=== PATIENT | male | born 1945 | race Caucasian/White ===

== ENCOUNTER 2018-03-23 13:35 | Emergency (ER) | payer OTHER, MEDICARE, SELFPAY ==
[2018-03-23 13:36] VITALS: BP 142/97; PULSE 71; RESP 16; TEMP 36.4; BMI 20.5
[2018-03-23 14:15] LABS: Bacteria 0 SEEN /hpf (None Seen); Mucous, Urine 0 SEEN /hpf (<or=2+); Squamous Epithelial Cells - UA 0 SEEN /hpf (0-5)
[2018-03-23 14:17] LABS: Color, Urine Red (Yellow); Glucose, Dipstick Normal (Normal); Ketone-Dipstick 5 mg/dl (Negative); Leukocyte Esterase-Dipstick 25 /ul (Negative); Nitrite-Dipstick Negative (Negative); Occult Blood-Urine 250 /ul (Negative); Protein-Dipstick 100 mg/dl (Negative); Specific Gravity, Urine 1.015 (1.002-1.030); Urine Bilirubin Dipstick Negative (Negative); Urine Clarity Cloudy (Clear); Urine Urobilinogen Normal (Normal)
[2018-03-23 14:22] LABS: Red Blood Cells-Urine > 100 SEEN /hpf (0-5)
[2018-03-23 14:23] LABS: White Blood Cells 0-5 SEEN /hpf (0-5)
[2018-03-23 15:56] VITALS: BP 148/92; PULSE 84; RESP 16
--- NOTE | 2018-03-23 15:59 | CT_ITS ---
STUDY: CT ABDOMEN AND PELVIS WITHOUT CONTRAST REASON FOR EXAM: Male, 72 years old. Gross hematuria denies pain RADIATION DOSAGE (If Supplied By Facility): CTDIvol = ( 6.15 ) mGy, DLP = ( 321.09 ) mGycm TECHNIQUE: Transaxial images were obtained from the dome of the diaphragm to the symphysis pubis without oral contrast, and without intravenous contrast. Sagittal and coronal images were reconstructed. Individualized dose optimization techniques were used for this CT. COMPARISON: None. FINDINGS: The visualized lung bases are unremarkable. The visualized portions of the heart are within normal limits. There is decreased attenuation of the liver consistent with steatosis. Normal gallbladder and extrahepatic biliary system. There are multiple benign calcified granulomata of the spleen. Normal pancreas. Normal bilateral adrenal glands. Normal right kidney. Normal left kidney. Normal visualized stomach. There mildly distended loops of small bowel. There few diverticula present without diverticulitis. The appendix is visualized and appears normal. There is diffuse atherosclerotic calcification of the abdominal aorta, without a demonstrated aneurysm. Normal inferior vena cava. Normal retroperitoneum. There is an abnormal mass within the right side of the bladder with peripheral calcification measuring 3.7 x 3.8 x 2.2 cm. Normal visualized prostate gland. There is postoperative change status post hernia repair in the anterior abdominal wall. There is mild degenerative change of the thoracolumbar spine. CT/Abdomen/Pelvis without Cont IMPRESSION: There is an abnormal 3.7 x 3.8 x 2.2 cm mass in the right side of the bladder with rim calcification highly suspicious for neoplasm until proven otherwise. Recommend follow-up studies such as cystoscopy and/or cystogram. There is mild to moderate stool in the colon. All there is no evidence of hydronephrosis. Diverticulosis no evidence of diverticulitis. N.B. : The above information has been verbally conveyed by Billie Jacques MD to Dr. Juana Estrada MD, on 03/23/2018 17:03:59 (ET). Electronically Signed: Billie Jacques MD at 16:49 EST Tel , Service support ,
[2018-03-23 16:26] LABS: Absolute Lymphocyte Count 1.46 X10^3/ul (0.83-4.51); Absolute Neutrophil Count 3.7 X10^3/uL (2.0-7.7); Basophil# 0.04 X10^3/uL; Basophil% 0.7 % (0-1); Eosinophil# 0.13 X10^3/uL; Eosinophils% 2.2 % (0-5); Hematocrit 44.9 % (40-54); Hemoglobin 14.9 g/dl (13.0-16.5); Lymphocyte # 1.46 X10^3/ul (4.0); Lymphocyte % 24.8 % (19-41); Mean Corp Hgb Conc 33.2 g/gl (32-36); Mean Corpuscular Hgb 30.2 pg (27.0-32.0); Mean Corpuscular Volume 90.9 fL (80-94); Mean Platelet Vol. 11.1 fl (6.2-12.0); Monocyte# 0.59 X10^3/uL; Neutrophil # 3.66 X10^3/uL (2.7-7.7); Neutrophil % 62.1 % (47-70); Platelet Count 186 K/mm3 (150-450); RBC Distribution Width CV 13.4 % (11.6-14.6); RBC Distribution Width SD 44.7 fl (35.1-43.9); Red Blood Count 4.94 M/mm3 (4.6-6.2); White Blood Count 5.9 K/mm3 (4.4-11.0)
[2018-03-23 16:27] LABS: Anion Gap 7 (5-15); BUN 17 mg/dL (7-18); Chloride 103 mmol/L (98-107); EST Glomerular Filtration Rate 78 mL/min (>60); Est Glom Filt Rate - Afr Amer 95 mL/min (>60); Estimated Creatinine Clearance 67.66 ml/min; Glucose 86 mg/dL (74-106); POSITIVE COUNT NO; POSITIVE DIFFERENTIAL NO; POSITIVE MORPHOLOGY NO; Potassium 3.3 mmol/L (3.5-5.1); Sodium Level 140 mmol/L (136-145)
--- NOTE | 2018-03-23 17:00 | ED.VISSUMM ---
- ER Visit Summary Date of Service: 03/23/18 Chief Complaint: [Hematuria] History of Present Illness: The patient is a 72 M [presents to the emergency department with complaint of blood in his urine that started this morning around 10:30 AM. Patient describes just minimal dysuria and some frequency. He denies any back pain or vomiting. Denies any fever. He is not ever had hematuria before. Patient does have a history of COPD and history of hypertension. Patient is not on any blood thinners.] Physical Examination: [HEENT-PERRLA, EOMI. Cranial nerves II through XII grossly intact. TMs clear. Mucous membranes moist. No adenopathy. Cardiovascular-regular rate and rhythm without murmur or ectopy Lungs-clear to auscultation, chest wall stable without crepitus or subcu emphysema Abdomen-normoactive bowel sounds, soft, nontender, no rebound or rigidity, no peritoneal signs. Extremities-intact ?4, normal range of motion, normal pulses, atraumatic] Test Results: [Urinalysis obtained showed greater than 100 RBCs in the urine without any signs of infection otherwise negative for nitrites 25 facet esterase, no WBCs and no bacteria seen. CBC with differential and chemistries were unremarkable. CT scan abdomen pelvis without contrast obtained showed a 4 x 2 cm mass on the right side of the bladder concerning for neoplasm.] Emergency Department Course and Treatment: [] Treatment Plan: [Patient case discussed with patient and his and they are aware that patient has a suspicious mass in the bladder that will need further investigation and recommended follow-up with urology for possible cystoscopy for definitive diagnosis. No further treatment indicated at this time. [facility] and states that he will go through the [place] but I will refer him to Dr. Hammond as well.] Disposition: [Discharged home in stable condition] Impression: [Hematuria Bladder mass] This note was generated with [employer] dictation software. It may contain incorrect words, spelling, and punctuation that were not noted in review of the chart prior to signing ED Disposition - Plan for ED Patient: Chief Complaint: Complaint [facility] [[facility] Provider] -
--- NOTE | 2018-03-23 17:05 | ED.DCSUM_ITS ---
- ER Visit Summary Date of Service: 03/23/18 Chief Complaint: [Hematuria] History of Present Illness: The patient is a 72 M [presents to the emergency department with complaint of blood in his urine that started this morning around 10:30 AM. Patient describes just minimal dysuria and some frequency. He de nies any back pain or vomiting. Denies any fever. He is not ever had hematuria before. Patient does have a history of COPD and history of hypertension. Patient is not on any blood thinners.] Physical Examination: [HEENT-PERRLA, EOMI. Cranial nerves II through XII grossly intact. TMs clear. Mucous membranes moist. No adenopathy. Cardiovascular-regular rate and rhythm without murmur or ectopy Lungs-clear to auscultation, chest wall stable without crepitus or subcu emphysema Abdomen-normoactive bowel sounds, soft, nontender, no rebound or rigidity, no peritoneal signs. Extremities-intact ?4, normal range of motion, normal pulses, atraumatic] Test Results: [Urinalysis obtained showed greater than 100 RBCs in the urine without any signs of infection otherwise negative for nitrites 25 facet esterase, no WBCs and no bacteria seen. CBC with differential and chemistries were unremarkable. CT scan abdomen pelvis without contrast obtained showed a 4 x 2 cm mass on the right side of the bladder concerning for neoplasm.] Emergency Department Course and Treatment: [] Treatment Plan: [Patient case discussed with patient and his and they are aware that patient has a suspicious mass in the bladder that will need further investigation and recommended follow-up with urology for possible cystoscopy for definitive diagnosis. No further treatment indicated at this time. Patient is [facility] and states that he will go through the [place] but I will refer him to Dr. Hammond as well.] Disposition: [Discharged home in stable condition] Impression: [Hematuria Bladder mass] This note was generated with [employer] dictation software. It may contain incorrect words, spelling, and punctuation that were not noted in review of the chart prior to signing ED Disposition - Plan for ED Patient: Chief Complaint: Complaint [facility] [[facility] Care Provider] -
--- NOTE | 2018-03-23 17:05 | ED.DEP ---
ED Disposition - Plan for ED Patient: Chief Complaint: Complaint Instructions: Hematuria: Possible Causes, ED Hematuria Referrals: [facility],[place] [Primary Care Provider] - 3-5 Days Harshad Hammond MD [STAFF PHYSICIAN] - 3-5 Days
[2018-03-23 17:10] VITALS: BP 146/83; PULSE 68; RESP 18; O2SAT 97
--- NOTE | 2018-03-23 17:23 | ED.RN ---
REVIEWED D/C INSTRUCTIONS, FOLLOW UP CARE, AND S/S THAT WOULD WARRANT A RETURN TO THE ED WITH PT. PT VERBALIZED AN UNDERSTANDING AND DENIES FURTHER QUESTIONS FOR THIS RN. PT SKIN P/W/D, RESP EVEN AND UNLABORED, PT A&O X 3, NO DISTRESS NOTED. PT AMBULATED OUT OF ED, GAIT STEADY.
== END 2018-03-23 17:26 | disposition home or self-care (01) ==
LOC: ED 14:23
PROVIDERS: Emergency Provider Emergency Medicine
DX: R31.9 Hematuria, unspecified (principal); N32.9 Bladder disorder, unspecified; R30.0 Dysuria; R35.0 Frequency of micturition; J44.9 Chronic obstructive pulmonary disease, unspecified; I10 Essential (primary) hypertension; Z79.82 Long term (current) use of aspirin; Z79.899 Other long term (current) drug therapy; Z87.891 Personal history of nicotine dependence
CPT/HCPCS: 74176; 80048; 81001; 85025; 87086; 99284; A4216

== ENCOUNTER 2018-05-20 07:37 | Emergency (ER) | payer MEDICARE, SELFPAY ==
[2018-05-20 07:38] VITALS: BP 125/76; PULSE 109; RESP 16; TEMP 36.3; O2SAT 96; BMI 19.5
--- NOTE | 2018-05-20 08:23 | ED.VISSUMM ---
- ER Visit Summary Date of Service: 05/20/18 Chief Complaint: michele catheter problem History of Present Illness: The patient is a 73 M who presents for concern for Michele catheter displacement. Patient had a Michele catheter placed 5 days ago after a cystoscopy and removal of a bladder tumor at the [place]. Patient has been having no issues with the Michele catheter and states he did have some hematuria for the first 3-4 days but that is now lightened up. Today he noted that the catheter looked different and he was able to see part of it at his penis that he did not notice before. He has been feeling some pain and pressure in the penis, noted when he sits or stands. Patient denies any fever, abdominal pain, nausea or vomiting, diarrhea, or any other complaints at this time. Physical Examination: Patient is well-nourished and well-developed sitting in bed in no distress. Hemodynamically stable. Afebrile. Examination of the Michele catheter shows pink tinged urine, clear, and the Michele catheter and leg bag. No tenderness noted to the penis. Very small amount of dried blood circumferentially around the proximal Michele catheter. No suprapubic fullness or tenderness. Remainder of exam unremarkable. Test Results: [] Emergency Department Course and Treatment: Michele catheter was flushed and drained very easily. Nurse provided education on the appearance of the Michele catheter and how with movement of the penis, sometimes more or less of the catheter will be exposed. Patient was given Tylenol and had improvement in his discomfort. There was no noted issue with the Michele catheter and it is draining well. Patient felt well and was discharged home. He will follow-up as he was supposed to for further workup of his bladder tumor. Treatment Plan: [] Disposition: [] Impression: Michele catheter check This note was generated with [employer] dictation software. It may contain incorrect words, spelling, and punctuation that were not noted in review of the chart prior to signing ED Disposition - Plan for ED Patient: Disposition: Home or Assisted Living Instructions: ED Catheter Care Michele Referrals: [facility] [Primary Care Provider] - Keep [facility] appointment
[2018-05-20] MEDS: Acetaminophen 325 MG Tablet 650 MG PO (09:04)
== END 2018-05-20 09:24 | disposition home or self-care (01) ==
PROVIDERS: Emergency Provider Emergency Medicine
DX: Z46.6 Encounter for fitting and adjustment of urinary device (principal); R31.9 Hematuria, unspecified; Z79.899 Other long term (current) drug therapy
CPT/HCPCS: 99282

== ENCOUNTER 2018-07-05 07:20 | Inpatient (IN) | payer MEDICARE, SELFPAY ==
[2018-06-28 08:33] VITALS: BMI 19.4
[2018-07-05] VITALS (17 sets, daily range): BP systolic 88–127; BP diastolic 45–73; PULSE 75–115; RESP 10–20; TEMP 36.4–37; O2SAT 95–100; BMI 19.2; BMI 19.8
--- NOTE | 2018-07-05 07:36 | RAD_ITS ---
STUDY: X-RAY CHEST REASON FOR EXAM: Male, 73 years old. History of fever. Patient is on chemotherapy for bladder carcinoma. TECHNIQUE: PA and lateral views of the chest. COMPARISON: Comparison is made with prior study dated June 25, 2015. FINDINGS: A right-sided portacatheter is seen with the tip in the midportion of the superior vena cava. Hyperinflation. Decreased bilateral bronchovascular markings suggestive of emphysematous changes. Stable mild bilateral apical scarring. There is no demonstrated pleural abnormality. Normal size heart. Normal mediastinum and rozina. Normal visualized pulmonary arteries. Normal visualized aortic arch and descending thoracic aorta. Normal visualized thoracic spine. Normal visualized ribs, clavicles, and shoulders. There is no demonstrated abnormality of the visualized soft tissue structures of the upper abdomen. RAD/Chest PA and Lateral IMPRESSION: Hyperinflation and COPD. The lungs are clear. Electronically Signed: Evans Pearce, at 10:15 EDT , Service support ,
[2018-07-05 08:23] LABS: Color, Urine Yellow (Yellow); Glucose, Dipstick Normal (Normal); Ketone-Dipstick 5 mg/dl (Negative); Leukocyte Esterase-Dipstick 500 /ul (Negative); Nitrite-Dipstick Positive (Negative); Occult Blood-Urine 25 /ul (Negative); Protein-Dipstick 30 mg/dl (Negative); Specific Gravity, Urine 1.015 (1.002-1.030); Urine Clarity Sl. Cloudy (Clear); Urine Urobilinogen 4 mg/dl (Normal)
[2018-07-05 08:28] LABS: Urine Bilirubin Dipstick 1 mg/dL (Negative)
--- NOTE | 2018-07-05 08:29 | ED.DCSUM_ITS ---
- ER Visit Summary Date of Service: 07/05/18 Chief Complaint: Fever History of Present Illness: The patient is a 73 M who presents with a fever that began today. Patient states his temperature this morning was 100.6 at home. Patient recently started chemotherapy for bladder cancer. Patient states that he was told if his temperature was greater than 100.4 he should come to the emergency department. Further evaluation. Patient admits to a headache. Patient admits to some nausea. Patient denies any vomiting. Patient states he has had some intermittent episodes of hematuria. Patient denies any dysuria however. Patient denies any chest pain or cough. Physical Examination: Vital signs are stable except for mild tachycardia of 115. Patient is afebrile here. Patient is in no acute distress. Oral mucosa is pink and moist. Neck is supple. Trachea is midline. There is no JVD noted. Heart was regular and tachycardic. Lungs clear and equal bilateral. Abdomen is soft and nontender. Cranial nerves II through XII are intact. There are no focal motor or sensory deficits noted. The remaining physical exam is within normal limits. Test Results: Urinalysis shows evidence of urinary tract infection. CBC shows a white blood cell count of 0.9. Potassium was slightly low at 3.3. Urine culture and blood cultures were obtained. Lactate was normal. Emergency Department Course and Treatment: Patient was given IV fluid bolus here. Patient was started on Zosyn. Patient felt better on reevaluation. Case was discussed with Dr. Espinosa. She will admit the patient to PCU stepdown. Patient understood and was agreeable with the plan. All questions were answered. Disposition: Admit to hospital Impression: 1. Urinary tract infection 2. Neutropenic sepsis This note was generated with [employer] dictation software. It may contain incorrect words, spelling, and punctuation that were not noted in review of the chart prior to signing ED Disposition - Plan for ED Patient: Disposition: Acute Care Hospital [facility] Diagnosis: Urinary tract infection, Neutropenic sepsis [facility] [Primary Care Provider] -
[2018-07-05 08:31] LABS: Bacteria 4+ /hpf (None Seen); Mucous, Urine RARE /hpf (<or=2+); Red Blood Cells-Urine 0-5 SEEN /hpf (0-5); Squamous Epithelial Cells - UA 0-5 SEEN /hpf (0-5); White Blood Cells 25-50 SEEN /hpf (0-5)
[2018-07-05 08:41] LABS: Absolute Lymphocyte Count 0.37 X10^3/ul (0.83-4.51); Basophil# 0.01 X10^3/uL; Basophil% 1.1 % (0-1); Eosinophil# 0.01 X10^3/uL; Eosinophils% 1.1 % (0-5); Hematocrit 37.6 % (40-54); Hemoglobin 12.2 g/dl (13.0-16.5); Lymphocyte # 0.37 X10^3/ul (4.0); Mean Corp Hgb Conc 32.4 g/gl (32-36); Mean Corpuscular Hgb 28.9 pg (27.0-32.0); Mean Corpuscular Volume 89.1 fL (80-94); Mean Platelet Vol. 10.3 fl (6.2-12.0); Monocyte# 0.46 X10^3/uL; Monocyte% 52.3 % (0-10); Neutrophil # 0.01 X10^3/uL (2.7-7.7); Neutrophil % 1.2 % (47-70); Platelet Count 158 K/mm3 (150-450); RBC Distribution Width CV 13.5 % (11.6-14.6); RBC Distribution Width SD 44.3 fl (35.1-43.9); Red Blood Count 4.22 M/mm3 (4.6-6.2)
[2018-07-05 08:46] LABS: POSITIVE COUNT YES; POSITIVE DIFFERENTIAL YES; POSITIVE MORPHOLOGY YES; White Blood Count 0.9 K/mm3 (4.4-11.0)
[2018-07-05 08:47] LABS: Differential Indicated SCAN CRITERIA MET
--- NOTE | 2018-07-05 08:47 | ED.RN ---
WBC 0.9, MD AWARE.
[2018-07-05 08:57] LABS: AST(SGOT) 32 U/L (15-37); Alanine Aminotransfer ALT/SGPT 96 U/L (16-61); Albumin, Serum 3.4 g/dL (3.2-5.0); Alkaline Phosphatase 173 U/L (45-117); Anion Gap 6 (5-15); BUN 21 mg/dL (7-18); BUN/Creat Ratio 22.5 RATIO (10-20); Calcium,Total 8.6 mg/dL (8.5-10.1); Chloride 100 mmol/L (98-107); Creatinine, Serum 0.94 mg/dL (0.70-1.30); EST Glomerular Filtration Rate 84 mL/min (>60); Est Glom Filt Rate - Afr Amer 102 mL/min (>60); Estimated Creatinine Clearance 66.41 ml/min; Globulin 3.4 g/dL (2.2-4.2); Glucose 103 mg/dL (74-106); Potassium 3.3 mmol/L (3.5-5.1); Protein, Total 6.8 g/dL (6.4-8.2); Sodium Level 136 mmol/L (136-145)
[2018-07-05 08:59] LABS: Lactic Acid 1.1 mmol/L (0.4-2.0)
[2018-07-05] MEDS: Acetaminophen 500 MG Tablet 1000 MG PO (09:03)
--- NOTE | 2018-07-05 11:10 | HP.PCM_ITS ---
History of Present Illness Date of Admission: 07/05/18 Chief Complaint: fever The patient is a 73 year old M with a PMH as listed who was admitted via the ED on 07/05/18 with a complaint of fever. He was recently diagnosed with bladder cancer in March 2018 and is s/p bladder tumor resection in May 2018. He started his first round of chemotherapy last week Sunday and has had 3 sessions and the first 1. He started having fever on the day prior to admission with temperature began to 100.4. He was arrested nausea but denied any vomiting. He denied any cough or chest pain or shortness of breath, abdominal pain, burning with urination, diarrhea vomiting. He had been told by his oncologist to come to the hospital if his fever was under 0.4 Fahrenheit or higher and so he decided to come in. On admission in the ED, vitals were significant for low blood pressure with systolic being in the 80s. CMP showed creatinine of 3.3 and lactic acid was only 1.1. White cell count was 0.9. Chest x-ray showed no evidence of infiltrate. He has been admitted to be managed for febrile neutropenia. [] Past Medical History Past Medical History (Chronic Problems): Chronic Problems (Last Updated 06/26/18 @ 08:37 by Beverly Clemons) Hypertension (Chronic) Bladder cancer (Chronic) Malignant small cell cancer (Chronic) Medical History: Medical History (Last Updated 06/26/18 @ 08:37 by Beverly Clemons) Bilateral tinnitus H93.13 Diverticulitis K57.92 Hypokalemia E87.6 bladder tumor resection port placement Power Port placed 06/25/18 COPD (chronic obstructive pulmonary disease) J44.9 COPD (chronic obstructive pulmonary disease) J44.9 Allergies No Known Allergies Allergy (Verified 07/05/18 07:22) Home Medications: Ambulatory Orders Medication Instructions Recorded Ondansetron [Zofran] 8 mg PO Q8H PRN PRN 30 Days #30 tab 06/12/18 Ensure Enlive 120 ml PO BID 07/05/18 Tiotropium [place] [Spiriva] 18 mcg IH DAILY 07/05/18 Surgical History: Surgical History (Last Reviewed 06/26/18 @ 08:36 by Beverly Clemons) History of cystoscopy Z98.890 05/15/18 Surgical History: herniorrhaphy, - - right elbow surgery Psychiatric History: No pertinent psych hx, Anxiety Lives: Spouse/ Significant Other Smoking Status: Former smoker Alcohol: None - hasnt drank since March 2018. Drugs: None - *Family History Maternal Family History: Family History (Last Reviewed 06/26/18 @ 08:36 by Beverly Clemons) Mother Breast cancer Father CVA (cerebral vascular accident) Hypertension Sister Hypertension Brother Hypertension History Items: Cancer, Dementia - alive age 92 Paternal Family History: Family History (Last Reviewed 06/26/18 @ 08:36 by Beverly Clemons) Mother Breast cancer Father CVA (cerebral vascular accident) Hypertension Sister Hypertension Brother Hypertension History Items: Heart Disease - age 79 Review of Systems Constitutional: Reports: Fever. Denies: Chills, Malaise, Weakness, Weight Change, Fatigue Eyes: Denies: Blurred vision HEENT: Denies: Head Aches, Sinus Congestion, Sinus Drainage Cardiovascular: Denies: Chest Pain, Chest Tightness, Edema, Heaviness, Light Headedness, Orthopnea, Palpitations Respiratory: Denies: Cough, Shortness of breath at rest, Sputum production Gastrointestinal: Reports: Nausea. Denies: Abdominal Pain, Diarrhea, Vomiting Genitourinary: Denies: Dysuria, Hematuria, Hesitancy, Incontinence Musculoskeletal: Denies: Joint Pain, Joint Tenderness Skin: Denies: Rash, Wounds Neurological: Denies: Numbness, Tingling, Focal weakness Psychiatric: Denies: Anxiety, Depression, Homicidal Ideations, Suicidal Ideations Hematologic/ Lymphatic: Denies: Easy Bruising, Easy Bleeding VTE Information - Inpt Only VTE Present on Admission: No VTE Pharm Prophylaxis ordered?: Yes Patient Problems: Active and Suspected Problems (Last Updated 06/26/18 @ 08:37 by Beverly Clemons) Urinary tract infection (Acute) Neutropenic sepsis (Acute) - Physical Exam General: Alert, Oriented x3, Cooperative, No apparent distress HEENT: Atraumatic, PERRLA, EOMI, Normocephalic Oral: Moist Mucosa Neck: Supple, No JVD, Negative Carotid Bruits Lungs: Clear to auscultation, Normal air movement, No rhonchi, No wheeze, No rales Cardiovascular: Regular rate, Regular Rhythm, Normal S1, Normal S2, No murmurs Abdomen: Bowel Sounds Present, Soft, Non Tender, Non-Distended, No Hepato- splenomegaly Extremities: No clubbing, No cyanosis, No edema, Capillary Refill Less than 3 Seconds Skin: No rashes, No breakdown Musculoskeletal: No Tenderness to Palpation of Joints or Extremities Lymphatic: No Cervical, Supraclavicular, or Inguinal Adenopathy Neurological: Cranial nerves II-XII grossly intact, Neuro grossly intact, Motor Exam 5/5 strength throughout Psych/Mental Status: Normal Affect, Appropriate, Alert and oriented to time, place, person, mood and affect Vital Signs Temp Pulse Resp BP Pulse Ox 98.1 F 84 18 88/49 L 96 07/05/18 10:50 07/05/18 10:52 07/05/18 10:52 07/05/18 10:52 07/05/18 10:52 Oxygen Delivery Method Room Air Weight: 145 lb 11.609 oz Body Mass Index (BMI) 19.2 Laboratory Tests Past 24 Hrs 07/05/18 07/05/18 07/05/18 08:10 08:25 08:25 WBC 0.9 L* RBC 4.22 L Hgb 12.2 L Hct 37.6 L MCV 89.1 MCH 28.9 MCHC 32.4 RDW 13.5 RDW Differential 44.3 H Plt Count 158 MPV 10.3 Immature Gran % (Auto) 2.300 H Neut % (Auto) 1.2 L Lymph % (Auto) 42.0 H [place] % (Auto) 52.3 H Eos % (Auto) 1.1 Baso % (Auto) 1.1 H Absolute Neuts (auto) 0.0 L Absolute Lymphs (auto) 0.37 L Total Counted Not Reportable Differential Comment COMMENT Diff Path Review May foll Sodium 136 Potassium 3.3 L Chloride 100 Carbon Dioxide 30.0 Anion Gap 6 BUN 21 H Creatinine 0.94 Estim Creat Clear Calc 66.41 Est GFR (MDRD) Af Amer 102 Est GFR (MDRD) Non-Af 84 BUN/Creatinine Ratio 22.5 H Glucose 103 Lactic Acid Calcium 8.6 Total Bilirubin 0.70 AST 32 ALT 96 H Alkaline Phosphatase 173 H Total Protein 6.8 Albumin 3.4 Globulin 3.4 Albumin/Globulin Ratio 1.0 Urine Color Yellow Urine Clarity Sl. Cloudy Urine pH 8.0 Ur Specific [place] 1.015 Urine Protein 30 H Urine Glucose (UA) Normal Urine Ketones 5 H Urine Occult Blood 25 H Urine Nitrite Positive H Urine Bilirubin 1 H Urine Urobilinogen 4 H Ur Leukocyte Esterase 500 H Urine RBC 0-5 SEEN Urine WBC 25-50 SEEN Ur Squamous Epith Cells 0-5 SEEN Urine Bacteria 4+ Urine Mucus RARE 07/05/18 08:25 WBC RBC Hgb Hct MCV MCH MCHC RDW RDW Differential Plt Count MPV Immature Gran % (Auto) Neut % (Auto) Lymph % (Auto) [place] % (Auto) Eos % (Auto) Baso % (Auto) Absolute Neuts (auto) Absolute Lymphs (auto) Total Counted Differential Comment Diff Path Review Sodium Potassium Chloride Carbon Dioxide Anion Gap BUN Creatinine Estim Creat Clear Calc Est GFR (MDRD) Af Amer Est GFR (MDRD) Non-Af BUN/Creatinine Ratio Glucose Lactic Acid 1.1 Calcium Total Bilirubin AST ALT Alkaline Phosphatase Total Protein Albumin Globulin Albumin/Globulin Ratio Urine Color Urine Clarity Urine pH Ur Specific [place] Urine Protein Urine Glucose (UA) Urine Ketones Urine Occult Blood Urine Nitrite Urine Bilirubin Urine Urobilinogen Ur Leukocyte Esterase Urine RBC Urine WBC Ur Squamous Epith Cells Urine Bacteria Urine Mucus Diagnostic Data Chest X-Ray 07/05/18 07:36 IMPRESSION: Hyperinflation and COPD. The lungs are clear. Electronically Signed: Evans Pearce, at 10:15 EDT , Service support , Assessment/Plan All Active Problems (Last Updated 06/26/18 @ 08:37 by Beverly Clemons) Chest pain (Acute) Encounter for education (Acute) Urinary tract infection (Acute) Neutropenic sepsis (Acute) 73-year-old male admitted with a complaint of fever. 1. Febrile neutropenia due to UTI * fever peaked at 100.4F at home and BP was in 90s and 80s systolic on admission; usually runs in 120s and 130s on BP meds * wbc was 0.9, no clear focus of infection * Admit to PCU stepdown unit in light of febrile neutropenia. * Consult oncology. * Blood cultures and urine cultures obtained. UA showed 4+ bacteria with wbc of 25-50 * Start IV zosyn. * hydrate with IVF NS ~ 150cc/hr * neutropenic and chemotherapy precautions * start SC granix 300mg daily * 2. septic shock due to UTI * SIRS criteria on admission was 2/4 (neutropenia, tachycardia with HR of 115) * BP was in 80s and 90s systolic * resuscitate per sepsis protocol wtih IVF NS ~ 30cc/hr over first 3 hours, then continue with 150 cc/h * Patient currently stable though blood pressures in the 90s. We will keep in PCU on stepdown status and transfer to ICU if needed. * on zofran for nausea * 3. Bladder cancer: Status post bladder tumor resection in May 2018. Undergoing chemotherapy. Oncology consulted. 4.COPD: on tiotropium. give breathing treatments DVT prophylaxis: lovenox Code status: Full code * Patient counseled extensively about different types of CODE STATUS including full code, DNR CCA and DNR CCA. Patient elects to be full code. * Total clet-cl-pmkb time 16 minutes. Code Visit Inpatient E&M: 53503 Init Hosp L3 Procedures: 60265 Advncd Care Plan 30 Min
[2018-07-05] MEDS: 0.9% Normal Saline 1,000 ML IV.SOLN. 1983 ML IV (11:45)
[2018-07-05 13:42] LABS: Pathologist Review Reviewed
[2018-07-05] MEDS: TBO-FILGRASTIM 300 MCG/0.5 ML ML SC (14:28)
[2018-07-05] MEDS: 0.9% Normal Saline 1,000 ML 150 ML IV ×2 (14:31→23:49)
[2018-07-05] MEDS: Acetaminophen 325 MG Tablet 650 MG PO ×2 (16:42→23:49)
[2018-07-05] MEDS: Ipratropium 0.5 MG/2.5 ML SOLUTION INHALATION (20:30)
[2018-07-06] VITALS (14 sets, daily range): BP systolic 107–120; BP diastolic 60–63; PULSE 75–90; RESP 14–18; TEMP 36.3–36.9; O2SAT 95–97
[2018-07-06] MEDS: 0.9% NaCl Peripheral Flush Adult/Peds IV ×2 (05:31→05:32)
[2018-07-06] MEDS: 0.9% Normal Saline 1,000 ML 150 ML IV ×2 (05:31→12:13)
[2018-07-06 05:48] LABS: Absolute Lymphocyte Count 0.63 X10^3/ul (0.83-4.51); Absolute Neutrophil Count 1.2 X10^3/uL (2.0-7.7); Basophil# 0.01 X10^3/uL; Basophil% 0.4 % (0-1); Eosinophil# 0.03 X10^3/uL; Eosinophils% 1.2 % (0-5); Hematocrit 30.9 % (40-54); Hemoglobin 9.9 g/dl (13.0-16.5); Lymphocyte # 0.63 X10^3/ul (4.0); Lymphocyte % 25.7 % (19-41); Mean Corpuscular Hgb 28.8 pg (27.0-32.0); Mean Corpuscular Volume 89.8 fL (80-94); Mean Platelet Vol. 9.9 fl (6.2-12.0); Monocyte# 0.51 X10^3/uL; Monocyte% 20.8 % (0-10); Neutrophil # 1.23 X10^3/uL (2.7-7.7); Neutrophil % 50.3 % (47-70); POSITIVE COUNT NO; POSITIVE DIFFERENTIAL NO; POSITIVE MORPHOLOGY YES; Platelet Count 124 K/mm3 (150-450); RBC Distribution Width SD 45.9 fl (35.1-43.9); Red Blood Count 3.44 M/mm3 (4.6-6.2); White Blood Count 2.5 K/mm3 (4.4-11.0)
[2018-07-06 05:49] LABS: Differential Indicated SCAN CRITERIA MET
[2018-07-06 05:56] LABS: Anion Gap 7 (5-15); BUN 21 mg/dL (7-18); BUN/Creat Ratio 23.2 RATIO (10-20); Calcium,Total 7.7 mg/dL (8.5-10.1); Chloride 112 mmol/L (98-107); EST Glomerular Filtration Rate 88 mL/min (>60); Est Glom Filt Rate - Afr Amer 106 mL/min (>60); Estimated Creatinine Clearance 71.36 ml/min; Glucose 83 mg/dL (74-106); Potassium 3.3 mmol/L (3.5-5.1); Sodium Level 145 mmol/L (136-145)
[2018-07-06] MEDS: Acetaminophen 325 MG Tablet 650 MG PO ×2 (05:57→17:12)
[2018-07-06 06:22] LABS: Differential Comment SCANNED
[2018-07-06 06:23] LABS: Platelet Estimate SLT DEC (ADEQ)
[2018-07-06] MEDS: Ipratropium 0.5 MG/2.5 ML SOLUTION INHALATION ×2 (06:49→18:57)
[2018-07-06] MEDS: Enoxaparin 40 MG/0.4 ML Syringe SC (09:27)
--- NOTE | 2018-07-06 10:09 | NURSING ---
Student nurse charting reviewed.
--- NOTE | 2018-07-06 10:18 | CASEMGMT ---
Addendum entered by Ryan Womack 07/06/18 11:09: Reviewed [facility] transfer form with pt. Pt states he does not wish to transfer to [facility] but does not wish to sign form as he states his [facility] benefits may pay for hospital stay as he has a choice plan. states they will work with payment on dc. -recommend dc summary/ instructions be faxed to Dr. Rigoberto Dukes on dc. [facility] Office is closed today. -Dr. French, oncologist Latasha PATEL Original Note: RN CM Assessment Presentation: Neutropenic Fever Intro role of CM and purpose of RN CM assessment to patient and his . Pt is awake, alert and able to participate in assessment. Demographics, PCP and Pharmacy verified. PCP: [facility], Dr. Rigoberto Dukes Preferred Pharmacy: [facility] Insurance: [facility] [place] benefits Prescription Benefit: yes, pt has short term scripts filled locally and channeler runner through [facility] LNOK: [place] Living Arrangements: Lives independently in single story home. Transportation: Drives DME: none HHC: none Patient DC goals: none DC PLAN: home Latasha GOMEZM
--- NOTE | 2018-07-06 12:06 | NS ---
Eliminate foods w/ possible bacterial contamination / chemo pt.
--- NOTE | 2018-07-06 12:43 | ONC.CONS.INP ---
Subjective Date of Service:: 07/06/18 Chief Complaint: Febrile neutropenia History of Present Illness: Mr. Arnoldo Brown is a very pleasant 73 year old man with a PMH for hypertension who presented with gross hematuria in March 2018. CT scan revealed a bladder mass. He initially went to the [facility], CT urogram on 04/04/2018 confirmed 4 cm mass involving the right side of the bladder. 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 He underwent another CT scan on 05/30/2018 which showed bladder mass with multiple liver lesions and iliac right external iliac nodes consistent with metastatic adenopathy. Transferred care to [facility], [place] and commenced with cycle 1 carboplatin/etoposide on 06/26/18 and supported with Neulasta on day 4. He experienced chills and fever (highest temp at home 100.6) on 07/05/18. As a result he presented to [facility] ED, UA suggested UTI and he was subsequently admitted for management. Urine and blood cultures obtained. Broad spectrum atb initiated. Today is day 11 of his 21 day cycle. Upon entering the room, patient sitting upright in bed eating lunch. Denies experiencing chills/feeling clammy since admission. Further denies dysuria, hematuria, urinary frequency and back pain. Describes appetite as good-fair, nausea well controlled with Zofran. Has not resulted in any emesis. Past Medical History: Chronic Problems (Last Updated 06/26/18 @ 08:37 by Beverly Clemons) Hypertension (Chronic) Bladder cancer (Chronic) Malignant small cell cancer (Chronic) Past Medical/Surgical History: Past Medical History - Most Recent Inpatient Visit Past Medical History Start: 07/05/18 12:47 Text: Status: Complete Freq: ONCE Protocol: Document 07/05/18 12:50 EY (Rec: 07/05/18 12:53 EY [id number]) BMI Required to complete PMH What is Patient's BMI 19.8 Past Medical History Unable History Recalled No Query Text:Pt Unable/Family Not Present Neurologic Medical History Hx Stroke/TIA No Hx Dementia/Alzheimer's No Hx Parkinson's Disease No Hx Seizures No Hx Multiple Sclerosis No Hx Migraines No Cardiac Medical History VTE Present on Admission No Hx of Deep Vein Thrombosis/VTE/PE No Hx Hypertension Yes: on meds Hx Chest Pain/Angina No Hx Heart Attack No Hx Cardiac Surgery/Stents/Etc. No Hx Heart Failure No Hx Pacemaker/AICD No Hx Irregular Heartbeat and/or Afib No Hx Anticoagulant Therapy No Query Text:(Coumadin, Aspirin, Plavix, Xarelto, etc.) Hx Pain in Legs when Walking/Leg Cramps No Respiratory Medical History Hx COPD Yes Hx Emphysema No Hx Smoking Yes Smoking Status Former smoker Hx Smoking Cessation Date 1984 Hx Tobacco Use in last 12 months No Hx of Pipe Smoking No Hx Sleep Apnea No Do you snore loudly (louder than talking No or can be heard through closed doors)? Do you often feel tired/ fatigued/ No sleepy during daytime? Has anyone observed you stop breathing No during sleep? STOP Results Negative GI Medical History Hx Ulcer No Hx Hepatitis No Hx Cirrhosis No Hx GI Bleed No Hx Unplanned Weight Loss No Genitourinary Medical History Indwelling Catheter in Place on Arrival/ No Admission Hx Renal Disease No Hx Dialysis No Musculoskeletal History Hx Arthritis No Hx Rheumatoid Arthritis No Endocrine Medical History Hx Diabetes No Hx Thyroid Disease No Hematologic Medical History Hx of Blood Transfusion No Hx of Transfusion in last 3 Months No Ever experience any problems with No transfusion(s)? Hx of Preganancy in last 3 Months N/A Nurse Filling Out Transfusion & EYOUNG Questions: Date: 07/05/18 Time: 12:52 Psycho/Social Medical History Hx Depression No Hx Anxiety No Hx Behavior Disorder No Hx Alcohol Use Yes: social Hx Substance Use No Other Medical History Hx Blood Disorders No Hx Anemia No Hx Cancer Yes: bladder ca Hx Drug Resistant Organism No Wound/Pressure Injury Present on Arrival No /Admission Query Text:If yes, chart assessment in Shift/Clinical Findings Central Line/PICC/VAD Present on Arrival No /Admission Antibiotics within last 7 days? No Methicillin Resistant Staphylococcus aureus Screening Active MRSA No Risk for Readmission Number of Risk Factors 3 At Risk for Readmission Patient is At Risk For Readmission Patient is eligible for Call Back Y Past Medical History (Last Updated 06/26/18 @ 08:37 by Beverly Clemons) Bilateral tinnitus (Acute) Diverticulitis (Acute) Hypokalemia (Acute) bladder tumor resection (Acute) port placement (Acute) COPD (chronic obstructive pulmonary disease) (Chronic) COPD (chronic obstructive pulmonary disease) (Chronic) Past Surgical History (Last Reviewed 06/26/18 @ 08:36 by Beverly Clemons) History of cystoscopy (Acute) Maternal Family History: Family History (Last Reviewed 06/26/18 @ 08:36 by Beverly Clemons) Mother Breast cancer Father CVA (cerebral vascular accident) Hypertension Sister Hypertension Brother Hypertension Family History: Cancer, Dementia - alive age 92 Paternal Family History: Family History (Last Reviewed 06/26/18 @ 08:36 by Beverly Clemons) Mother Breast cancer Father CVA (cerebral vascular accident) Hypertension Sister Hypertension Brother Hypertension Family History: Heart Disease - age 79 - Social History Lives: Spouse/ Significant Other Smoking Status: Former smoker Alcohol: None - hasnt drank since March 2018. Drugs: None Allergies/Adverse Reactions: Allergy/AdvReac Type Severity Reaction Status Date / Time No Known Allergies Allergy Verified 07/05/18 07:22 Review of Systems Constitutional:: Reports: Fatigue. Denies: Fever, Sweats, Weight loss, Appetite change, Chills Cardiovascular:: Denies: Chest pain, Palpitations, Dyspnea on exertion, Orthopnea, PND, Shortness of breath Respiratory: Denies: Cough, Hemoptysis, Shortness of Breath, Wheezing Gastrointestinal:: Reports: Nausea. Denies: Abdominal pain, Vomiting, Diarrhea, Constipation, Melena, Hematochezia Genitourinary: Denies: Dysuria, Hematuria, Nocturia, Flank pain Musculoskeletal:: Denies: Back pain, Myalgia, Arthralgia Skin: Denies: Rash, Skin Changes, Wounds Neurological:: Reports: Numbness, Tingling - left ankle, chronic unchanged. Denies: Headache, Dizziness, Visual changes, Tinnitus, Hearing loss Psychiatric: Denies: Anxiety, Depression, Homicidal Ideations, Suicidal Ideations Vital Signs Height 6 ft 1 in Weight: 149 lb 14.629 oz Weight in Pounds 149.9 lbs Pulse Ox 97 Temperature 98.5 F Pulse Rate 90 Respiratory Rate 14 Blood Pressure [2nd BP] 127/65 Blood Pressure 107/63 Blood Pressure Position [2nd Semi-Fowlers BP] Blood Pressure Position Sitting - Physical Exam General: Alert, Oriented x3, No apparent distress HEENT: Atraumatic, PERRLA, EOMI, Normocephalic Oropharynx:: Negative for: Dry mucosa, Ulcerated lesions Neck:: Supple, Trachea midline. Negative for: JVD, bilateral Cardiac:: Regular rate, Regular rhythm, Normal S1, Normal S2. Negative for: Murmur Lungs: Clear to auscultation, Excusion symmetrical. Negative for: Rhonchi, Wheezes Abdomen:: Bowel sounds x 4, Soft, Non-tender, Non-distended, - - minute area of ecchymosis r/t Lovenox administration. Negative for: Hepatosplenomegaly Extremities:: Negative for: Cyanosis, Edema Neurological: Neuro grossly intact Skin:: Negative for: Lesions, Rash, Petechiae, Ecchymosis Psychiatric:: Appropriate affect, Euthymic Lymphatics:: Negative for: Cervical lymphadenopathy, Supraclavicular lymphadenopathy, Axillary lymphadenopathy Laboratory Data: Microbiology 07/05/18 08:10 Urine Culture - Preliminary Urine, Clean Catch GNR Poss Pseudomonas sp Laboratory Tests 07/06/18 07/06/18 07/05/18 Range/Units 05:30 05:30 08:25 WBC 2.5 L (4.4-11.0) K/mm3 RBC 3.44 L (4.6-6.2) M/mm3 Hgb 9.9 L (13.0-16.5) g/dl Hct 30.9 L (40-54) % MCV 89.8 (80-94) fL MCH 28.8 (27.0-32.0) pg MCHC 32.0 (32-36) g/gl RDW 14.0 (11.6-14.6) % RDW Differential 45.9 H (35.1-43.9) fl Plt Count 124 L (150-450) K/mm3 MPV 9.9 (6.2-12.0) fl Immature Gran % (Auto) 1.600 H (0.0-0.9) % Neut % (Auto) 50.3 (47-70) % Lymph % (Auto) 25.7 (19-41) % [place] % (Auto) 20.8 H (0-10) % Eos % (Auto) 1.2 (0-5) % Baso % (Auto) 0.4 (0-1) % Absolute Neuts (auto) 1.2 L (2.0-7.7) X10^3/uL Absolute Lymphs (auto) 0.63 L (0.83-4.51) X10^3/ul Total Counted Not Reportable Differential Comment SCANNED Diff Path Review May foll Reviewed Platelet Estimate SLT DEC (ADEQ) Sodium 145 (136-145) mmol/L Potassium 3.3 L (3.5-5.1) mmol/L Chloride 112 H (98-107) mmol/L Carbon Dioxide 26.0 (21.0-32.0) mmol/L Anion Gap 7 (5-15) BUN 21 H (7-18) mg/dL Creatinine 0.90 (0.70-1.30) mg/dL Estim Creat Clear Calc 71.36 ml/min Est GFR (MDRD) Af Amer 106 (>60) mL/min Est GFR (MDRD) Non-Af 88 (>60) mL/min BUN/Creatinine Ratio 23.2 H (10-20) RATIO Glucose 83 (74-106) mg/dL Calcium 7.7 L (8.5-10.1) mg/dL Diagnostic Data: Diagnostic Data Chest X-Ray 07/05/18 07:36 IMPRESSION: Hyperinflation and COPD. The lungs are clear. Electronically Signed: Evans Ramses, at 10:15 EDT , Service support , Assessment and Plan 1. Febrile Neutropenia- Urine identified as source of infection. Preliminary urine culture + for possible pseudomonas, blood cultures still pending. Managed with IV Zosynn at the present time. Afebrile. Patient was supported with long acting G CSF (Neulasta on 06/29/18). ANC today 1.2. However, unsure if inflated d/t administration of short acting G CSF (Granix) yesterday. Using ASCO Clinical Index of Stable Febrile Neutropenia tool, patient score is 0 indicating out patient management can be considered. Criteria for discharge on PO atb, to remain afebrile and ANC >1, once cultures are final. 2. 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 Aside from bone marrow suppression, patient has tolerated well. Cycle 2 due 07/17/18. 3. Pancytopenia- Today is day 11 of the 21 day chemotherapy cycle. Carboplatin tends to MANAS later in the cycle. It is not unlikely Hgb and platelets will continue to decline before improvement is noted. Only hold Lovenox for platelets < 50,000 in the absence of overt bleeding. Upon discharge, patient to follow up with me at [facility] on 07/10/18 for a scheduled toxicity assessment. Yasmine Cerda, MACHINE OPERATOR [employer], AOCNP Medications: Prescriptions This Visit Medication Instructions Recorded Chlorthalidone 12.5 mg PO DAILY 07/05/18 Ensure Enlive 240 ml PO BID 07/05/18 Tiotropium [place] [Spiriva] 18 mcg IH DAILY 07/05/18 Medications Added to Medication List This Visit Category Date Time Status Enoxaparin [Lovenox] Med 07/06/18 10:00 Active 40 mg SC DAILY@1000 Ensure Enlive Med 07/06/18 14:00 Active 120 ml PO 4X/DAY Ibuprofen [Motrin] Med 07/06/18 05:44 Active 400 mg PO Q6H PRN PRN Primary Care Provider: [facility] Referring Provider: - Problem List (1) Malignant small cell cancer Status: Chronic (2) Neutropenia, febrile Status: Acute (3) Pancytopenia due to antineoplastic chemotherapy Status: Acute
--- NOTE | 2018-07-06 12:48 | PN_ITS ---
Patient Problems: Active and Suspected Problems (Last Updated 06/26/18 @ 08:37 by Beverly Clemons) Urinary tract infection (Acute) Neutropenic sepsis (Acute) Neutropenia, febrile (Acute) Pancytopenia due to antineoplastic chemotherapy (Acute) Subjective: Patient denies new lower urinary tract symptoms including burning micturition b ut has chronic increased frequency and urgency secondary to history of bladder cancer. He urinates every 2-3 hours. No fever overnight. Vitals/I&O's: Vital Signs Temp Pulse Resp BP Pulse Ox 98.5 F 90 14 107/63 97 07/06/18 09:40 07/06/18 09:56 07/06/18 09:40 07/06/18 09:40 07/06/18 09:40 Oxygen Delivery Method Room Air Weight: 149 lb 14.629 oz Body Mass Index (BMI) 19.8 Intake and Output for Last 24 Hours 07/04/18 07/05/18 07/06/18 23:59 23:59 23:59 Intake Total 1958 Balance 1958 General: Alert, Oriented x3, Cooperative HEENT: Atraumatic, PERRLA, EOMI, Normocephalic Neck: Supple, No JVD, Negative Carotid Bruits Lungs: Clear to auscultation, Normal air movement, No rhonchi, No wheeze, No rales Cardiovascular: Regular rate, Regular Rhythm, Normal S1, Normal S2, No murmurs Abdomen: Bowel Sounds Present, Soft, Non Tender, Non-Distended Extremities: No edema, Capillary Refill Less than 3 Seconds Skin: No rashes, No breakdown Musculoskeletal: No Tenderness to Palpation of Joints or Extremities, Arthritic Changes Neurological: Cranial nerves II-XII grossly intact Psych/Mental Status: Normal Affect, Appropriate Microbiology Past 72 Hours 07/05/18 08:10 Urine, Clean Catch Urine Culture - Preliminary GNR Poss Pseudomonas sp Laboratory Results 07/05/18 08:25: Diff Path Review Reviewed 07/06/18 05:30: WBC 2.5 L, RBC 3.44 L, Hgb 9.9 L, Hct 30.9 L, MCV 89.8, MCH 28.8, MCHC 32.0, RDW 14.0, RDW Differential 45.9 H, Plt Count 124 L, MPV 9.9, Immature Gran % (Auto) 1.600 H, Neut % (Auto) 50.3, Lymph % (Auto) 25.7, [place] % (Auto) 20.8 H, Eos % (Auto) 1.2, Baso % (Auto) 0.4, Absolute Neuts (auto) 1.2 L, Absolute Lymphs (auto) 0.63 L, Total Counted Not Reportable, Differential Comment SCANNED, Diff Path Review July foll, Platelet Estimate SLT 07/06/18 05:30: Sodium 145, Potassium 3.3 L, Chloride 112 H, Carbon Dioxide 26.0, Anion Gap 7, BUN 21 H, Creatinine 0.90, Estim Creat Clear Calc 71.36, Est GFR (MDRD) Af Amer 106, Est GFR (MDRD) Non-Af 88, BUN/Creatinine Ratio 23.2 H, Glucose 83, Calcium 7.7 L Current Medications Acetaminophen (Tylenol) 650 mg PO Q6H PRN PRN PRN Reason: Mild Pain (1-3)/Temp > 100.7 F Last Admin: 07/06/18 05:57 Dose: 650 mg Dextrose (D50w Syringe) 0 gm IV X1 PRN; Protocol PRN Reason: Hypoglycemia Enoxaparin Sodium (Lovenox) 40 mg SC DAILY@1000 JASON Last Admin: 07/06/18 09:27 Dose: 40 mg Glucagon () 1 mg IM .X1 PRN PRN Reason: Hypoglycemia Sodium Chloride () 1,000 mls @ 150 mls/hr IV .Q6H40M [facility] Last Admin: 07/06/18 12:13 Dose: 150 mls/hr Piperacillin Sod/Tazobactam (Sod 3.375 gm/ Sodium Chloride) 50 mls @ 12.5 mls/hr IV Q8 [facility] Last Admin: 07/06/18 05:30 Dose: 12.5 mls/hr Ibuprofen (Motrin) 400 mg PO Q6H PRN PRN PRN Reason: headache/pain Ipratropium Prom[place] (Atrovent) 0.5 mg INHALATION Q6HWA.RT [facility] Last Admin: 07/06/18 06:49 Dose: 0.5 mg Nutritional Formula (Lactose Free) (Ensure Enlive) 120 ml PO 4X/DAY [facility] Ondansetron HCl (Zofran) 8 mg PO Q8H PRN PRN PRN Reason: NAUSEA Ondansetron HCl (Zofran) 4 mg IV Q8H PRN PRN PRN Reason: NAUSEA/VOMITING Sodium Chloride () 5 - 15 ml IV UD PRN PRN Reason: SALINE FLUSH Last Admin: 07/06/18 05:32 Dose: 10 ml Medical Necessity - Tobacco Use Smoking Status: Former smoker Assessment/Plan All Active Problems (Last Updated 06/26/18 @ 08:37 by Beverly Clemons) Chest pain (Acute) Encounter for education (Acute) Urinary tract infection (Acute) Neutropenic sepsis (Acute) Neutropenia, febrile (Acute) Pancytopenia due to antineoplastic chemotherapy (Acute) There is a 73-year-old with history of bladder cancer with history of bladder cancer, diagnosed in March 2018 secondary to gross hematuria and CT scan, cystoscopy and biopsy in May 2018, on first chemo cycle on 06/26/2018 and had Neulasta after 4 days was admitted with 100.4 Fahrenheit at home and hypotension, systolic blood pressure 80s-90s consistent with febrile neutropenia secondary to UTI. 1. Febrile neutropenia due to UTI: Patient was resected with IV fluid and blood pressure recovered. Currently 111/61. No hypoxia or tachypnea. No tachycardia. * Admit to PCU stepdown unit in light of febrile neutropenia. * Blood cultures and urine cultures obtained. UA showed 4+ bacteria with wbc of 25-50. Preliminary urine culture shows gram-negative rods more than 100,000 colonies. * Q. IV zosyn. * hydrate with IVF NS ~100 mL/h * neutropenic and chemotherapy precautions 2. Severe sepsis most probably secondary to UTI. Patient had hypotension recovered with IV fluid. Lactic acid was normal. * SIRS criteria on admission was 2/4 (neutropenia, tachycardia with HR of 115) * BP was in 80s and 90s systolic * resuscitate per sepsis protocol wtih IVF NS ~ 30cc/hr over first 4 hours, * Maintain normal saline at 100 mils per hour. 3. Bladder cancer with metastasis to pelvic nodes and liver: Status post bladder tumor resection and biopsy in May 2018. 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 He underwent another CT scan on 05/30/2018 which showed bladder mass with multiple liver lesions and iliac right external iliac nodes consistent with metastatic adenopathy. Patient seen by oncologist and consult reviewed. 4.COPD: on tiotropium. give breathing treatments Mild anemia and thrombocytopenia secondary to chemotherapy. DVT prophylaxis: lovenox Code status: Full code * Patient counseled extensively about different types of CODE STATUS including full code, DNR CCA and DNR CCA. Patient elects to be full code. * Total [id number] time 16 minutes. Code Visit Inpatient E&M: 24139 Subs Hosp L3
--- NOTE | 2018-07-06 12:53 | CON.PCM_ITS ---
Subjective Date of Service:: 07/06/18 Chief Complaint: Febrile neutropenia History of Present Illness: Mr. Arnoldo Brown is a very pleasant 73 year old man with a PMH for hypertension who presented with gross hematuria in March 2018. CT scan revealed a bladder mass. He initially went to the [facility], CT urogram on 04/04/2018 confirmed 4 cm mass involving the right side of the bladder. 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 He underwent another CT scan on 05/30/2018 which showed bladder mass with multiple liver lesions and iliac right external iliac nodes consistent with metastatic adenopathy. Transferred care to [facility] and commenced with cycle 1 carboplatin/etoposide on 06/26/18 and supported with Neulasta on day 4. He experienced chills and fever (highest temp at home 100.6) on 07/05/18. As a result he presented to [facility] ED, UA suggested UTI and he was subsequently admitted for management. Urine and blood cultures obtained. Broad spectrum atb initiated. Today is day 11 of his 21 day cycle. Upon entering the room, patient sitting upright in bed eating lunch. Denies experiencing chills/feeling clammy since admission. Further denies dysuria, hematuria, urinary frequency and back pain. Describes appetite as good-fair, nausea well controlled with Zofran. Has not resulted in any emesis. Past Medical History: Chronic Problems (Last Updated 06/26/18 @ 08:37 by Beverly Clemons) Hypertension (Chronic) Bladder cancer (Chronic) Malignant small cell cancer (Chronic) Past Medical/Surgical History: Past Medical History - Most Recent Inpatient Visit Past Medical History Start: 07/05/18 12:47 Text: Status: Complete Freq: ONCE Protocol: Document 07/05/18 12:50 EY (Rec: 07/05/18 12:53 EY [id number]) BMI Required to complete PMH What is Patient's BMI 19.8 Past Medical History Unable History Recalled No Query Text:Pt Unable/Family Not Present Neurologic Medical History Hx Stroke/TIA No Hx Dementia/Alzheimer's No Hx Parkinson's Disease No Hx Seizures No Hx Multiple Sclerosis No Hx Migraines No Cardiac Medical History VTE Present on Admission No Hx of Deep Vein Thrombosis/VTE/PE No Hx Hypertension Yes: on meds Hx Chest Pain/Angina No Hx Heart Attack No Hx Cardiac Surgery/Stents/Etc. No Hx Heart Failure No Hx Pacemaker/AICD No Hx Irregular Heartbeat and/or Afib No Hx Anticoagulant Therapy No Query Text:(Coumadin, Aspirin, Plavix, Xarelto, etc.) Hx Pain in Legs when Walking/Leg Cramps No Respiratory Medical History Hx COPD Yes Hx Emphysema No Hx Smoking Yes Smoking Status Former smoker Hx Smoking Cessation Date 1984 Hx Tobacco Use in last 12 months No Hx of Pipe Smoking No Hx Sleep Apnea No Do you snore loudly (louder than talking No or can be heard through closed doors)? Do you often feel tired/ fatigued/ No sleepy during daytime? Has anyone observed you stop breathing No during sleep? STOP Results Negative GI Medical History Hx Ulcer No Hx Hepatitis No Hx Cirrhosis No Hx GI Bleed No Hx Unplanned Weight Loss No Genitourinary Medical History Indwelling Catheter in Place on Arrival/ No Admission Hx Renal Disease No Hx Dialysis No Musculoskeletal History Hx Arthritis No Hx Rheumatoid Arthritis No Endocrine Medical History Hx Diabetes No Hx Thyroid Disease No Hematologic Medical History Hx of Blood Transfusion No Hx of Transfusion in last 3 Months No Ever experience any problems with No transfusion(s)? Hx of Preganancy in last 3 Months N/A Nurse Filling Out Transfusion & EYOUNG Questions: Date: 07/05/18 Time: 12:52 Psycho/Social Medical History Hx Depression No Hx Anxiety No Hx Behavior Disorder No Hx Alcohol Use Yes: social Hx Substance Use No Other Medical History Hx Blood Disorders No Hx Anemia No Hx Cancer Yes: bladder ca Hx Drug Resistant Organism No Wound/Pressure Injury Present on Arrival No /Admission Query Text:If yes, chart assessment in Shift/Clinical Findings Central Line/PICC/VAD Present on Arrival No /Admission Antibiotics within last 7 days? No Methicillin Resistant Staphylococcus aureus Screening Active MRSA No Risk for Readmission Number of Risk Factors 3 At Risk for Readmission Patient is At Risk For Readmission Patient is eligible for Call Back Y Past Medical History (Last Updated 06/26/18 @ 08:37 by Beverly Clemons) Bilateral tinnitus (Acute) Diverticulitis (Acute) Hypokalemia (Acute) bladder tumor resection (Acute) port placement (Acute) COPD (chronic obstructive pulmonary disease) (Chronic) COPD (chronic obstructive pulmonary disease) (Chronic) Past Surgical History (Last Reviewed 06/26/18 @ 08:36 by Beverly Clemons) History of cystoscopy (Acute) Maternal Family History: Family History (Last Reviewed 06/26/18 @ 08:36 by Beverly Clemons) Mother Breast cancer Father CVA (cerebral vascular accident) Hypertension Sister Hypertension Brother Hypertension Family History: Cancer, Dementia - alive age 92 Paternal Family History: Family History (Last Reviewed 06/26/18 @ 08:36 by Beverly Clemons) Mother Breast cancer Father CVA (cerebral vascular accident) Hypertension Sister Hypertension Brother Hypertension Family History: Heart Disease - age 79 - Social History Lives: Spouse/ Significant Other Smoking Status: Former smoker Alcohol: None - hasnt drank since March 2018. Drugs: None Allergies/Adverse Reactions: Allergy/AdvReac Type Severity Reaction Status Date / Time No Known Allergies Allergy Verified 07/05/18 07:22 Review of Systems Constitutional:: Reports: Fatigue. Denies: Fever, Sweats, Weight loss, Appetite change, Chills Cardiovascular:: Denies: Chest pain, Palpitations, Dyspnea on exertion, Orthopnea, PND, Shortness of breath Respiratory: Denies: Cough, Hemoptysis, Shortness of Breath, Wheezing Gastrointestinal:: Reports: Nausea. Denies: Abdominal pain, Vomiting, Diarrhea, Constipation, Melena, Hematochezia Genitourinary: Denies: Dysuria, Hematuria, Nocturia, Flank pain Musculoskeletal:: Denies: Back pain, Myalgia, Arthralgia Skin: Denies: Rash, Skin Changes, Wounds Neurological:: Reports: Numbness, Tingling - left ankle, chronic unchanged. Denies: Headache, Dizziness, Visual changes, Tinnitus, Hearing loss Psychiatric: Denies: Anxiety, Depression, Homicidal Ideations, Suicidal Ideations Vital Signs Height 6 ft 1 in Weight: 149 lb 14.629 oz Weight in Pounds 149.9 lbs Pulse Ox 97 Temperature 98.5 F Pulse Rate 90 Respiratory Rate 14 Blood Pressure [2nd BP] 127/65 Blood Pressure 107/63 Blood Pressure Position [2nd Semi-Fowlers BP] Blood Pressure Position Sitting - Physical Exam General: Alert, Oriented x3, No apparent distress HEENT: Atraumatic, PERRLA, EOMI, Normocephalic Oropharynx:: Negative for: Dry mucosa, Ulcerated lesions Neck:: Supple, Trachea midline. Negative for: JVD, bilateral Cardiac:: Regular rate, Regular rhythm, Normal S1, Normal S2. Negative for: Murmur Lungs: Clear to auscultation, Excusion symmetrical. Negative for: Rhonchi, Wheezes Abdomen:: Bowel sounds x 4, Soft, Non-tender, Non-distended, - - minute area of ecchymosis r/t Lovenox administration. Negative for: Hepatosplenomegaly Extremities:: Negative for: Cyanosis, Edema Neurological: Neuro grossly intact Skin:: Negative for: Lesions, Rash, Petechiae, Ecchymosis Psychiatric:: Appropriate affect, Euthymic Lymphatics:: Negative for: Cervical lymphadenopathy, Supraclavicular lymphadenopathy, Axillary lymphadenopathy Laboratory Data: Microbiology 07/05/18 08:10 Urine Culture - Preliminary Urine, Clean Catch GNR Poss Pseudomonas sp Laboratory Tests 07/06/18 07/06/18 07/05/18 Range/Units 05:30 05:30 08:25 WBC 2.5 L (4.4-11.0) K/mm3 RBC 3.44 L (4.6-6.2) M/mm3 Hgb 9.9 L (13.0-16.5) g/dl Hct 30.9 L (40-54) % MCV 89.8 (80-94) fL MCH 28.8 (27.0-32.0) pg MCHC 32.0 (32-36) g/gl RDW 14.0 (11.6-14.6) % RDW Differential 45.9 H (35.1-43.9) fl Plt Count 124 L (150-450) K/mm3 MPV 9.9 (6.2-12.0) fl Immature Gran % (Auto) 1.600 H (0.0-0.9) % Neut % (Auto) 50.3 (47-70) % Lymph % (Auto) 25.7 (19-41) % [place] % (Auto) 20.8 H (0-10) % Eos % (Auto) 1.2 (0-5) % Baso % (Auto) 0.4 (0-1) % Absolute Neuts (auto) 1.2 L (2.0-7.7) X10^3/uL Absolute Lymphs (auto) 0.63 L (0.83-4.51) X10^3/ul Total Counted Not Reportable Differential Comment SCANNED Diff Path Review May foll Reviewed Platelet Estimate SLT DEC (ADEQ) Sodium 145 (136-145) mmol/L Potassium 3.3 L (3.5-5.1) mmol/L Chloride 112 H (98-107) mmol/L Carbon Dioxide 26.0 (21.0-32.0) mmol/L Anion Gap 7 (5-15) BUN 21 H (7-18) mg/dL Creatinine 0.90 (0.70-1.30) mg/dL Estim Creat Clear Calc 71.36 ml/min Est GFR (MDRD) Af Amer 106 (>60) mL/min Est GFR (MDRD) Non-Af 88 (>60) mL/min BUN/Creatinine Ratio 23.2 H (10-20) RATIO Glucose 83 (74-106) mg/dL Calcium 7.7 L (8.5-10.1) mg/dL Diagnostic Data: Diagnostic Data Chest X-Ray 07/05/18 07:36 IMPRESSION: Hyperinflation and COPD. The lungs are clear. Electronically Signed: Evans Ramses, at 10:15 EDT , Service support , Assessment and Plan 1. Febrile Neutropenia- Urine identified as source of infection. Preliminary urine culture + for possible pseudomonas, blood cultures still pending. Managed with IV Zosynn at the present time. Afebrile. Patient was supported with long acting G CSF (Neulasta on 06/29/18). ANC today 1.2. However, unsure if inflated d/t administration of short acting G CSF (Granix) yesterday. Using ASCO Clinical Index of Stable Febrile Neutropenia tool, patient score is 0 indicating out patient management can be considered. Criteria for discharge on PO atb, to remain afebrile and ANC >1, once cultures are final. 2. 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 Aside from bone marrow suppression, patient has tolerated well. Cycle 2 due 07/17/18. 3. Pancytopenia- Today is day 11 of the 21 day chemotherapy cycle. Carboplatin tends to MANAS later in the cycle. It is not unlikely Hgb and platelets will continue to decline before improvement is noted. Only hold Lovenox for platelets < 50,000 in the absence of overt bleeding. Upon discharge, patient to follow up with me at [facility] on 07/10[facility]18 for a scheduled toxicity assessment. Yasmine Cerda, ALGOLOGIST-BULLDOZER/LOADER/COMPACTOR/SCRAPER, AOCNP Medications: Prescriptions This Visit Medication Instructions Recorded Chlorthalidone 12.5 mg PO DAILY 07/05/18 Ensure Enlive 240 ml PO BID 07/05/18 Tiotropium [place] [Spiriva] 18 mcg IH DAILY 07/05/18 Medications Added to Medication List This Visit Category Date Time Status Enoxaparin [Lovenox] Med 07/06/18 10:00 Active 40 mg SC DAILY@1000 Ensure Enlive Med 07/06/18 14:00 Active 120 ml PO 4X/DAY Ibuprofen [Motrin] Med 07/06/18 05:44 Active 400 mg PO Q6H PRN PRN Primary Care Provider: [facility] Referring Provider: - Problem List (1) Malignant small cell cancer Status: Chronic (2) Neutropenia, febrile Status: Acute (3) Pancytopenia due to antineoplastic chemotherapy Status: Acute
--- NOTE | 2018-07-06 18:33 | NURSING ---
IV fluids decreased to 100ml/hr at this time, per physicians orders.
[2018-07-06] MEDS: 0.9% Normal Saline 1,000 ML 100 ML IV (21:22)
[2018-07-07] MEDS: Acetaminophen 325 MG Tablet 650 MG PO ×2 (00:19→08:24)
[2018-07-07 03:00] VITALS: BP 118/63; PULSE 72; PULSE 82; RESP 18; TEMP 36.6; O2SAT 94
[2018-07-07] MEDS: 0.9% NaCl Peripheral Flush Adult/Peds IV ×3 (05:33→05:40)
[2018-07-07] MEDS: 0.9% Normal Saline 1,000 ML 100 ML IV (05:37)
[2018-07-07 06:21] VITALS: PULSE 67
[2018-07-07 06:24] LABS: Anion Gap 6 (5-15); BUN 14 mg/dL (7-18); BUN/Creat Ratio 16.2 RATIO (10-20); Calcium,Total 7.8 mg/dL (8.5-10.1); Chloride 109 mmol/L (98-107); Creatinine, Serum 0.86 mg/dL (0.70-1.30); EST Glomerular Filtration Rate 92 mL/min (>60); Est Glom Filt Rate - Afr Amer 112 mL/min (>60); Estimated Creatinine Clearance 74.68 ml/min; Glucose 85 mg/dL (74-106); Potassium 3.1 mmol/L (3.5-5.1); Sodium Level 142 mmol/L (136-145)
[2018-07-07 06:52] LABS: Hematocrit 28.7 % (40-54); Hemoglobin 9.2 g/dl (13.0-16.5); Mean Corp Hgb Conc 32.1 g/gl (32-36); Mean Corpuscular Hgb 28.7 pg (27.0-32.0); Mean Corpuscular Volume 89.4 fL (80-94); Mean Platelet Vol. 10.4 fl (6.2-12.0); Platelet Count 122 K/mm3 (150-450); RBC Distribution Width CV 14.1 % (11.6-14.6); RBC Distribution Width SD 46.3 fl (35.1-43.9); Red Blood Count 3.21 M/mm3 (4.6-6.2); White Blood Count 7.6 K/mm3 (4.4-11.0)
[2018-07-07 06:55] LABS: POSITIVE COUNT NO; POSITIVE DIFFERENTIAL NO; POSITIVE MORPHOLOGY YES
[2018-07-07 06:56] LABS: Differential Indicated MANUAL DIFF
[2018-07-07 07:03] VITALS: O2SAT 94
[2018-07-07 07:47] LABS: Eosinophil 1 % (0-5); Lymphocyte 8 % (19-41); Metamyelocyte 2 % (0-1); Monocyte 7 % (0-10); Neutrophil-Band 31 % (0-5); Neutrophil-Segmented 51 % (47-70); Total Cells Counted 100 (MANUAL DIFF)
[2018-07-07 07:48] LABS: Anisocytosis 1+
[2018-07-07 07:49] LABS: Platelet Estimate MOD DEC (ADEQ)
[2018-07-07 07:57] LABS: Absolute Neutrophil Count 6.2 X10^3/uL (2.0-7.7)
[2018-07-07 08:30] VITALS: BP 116/61; PULSE 74; RESP 16; TEMP 36.6; O2SAT 96
[2018-07-07 08:33] VITALS: O2SAT 94
--- NOTE | 2018-07-07 10:30 | PCM.DC ---
- Discharge Diagnoses Current Active Problems: Current Active and Chronic Problems (Last Updated 06/26/18 @ 08:37 by Beverly Clemons) Urinary tract infection (Acute) Neutropenic sepsis (Acute) Neutropenia, febrile (Acute) Pancytopenia due to antineoplastic chemotherapy (Acute) You will use the following diet at home:: Cardiac Discharge Activity: Return to Normal Activity, May Not Drive - for 2-3 days Weight Bearing Status: Weight bearing as tolerated Call your doctor if you observe: Fever of 101 or Higher, Inability to urinate, Inability to have a bowel movement, Shortness of breath, Dizziness, Fainting spells, Swelling in the ankles, Chest pain, Increased palpitations (irregular heartbeat) Additional Instructions: F/U with and advised BMP for continued hypokalemia in 1-2 weeks with PCP Allergies/Adverse Reactions: Allergies No Known Allergies Allergy (Verified 07/05/18 07:22) Medications to take at Discharge Ondansetron [Zofran] 8 mg PO Q8H PRN PRN 30 Days #30 tab 06/12/18 Chlorthalidone 12.5 mg PO DAILY 07/05/18 Ensure Enlive 240 ml PO BID 07/05/18 Tiotropium [place] [Spiriva] 18 mcg IH DAILY 07/05/18 Ciprofloxacin [Cipro] 500 mg PO BID #10 tablet 07/07/18 Potassium Chloride [K-Dur] 40 meq PO DAILY #3 tablet 07/07/18 The following prescriptions were given: Potassium Chloride [K-Dur] 40 meq PO DAILY #3 tablet Ciprofloxacin [Cipro] 500 mg PO BID #10 tablet Primary Care Physician: [facility] [Primary Care Provider] - Please follow up with your Primary Care Physician in: in 1-2 weeks Test Results: Test results from this visit will be discussed in further detail at your follow-up appointment, if applicable. Please Follow Up With: Brian French MD When: in 2-3 weeks
[2018-07-07 10:55] VITALS: PULSE 77
--- NOTE | 2018-07-07 11:14 | DS.PCM_ITS ---
Discharge Date and Diagnosis Date of Admission: 07/05/18 Date of Discharge: 07/07/18 - Primary Discharge Diagnosis Active and Suspected Problems (Last Updated 06/26/18 @ 08:37 by Beverly Clemons) Urinary tract infection (Acute) Neutropenic sepsis (Acute) Neutropenia, febrile (Acute) Pancytopenia due to antineoplastic chemotherapy (Acute) Acute Pseudomonas aeruginosa UTI/cystitis - Secondary Discharge Diagnosis Chronic Problems (Last Updated 06/26/18 @ 08:37 by Beverly Clemons) Hypertension (Chronic) Bladder cancer (Chronic) Malignant small cell cancer (Chronic) Hospital Course and Treatment Operations: None Summary of Care Provided: This is a 73-year-old with history of bladder cancer with history of bladder cancer, diagnosed in March 2018 secondary to gross hematuria and CT scan, cystoscopy and biopsy in May 2018, on first chemo cycle on 06/26/2018 and had Neulasta after 4 days was admitted with 100.4 Fahrenheit at home and hypotension, systolic blood pressure 80s-90s consistent with febrile neutropenia secondary to UTI. 1. Febrile neutropenia due to UTI: Patient was resected with IV fluid and blood pressure recovered. Currently 111/61. No hypoxia or tachypnea. No tachycardia. * The patient was admitted to PCU stepdown unit in light of febrile neutropenia. * Blood cultures and urine cultures obtained. UA showed 4+ bacteria with wbc of 25-50. Urine culture shows pseudomonas aeruginosa more than 100,000 colonies sensitive to Zosyn and Cipro. * Patient was initially treated with IV Zosyn and then transitioned to Cipro today * hydrate with IVF NS ~100 mL/h * neutropenic and chemotherapy precautions * Patient is discharged on Cipro 500 mg twice daily to complete a total of 7 days of antibiotics. 2. Severe sepsis most probably secondary to Pseudomonas aeruginosa cystitis/UTI. Patient had hypotension recovered with IV fluid. Lactic acid was normal. * SIRS criteria on admission was 2/4 (neutropenia, tachycardia with HR of 115) * BP was in 80s and 90s systolic in the beginning but later on recovered with IV fluid * IV fluid discontinued today 3. Bladder cancer with metastasis to pelvic nodes and liver: Status post bladder tumor resection and biopsy in May 2018. 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 He underwent another CT scan on 05/30/2018 which showed bladder mass with multiple liver lesions and iliac right external iliac nodes consistent with metastatic adenopathy. Patient seen by oncologist and consult reviewed. Mild hypokalemia: Chronic. Patient had hypokalemia since December 2017. K3.1 even on daily replacement. 2 doses of KCl 40 M EQ given. A prescription for KCl for 3 more days given. Patient was advised to follow-up with PCP to repeat BMP in 1 week to follow-up on hypokalemia. 4.COPD: on tiotropium. give breathing treatments Mild anemia and thrombocytopenia secondary to chemotherapy. DVT prophylaxis: lovenox Discharge medication reconciliation done. Discharge follow-up instructions completed. Discharge process discussed with the patient and his near the bedside and all questions were answered to patient's satisfaction. Patient was given a prescription for Cipro 500 mg twice daily for 5 more days to complete a total of 7 days of antibiotics. Follow-up oncology, Dr. French and patient has appointment on next Sunday. Total time spent, exact 35 minutes on discharge meds reconciliation, examination, review of imaging and blood test and discussion with the patient on follow-up instructions. Microbiology Past 72 Hours 07/05/18 08:50 Blood Culture (Wb) - Anticubital Left Blood Culture - Preliminary No growth in 48 hours. 07/05/18 08:25 Blood Culture (Wb) - Central Line Blood Culture - Preliminary No growth in 48 hours. 07/05/18 08:10 Urine, Clean Catch Urine Culture - Final Pseudomonas aeroginosa - Physical Exam Vital Signs Temp Pulse Resp BP Pulse Ox 98 F 77 16 116/61 94 07/07/18 08:30 07/07/18 10:55 07/07/18 08:30 07/07/18 08:30 07/07/18 08:33 Oxygen Delivery Method Room Air Weight: 149 lb 14.629 oz Body Mass Index (BMI) 19.8 Intake and Output for Last 24 Hours 07/05/18 07/06/18 07/07/18 23:59 23:59 23:59 Intake Total 1958 4445.4 / 4445.4 1302.6 / 1302.6 Balance 1958 4445.4 / 4445.4 1302.6 / 1302.6 Microbiology Past 72 Hours 07/05/18 08:10 Urine Culture - Final Urine, Clean Catch Pseudomonas aeroginosa Laboratory Tests Past 24 Hrs 07/07/18 07/07/18 05:30 05:30 WBC 7.6 RBC 3.21 L Hgb 9.2 L Hct 28.7 L MCV 89.4 MCH 28.7 MCHC 32.1 RDW 14.1 RDW Differential 46.3 H Plt Count 122 L MPV 10.4 Neut % (Auto) Not Reportable Absolute Neuts (auto) 6.2 Absolute Lymphs (auto) 0.60 L Total Counted 100 Neutrophils % (Manual) 51 Band Neutrophils % 31 H Lymphocytes % (Manual) 8 L Monocytes % (Manual) 7 Eosinophils % (Manual) 1 Metamyelocytes % 2 H Platelet Estimate MOD DEC Anisocytosis 1+ Sodium 142 Potassium 3.1 L Chloride 109 H Carbon Dioxide 27.0 Anion Gap 6 BUN 14 Creatinine 0.86 Estim Creat Clear Calc 74.68 Est GFR (MDRD) Af Amer 112 Est GFR (MDRD) Non-Af 92 BUN/Creatinine Ratio 16.2 Glucose 85 Calcium 7.8 L Discharge Activity: Return to Normal Activity, May Not Drive - for 2-3 days Weight Bearing Status: Weight bearing as tolerated Call your doctor if you observe: Fever of 101 or Higher, Inability to urinate, Inability to have a bowel movement, Shortness of breath, Dizziness, Fainting spells, Swelling in the ankles, Chest pain, Increased palpitations (irregular heartbeat) Home Medications: Medications to take at Discharge Ondansetron [Zofran] 8 mg PO Q8H PRN PRN 30 Days #30 tab 06/12/18 Chlorthalidone 12.5 mg PO DAILY 07/05/18 Ensure Enlive 240 ml PO BID 07/05/18 Tiotropium [place] [Spiriva] 18 mcg IH DAILY 07/05/18 Ciprofloxacin [Cipro] 500 mg PO BID #10 tablet 07/07/18 Potassium Chloride [K-Dur] 40 meq PO DAILY #3 tablet 07/07/18 Following Prescrptions Were Given to Patient: Potassium Chloride [K-Dur] 40 meq PO DAILY #3 tablet Ciprofloxacin [Cipro] 500 mg PO BID #10 tablet [facility] [Primary Care Provider] - Please follow up with your Primary Care Physician in: in 1-2 weeks Please Follow Up With: Brian French MD When: in 2-3 weeks Medical Necessity - Tobacco Use Smoking Status: Former smoker Meaningful Use Info Meaningful Use Diagnoses (Choose all that apply): None applicable Code Visit Inpatient E&M: 37424 Disch Hosp
--- NOTE | 2018-07-07 11:14 | DCINST_ITS ---
- Discharge Diagnoses Current Active Problems: Current Active and Chronic Problems (Last Updated 06/26/18 @ 08:37 by Beverly Clemons) Urinary tract infection (Acute) Neutropenic sepsis (Acute) Neutropenia, febrile (Acute) Pancytopenia due to antineoplastic chemotherapy (Acute) You will use the following diet at home:: Cardiac Discharge Activity: Return to Normal Activity, May Not Drive - for 2-3 days Weight Bearing Status: Weight bearing as tolerated Call your doctor if you observe: Fever of 101 or Higher, Inability to urinate, Inability to have a bowel movement, Shortness of breath, Dizziness, Fainting spells, Swelling in the ankles, Chest pain, Increased palpitations (irregular heartbeat) Additional Instructions: F/U with [facility] and advised BMP for continued hypokalemia in 1-2 weeks with PCP Allergies/Adverse Reactions: Allergies No Known Allergies Allergy (Verified 07/05/18 07:22) Medications to take at Discharge Ondansetron [Zofran] 8 mg PO Q8H PRN PRN 30 Days #30 tab 06/12/18 Chlorthalidone 12.5 mg PO DAILY 07/05/18 Ensure Enlive 240 ml PO BID 07/05/18 Tiotropium [place] [Spiriva] 18 mcg IH DAILY 07/05/18 Ciprofloxacin [Cipro] 500 mg PO BID #10 tablet 07/07/18 Potassium Chloride [K-Dur] 40 meq PO DAILY #3 tablet 07/07/18 The following prescriptions were given: Potassium Chloride [K-Dur] 40 meq PO DAILY #3 tablet Ciprofloxacin [Cipro] 500 mg PO BID #10 tablet Primary Care Physician: [facility] [Primary Care Provider] - Please follow up with your Primary Care Physician in: in 1-2 weeks Test Results: Test results from this visit will be discussed in further detail at your follow- up appointment, if applicable. Please Follow Up With: Brian French MD When: in 2-3 weeks
[2018-07-07] MEDS: Ciprofloxacin 500 MG Tablet PO (12:16)
--- NOTE | 2018-07-08 13:32 | CASEMGMT ---
RN CM DC PHONE CALL DC DATE: 07/07/18 DC Disposition: Home LACE/STRATA: 03/05 Intro role of CM to patient via phone. Pt states he is feeling improved, no questions re: instructions, prescriptions or f/u. No care improvement suggestions given. Latasha BLANKN RN AC
[2018-07-09 12:18] LABS: Pathologist Review Reviewed
== END 2018-07-07 13:10 | disposition home or self-care (01) | DRG 871 ==
LOC: ED 11:18 → PCU 11:42
PROVIDERS: Admitting Provider Student in an Organized Health Care Education/Training Program; Emergency Provider Emergency Medicine; Visit Provider Internal Medicine
DX: A41.52 Sepsis due to Pseudomonas (principal); R65.21 Severe sepsis with septic shock; D61.810 Antineoplastic chemotherapy induced pancytopenia; N30.00 Acute cystitis without hematuria; C78.7 Secondary malignant neoplasm of liver and intrahepatic bile duct; C77.5 Secondary and unspecified malignant neoplasm of intrapelvic lymph nodes; D70.3 Neutropenia due to infection; R50.81 Fever presenting with conditions classified elsewhere; C67.9 Malignant neoplasm of bladder, unspecified; T45.1X5A Adverse effect of antineoplastic and immunosuppressive drugs, initial encounter; E87.6 Hypokalemia; D69.59 Other secondary thrombocytopenia; J44.9 Chronic obstructive pulmonary disease, unspecified; Z87.891 Personal history of nicotine dependence
CPT/HCPCS: 36591; 71046; 80048; 80053; 81001; 83605; 85025; 87040; 87077; 87086; 87088; 87184; 87186; 94640; 97802; 99283; J7030; J7040; A4216; J1447

== ENCOUNTER → 2018-07-30 07:43 | Outpatient (CLI) | payer MEDICARE, OTHER, SELFPAY ==
[2018-07-17 08:33] VITALS: BMI 19.6
[2018-07-19 08:30] VITALS: BMI 19.6
--- NOTE | 2018-07-30 07:50 | CT_ITS ---
STUDY: CT CHEST WITH CONTRAST REASON FOR EXAM: Male, 73 years old. History of bladder cancer RADIATION DOSAGE (If Supplied By Facility): CTDIvol = ( 10.20 ) mGy, DLP = ( 1292.25 ) mGycm TECHNIQUE: Transaxial imaging was performed following intravenous administration of 100ml IV Isovue 300. Multiplanar coronal and sagittal images were reformatted. Individualized dose optimization techniques were used for this CT. COMPARISON: 19/11/2018 lung bases FINDINGS: There is biapical thickening. There is punctate calcification within the right apex. Within the right lower lobe there is a well-circumscribed 2 to 3 mm nodule stable since prior study. Within the left lower lobe and a area of scarring there is a small focus of well-circumscribed nodular density measuring 5 mm stable since prior studies. There is a calcified granuloma in the right lower lobe sitting at the pleura measuring 3.3 mm. A few scattered areas of what appears to be air trapping or lucency minimal emphysematous change. There is no demonstrated pleural abnormality. Normal heart and pericardium. There is an AP window lymph node measuring 9.4 mm. There is an AP window lymph node measuring 1.1 cm. Normal hilar regions. Normal enhanced pulmonary arteries. Normal aorta arch and descending thoracic aorta. There are mild multi-level degenerative changes of the thoracic spine. The abdominal anatomy will be discussed on a dedicated CT scan of the abdomen and pelvis performed the same day. CT/Chest WITH Contrast IMPRESSION: Stable 5 mm left lower lobe nodule and an area of appears to be scarring. Stable 2 to 3 mm right lower lobe nodule. Recommend continued follow-up as clinically appropriate or in 6 months to ensure stability. Nonspecific mediastinal lymph nodes. Evidence of old granulomatous disease. Electronically Signed: Billie Jacques MD at 15:58 EDT Tel , Service support ,
--- NOTE | 2018-07-30 07:50 | CT_ITS ---
STUDY: CT ABDOMEN AND PELVIS WITH CONTRAST REASON FOR EXAM: Male, 73 years old. Bladder cancer history of chemotherapy RADIATION DOSAGE (If Supplied By Facility): CTDIvol = ( 10.20 ) mGy, DLP = ( 1292.25 ) mGycm TECHNIQUE: Transaxial images were obtained from the dome of the diaphragm to the symphysis pubis with oral contrast. 100ml IV/Oral Isovue 300 was administered. Sagittal and coronal images were reconstructed. Individualized dose optimization techniques were used for this CT. COMPARISON: April 04, 2018 CT scan abdomen and pelvis FINDINGS: There is a stable 5 mm nodule within the left lower lobe image #10. This is better visualized than on the prior study when it was seen in an area of greater atelectasis March 23, 2018. There is a 2 to 3 mm nodular density in the right lower lobe stable since prior studies. The visualized portions of the heart are within normal limits. Within the mid aspect of the liver. There is a 1.0 x 1.1 low attenuating focus that is not seen on the prior study April 04, 2018 which was a noncontrast study. This is not definitively identified on the contrasted study April 04, 2018. There are a few punctate calcifications within the liver and spleen. Normal gallbladder and extrahepatic biliary system. There are multiple benign calcified granulomata of the spleen. Normal pancreas. Normal bilateral adrenal glands. Normal right kidney. Normal left kidney. There is no evidence of hydronephrosis. There is a small hiatal hernia. Normal small intestine. There is mild to moderate stool in the colon. There is a decompressed appearance of the distal sigmoid. There is contrast within the distal small bowel and the colon. The appendix is visualized and appears normal. The aorta is partially calcified. Normal inferior vena cava. Normal retroperitoneum. When compared to the study April 04, 2018 and the focal masslike thickening that measured up to approximately 2.1 x 3.8 cm now measures 3.7 x 1.3 cm. There are 2 small peripheral nodular densities adjacent to the right side of the bladder are lesser in size and the more recent prior study May 30, 2018. One measures 1.3 cm and the other measures approximately 20 mm in AP diameter. Since prior study there is a new focus of fluid within the right side scrotum. There is a overall mildly thickened appearance of the anterior wall of the bladder. The prostate appears to be of normal size. There are hernia mesh-type dequan seen in the anterior aspect of the abdomen the level of the pelvis and symphysis pubis. There is mild spondylosis. CT/Abdomen/Pelvis WITH Contrast IMPRESSION: There is still a thickened appearance of the right side of the bladder and a rim of calcification. This is smaller in width and prior study still measuring 3.7 x 1.3 cm including the length of the wall thickening. There are 2 adjacent nodules which are also smaller than the prior study. Since prior study there is a newly visualized low attenuation within the right hepatic lobe bordering the right hepatic vein. Given interval development of a low attenuation within the liver in a setting of cancer this raises concern for the possibility of a small focus of hepatic metastasis. The differential would include the possibility of hemangioma however the prior study April 04, 2018 with a multiphase study which did not clearly indicate any mass within the liver. Consideration for follow-up study such as PET scan or consistent consideration for MRI of the liver. New small right focus of fluid within the right scrotum. Postoperative changes status post hernia mesh placement A limited visualized low-attenuation within the mid aspect of the right hepatic lobe There is a stable well-circumscribed 5 mm nodule in the left lower lobe and in the area of probable scarring suggesting sequelae of granulomatous disease rather than pulmonary nodule. Liver given the clinical history, Appropriate serial follow-up is warranted given the clinical history. There is a nonspecific 2 mm nodular density within the right lower lobe seen on prior studies. Electronically Signed: Billie Jacques MD at 15:40 EDT Tel , Service support ,
== END ==
PROVIDERS: Referring Provider Internal Medicine Medical Oncology; Visit Provider Internal Medicine Medical Oncology
DX: C67.9 Malignant neoplasm of bladder, unspecified (principal)
CPT/HCPCS: 71260; 74177; 80053; 85025; Q9967; A4216

== ENCOUNTER → 2018-09-09 07:10 | Outpatient (CLI) | payer MEDICARE, OTHER, SELFPAY ==
[2018-08-28 09:36] VITALS: BMI 20.6
[2018-08-30 09:12] VITALS: BMI 20.6
--- NOTE | 2018-09-09 07:14 | CT_ITS ---
STUDY: CT ABDOMEN AND PELVIS WITH CONTRAST REASON FOR EXAM: Male, 73 years old. History of bladder cancer with removal of bladder masses.. RADIATION DOSAGE (If Supplied By Facility): CTDIvol = ( 12.21 ) mGy, DLP = ( 1713.77 ) mGycm TECHNIQUE: Transaxial images were obtained from the dome of the diaphragm to the symphysis pubis without oral contrast. 100 IV/Oral Isovue 300 was administered. Sagittal and coronal images were reconstructed. Individualized dose optimization techniques were used for this CT. COMPARISON: Comparison is made with a prior examination dated July 30, 2018. FINDINGS: Stable 5 mm nodule in the left lower lobe as seen on axial image #15. The visualized portions of the heart are within normal limits. Stable appearance of the 1 cm x 1.1 cm low density in the central aspect of the right lobe of the liver. Normal gallbladder and extrahepatic biliary system. There are multiple benign calcified granulomata of the spleen. Normal pancreas. Normal bilateral adrenal glands. Normal right kidney. Normal left kidney. There is a retroaortic left renal vein. There is a small hiatal hernia. Normal small intestine. Normal colon. The appendix is visualized and appears normal. There is diffuse atherosclerotic calcification of the abdominal aorta, without a demonstrated aneurysm. Normal inferior vena cava. Normal retroperitoneum. The previously seen 2 small peripheral nodular density adjacent to the right side of the bladder wall have resolved. Linear density is seen at that site most likely representing suture material or calcification. I suspect a small bladder diverticulum along its superior anterior aspect on the left side. Surgical clips are also seen along the anterior aspect of the urinary bladder adjacent to the anterior abdominal wall. Stable appearance of fluid in the right brett-scrotum. Normal abdominal wall. Normal osseous structures. CT/Abdomen/Pelvis WITH Contrast IMPRESSION: Since prior study, there has been resection of the 2 small nodular densities along the right side of the bladder wall. The remainder of the examination is unchanged. Electronically Signed: Evans Pearce, at 10:21 EDT , Service support ,
--- NOTE | 2018-09-09 07:14 | CT_ITS ---
STUDY: CT CHEST WITH CONTRAST REASON FOR EXAM: Male, 73 years old. History of bladder cancer. Follow-up examination. RADIATION DOSAGE (If Supplied By Facility): CTDIvol = ( 12.21 ) mGy, DLP = ( 1713.77 ) mGycm TECHNIQUE: Transaxial imaging was performed following intravenous administration of 100 IV Isovue 300. Multiplanar coronal and sagittal images were reformatted. Individualized dose optimization techniques were used for this CT. COMPARISON: Comparison is made with prior examination dated July 30, 2018. FINDINGS: Stable small bilateral axillary lymph nodes. Calcified granuloma in the superior segment of the right lower lobe. Stable fibrocalcific scarring at the right lung apex. Mild scarring at the left lung apex. Stable 5 mm nodule in the left lower lobe as seen on axial image #124. There is no demonstrated pleural abnormality. Normal heart and pericardium. There are multiple small lymph nodes within the mediastinum, which are normal in size and morphology most compatible with reactive lymph hyperplasia. Normal hilar regions. Normal enhanced pulmonary arteries. Normal aorta arch and descending thoracic aorta. There are multi-level degenerative changes of the thoracic spine. Small hiatal hernia. CT/Chest WITH Contrast IMPRESSION: No acute abnormality is seen. Stable examination. Electronically Signed: Evans Pearce, at 13:00 EDT , Service support ,
== END ==
PROVIDERS: Referring Provider Internal Medicine Medical Oncology; Visit Provider Internal Medicine Medical Oncology
DX: C67.2 Malignant neoplasm of lateral wall of bladder (principal)
CPT/HCPCS: 71260; 74177; Q9967; A4216

== ENCOUNTER → 2018-10-21 06:42 | Outpatient (CLI) | payer MEDICARE, OTHER, SELFPAY ==
[2018-10-09 09:50] VITALS: BMI 21.0
[2018-10-11 08:15] VITALS: BMI 21.3
--- NOTE | 2018-10-21 06:48 | CT_ITS ---
STUDY: CT ABDOMEN AND PELVIS WITH CONTRAST REASON FOR EXAM: Male, 73 years old. History of bladder cancer, follow-up from previous study. RADIATION DOSAGE (If Supplied By Facility): CTDIvol = ( 11.05 ) mGy, DLP = ( 1826.62 ) mGycm TECHNIQUE: Transaxial images were obtained from the dome of the diaphragm to the symphysis pubis with oral contrast. 100mL IV/Oral Isovue 300 was administered. Sagittal and coronal images were reconstructed. Individualized dose optimization techniques were used for this CT. COMPARISON: 09/09/2018 FINDINGS: Lung bases again show the stable 5 mm nodule in the left lower lobe on axial image 59. The visualized portions of the heart are within normal limits. Stable appearance of a 1 x 1.1 cm low-density lesion in the central aspect of the right lobe of the liver. No change since the previous study. Normal gallbladder and extrahepatic biliary system. There are multiple benign calcified granulomata of the spleen. Normal pancreas. Normal bilateral adrenal glands. Normal right kidney. Normal left kidney. Again noted is a retroaortic left renal vein. There is a small hiatal hernia. Normal small intestine. There are multiple colonic diverticula consistent with diverticulosis. The appendix is visualized and appears normal. Appendix best seen on coronal recon image 43. There is diffuse atherosclerotic calcification of the abdominal aorta, without a demonstrated aneurysm. Normal inferior vena cava. Normal retroperitoneum. Bladder show some stable thickening with diverticula along the superior left side of the bladder. There has been previous prostatectomy. Normal abdominal wall. There are diffuse degenerative changes of the visualized lumbar spine, and pelvis. CT/Abdomen/Pelvis WITH Contrast IMPRESSION: No significant interval change since the previous study, no new suspicious CT evidence of mass lesion or adenopathy. Stable central low-density changes in the central right lobe of the liver Colonic diverticulosis Stable pulmonary diverticulum and bladder wall thickening likely due to postsurgical scarring Degenerative bony changes Electronically Signed: Rob Steven MD at 9:18 EDT , Service support ,
--- NOTE | 2018-10-21 06:48 | CT_ITS ---
STUDY: CT CHEST WITH CONTRAST REASON FOR EXAM: Male, 73 years old. Chest pain, history of bladder cancer, hypertension RADIATION DOSAGE (If Supplied By Facility): CTDIvol = ( 11.05 ) mGy, DLP = ( 1826.62 ) mGycm TECHNIQUE: Transaxial imaging was performed following intravenous administration of 100mL IV Isovue 300. Individualized dose optimization techniques were used for this CT. COMPARISON: 09/09/2018 FINDINGS: Stable small bilateral axillary lymph nodes. Calcified granuloma in the superior segment of the right lower lobe. Stable fibrocalcific scarring at the right lung apex. Mild scarring at the left lung apex. Stable 5 mm nodule in the left lower lobe as seen on axial image #124. There is no demonstrated pleural abnormality. Normal heart and pericardium. There are multiple small lymph nodes within the mediastinum, which are normal in size and morphology most compatible with reactive lymph hyperplasia. Normal hilar regions. Normal enhanced pulmonary arteries. Normal aorta arch and descending thoracic aorta. There are multi-level degenerative changes of the thoracic spine. CT/Chest WITH Contrast IMPRESSION: No acute abnormality is seen. Stable examination. Electronically Signed: Rob Steven MD at 8:33 EDT , Service support ,
== END ==
PROVIDERS: Referring Provider Internal Medicine Medical Oncology; Visit Provider Internal Medicine Medical Oncology
DX: C67.9 Malignant neoplasm of bladder, unspecified (principal)
CPT/HCPCS: 71260; 74177; Q9967; A4216

== ENCOUNTER → 2018-12-09 07:41 | Outpatient (CLI) | payer MEDICARE, OTHER, SELFPAY ==
[2018-11-20 09:04] VITALS: BMI 21.3
[2018-11-22 08:26] VITALS: BMI 21.3
--- NOTE | 2018-12-09 07:42 | CT_ITS ---
STUDY: CT CHEST WITH CONTRAST REASON FOR EXAM: Male, 73 years old. History of bladder cancer. Prior surgery and chemotherapy. RADIATION DOSAGE (If Supplied By Facility): CTDIvol = ( 9.63 ) mGy, DLP = ( 1258.43 ) mGycm TECHNIQUE: Transaxial imaging was performed following intravenous administration of 100 IV Isovue 300. Multiplanar coronal and sagittal images were reformatted. Individualized dose optimization techniques were used for this CT. COMPARISON: Comparison is made with prior study dated October 21, 2018. FINDINGS: A right-sided portacatheter is seen. The tip is in the superior vena cava. Mild increased markings at the right lung apex suggestive of scarring. This is unchanged. Minimal changes are also seen in the left lung apex. Mild degree of underlying emphysematous changes. Stable calcified granuloma in the superior segment of the right lower lobe. Stable mild increased markings at the lung bases likely more prominent on the right side suggestive of scarring. There is no demonstrated pleural abnormality. Normal heart and pericardium. Normal mediastinum. Normal hilar regions. Normal enhanced pulmonary arteries. There is atherosclerotic calcification of the aortic arch . There are mild degenerative changes of the thoracic spine. Hiatal hernia. Subtotal gastrectomy. CT/Chest WITH Contrast IMPRESSION: Stable examination. Electronically Signed: Evans Pearce, at 11:14 EDT , Service support ,
--- NOTE | 2018-12-09 07:42 | CT_ITS ---
STUDY: CT ABDOMEN AND PELVIS WITH CONTRAST REASON FOR EXAM: Male, 73 years old. Bladder cancer. Prior chemotherapy. RADIATION DOSAGE (If Supplied By Facility): CTDIvol = ( 9.63 ) mGy, DLP = ( 1258.43 ) mGycm TECHNIQUE: Transaxial images were obtained from the dome of the diaphragm to the symphysis pubis with oral contrast. 100 IV/Oral Isovue 300 was administered. Sagittal and coronal images were reconstructed. Individualized dose optimization techniques were used for this CT. COMPARISON: Comparison is made with prior study dated October 21, 2018. FINDINGS: Minimal increased markings at the lung bases suggestive of atelectasis and/or scar. The visualized portions of the heart are within normal limits. Normal liver. Normal gallbladder and extrahepatic biliary system. There are multiple benign calcified granulomata of the spleen. Normal pancreas. Normal bilateral adrenal glands. Normal right kidney. Normal left kidney. Retroaortic left renal vein. There is a small hiatal hernia. Normal small intestine. There are multiple colonic diverticula consistent with diverticulosis. The appendix is visualized and appears normal. There is diffuse atherosclerotic calcification of the abdominal aorta, without a demonstrated aneurysm. Normal inferior vena cava. Normal retroperitoneum. Stable appearance of the bladder. Mild degree of residual bladder wall thickening with a small diverticulum along the superior left side of the bladder. Surgical clips are seen along the anterior wall of the bladder. The patient is status post prostatectomy. Normal abdominal wall. There are minimal degenerative changes of the visualized lumbar spine. CT/Abdomen/Pelvis WITH Contrast IMPRESSION: Stable examination. Stable appearance of the urinary bladder. Electronically Signed: Evans Pearce, at 9:39 EDT , Service support ,
== END ==
PROVIDERS: Referring Provider Internal Medicine Medical Oncology; Visit Provider Internal Medicine Medical Oncology
DX: C80.1 Malignant (primary) neoplasm, unspecified (principal); C67.9 Malignant neoplasm of bladder, unspecified
CPT/HCPCS: 71260; 74177; Q9967; A4216

== ENCOUNTER → 2019-02-14 07:17 | Outpatient (CLI) | payer MEDICARE, OTHER, SELFPAY ==
[2018-11-22 08:26] VITALS: BMI 21.3
[2019-02-13 14:34] VITALS: BMI 21.2
--- NOTE | 2019-02-14 07:19 | CT_ITS ---
STUDY: CT ABDOMEN AND PELVIS WITH CONTRAST REASON FOR EXAM: Male, 73 years old. One-week history of hematuria. History of bladder cancer. RADIATION DOSAGE (If Supplied By Facility): CTDIvol = ( 15.09 ) mGy, DLP = ( 1250.70 ) mGycm TECHNIQUE: Transaxial images were obtained from the dome of the diaphragm to the symphysis pubis with oral contrast. IV/Oral Isovue 300 100mL was administered. Sagittal and coronal images were reconstructed. Individualized dose optimization techniques were used for this CT. COMPARISON: Comparison is made with prior examination dated December 09, 2018. FINDINGS: The visualized lung bases are unremarkable. The visualized portions of the heart are within normal limits. There is a 9.5 mm rounded hypodensity in the dome of the anterior aspect of the right lobe of the liver. This was faintly seen on prior study. This may represent a small hemangioma. A focal metastatic deposit cannot be excluded. Correlation with ultrasound is recommended. Normal gallbladder and extrahepatic biliary system. There are multiple benign calcified granulomata of the spleen. Normal pancreas. Normal bilateral adrenal glands. Normal right kidney. Normal left kidney. There is a small hiatal hernia. Normal small intestine. Normal colon. The appendix is visualized and appears normal. There is diffuse atherosclerotic calcification of the abdominal aorta, without a demonstrated aneurysm. Normal inferior vena cava. There is retroperitoneal lymphadenopathy with enlarged nodes greater than 10-15mm in the short axis. This is new as compared to prior study. The bladder is contracted. It is deformed. There is evidence of pleural thickening along the anterior aspect of the urinary bladder. There now is evidence of a 4.3 cm x 3.4 cm inhomogeneous mass in the right hemipelvis adjacent to the iliac bone. More medial to this, there is a similar appearing inhomogeneous mass measuring 3.1 cm x 3.9 cm. Multiple small masses in the conglomeration are also seen in the lower aspect of the right hemipelvis adjacent to the urinary bladder. These are new as compared to prior study as well. Surgical clips are seen along the anterior aspect of the wall the bladder as well as the anterior abdominal wall most likely secondary to prior surgery. There are minimal degenerative changes of the visualized lumbar spine. CT/Abdomen/Pelvis WITH Contrast IMPRESSION: Since prior study, there has been development of retroperitoneal Electronically Signed: Evans Pearce, at 10:57 EST , Service support ,
[2019-02-14 07:30] LABS: EGFR FINGERSTICK > 60.0000 mL/min (>60)
== END ==
PROVIDERS: Referring Provider Internal Medicine Medical Oncology; Visit Provider Internal Medicine Medical Oncology
DX: Z01.818 Encounter for other preprocedural examination (principal); C67.9 Malignant neoplasm of bladder, unspecified; R31.9 Hematuria, unspecified
CPT/HCPCS: 74177; Q9967; A4216

== ENCOUNTER → 2019-02-18 07:34 | Outpatient (CLI) | payer MEDICARE, OTHER, SELFPAY ==
[2019-02-17 09:58] VITALS: BMI 20.9
--- NOTE | 2019-02-18 07:38 | CT_ITS ---
STUDY: CT CHEST WITH CONTRAST REASON FOR EXAM: Male, 73 years old. Patient has a history of bladder cancer. COPD. RADIATION DOSAGE (If Supplied By Facility): CTDIvol = ( 8.68 ) mGy, DLP = ( 287.55 ) mGycm TECHNIQUE: Transaxial imaging was performed following intravenous administration of IV Isovue 370 100. Multiplanar coronal and sagittal images were reformatted. Individualized dose optimization techniques were used for this CT. COMPARISON: Comparison is made with prior study dated December 09, 2018 and October 21, 2018. FINDINGS: A right sided zach catheter is once again seen. The tip is in the superior vena cava. There is a 1.1 cm x 1.7 cm nodular density in the retroareolar region of the left breast. Clinical correlation is recommended. Stable fibrocalcific scarring in the right lung apex. Minimal scarring in the left lung apex as well. Mild degree of emphysematous changes. Calcified granuloma in the superior segment of the right lower lobe. Stable scarring at the lung bases. There is no demonstrated pleural abnormality. Normal heart and pericardium. Normal mediastinum. Normal hilar regions. Normal enhanced pulmonary arteries. There is atherosclerotic calcification of the aortic arch . There are mild degenerative changes of the thoracic spine. Small hiatal hernia. CT/Chest WITH Contrast IMPRESSION: Stable examination. Electronically Signed: Evans Pearce, at 9:05 EST , Service support ,
== END ==
PROVIDERS: Referring Provider Internal Medicine Medical Oncology; Visit Provider Internal Medicine Medical Oncology
DX: C67.9 Malignant neoplasm of bladder, unspecified (principal); C77.5 Secondary and unspecified malignant neoplasm of intrapelvic lymph nodes
CPT/HCPCS: 71260; Q9967; A4216

== ENCOUNTER → 2019-02-21 07:49 | Outpatient (CLI) | payer MEDICARE, OTHER, SELFPAY ==
[2019-02-17 09:58] VITALS: BMI 20.9
[2019-02-18 09:07] VITALS: BMI 20.9
--- NOTE | 2019-02-21 07:51 | MRI_ITS ---
STUDY: MRI BRAIN WITH AND WITHOUT CONTRAST REASON FOR EXAM: Male, 73 years old. Bladder cancer TECHNIQUE: Standardized multiplanar fat and water weighted pulse sequences were obtained. Catheter Injection Dotarem 15 was administered for the contrast portion of the examination. COMPARISON: None. FINDINGS: Normal size of the ventricles and extra-axial spaces for the patient's age. Normal white matter tracts of the supratentorial brain. There is no evidence for recent intracranial ischemia or other cause of cytotoxic edema on diffusion weighted imaging (DWI). Normal T2* images of the brain without demonstrated susceptibility artifact. There is no demonstrated hemosiderin stain. Normal bilateral basal ganglia. Normal thalami. There is no extra-axial fluid accumulation. Normal flow voids within the major intracranial circulation suggesting patency by spin echo criteria. Normal venous enhancement. There is no enhancing intra-axial or extra-axial abnormality. Normal sella turcica, pituitary gland, infundibular stalk, optic chiasm and hypothalamus. Normal tectal plate and pineal gland. Normal midbrain, carlo and medulla. Normal cerebellum. Normal basal cisterns. Normal bilateral temporal bones. Normal bilateral internal auditory canals. No demonstrated orbital abnormality, within the constraints of a routine brain study. Normal visualized paranasal sinuses. Normal calvarium and skull base. Normal visualized soft tissue structures. Normal visualized upper cervical spine. MRI/Brain W/WO Contrast IMPRESSION: Normal unenhanced and enhanced MRI of the brain. No MR evidence metastatic disease. Electronically Signed: Frederic Baumann MD at 9:44 EST Tel , Service support ,
== END ==
PROVIDERS: Referring Provider Internal Medicine Medical Oncology; Visit Provider Internal Medicine Medical Oncology
DX: C67.9 Malignant neoplasm of bladder, unspecified (principal); C77.5 Secondary and unspecified malignant neoplasm of intrapelvic lymph nodes
CPT/HCPCS: 70553

== ENCOUNTER 2019-02-24 00:51 | Emergency (ER) | payer MEDICARE, OTHER, SELFPAY ==
[2019-02-18 09:07] VITALS: BMI 20.9
[2019-02-24 00:51] VITALS: BP 146/69; PULSE 84; RESP 18; TEMP 36.7; O2SAT 94; BMI 21.9
--- NOTE | 2019-02-24 01:04 | ED.VIS.GEN ---
History of Present Illness Chief Complaint: Complaint Informant: Patient Narrative: Stated he is having acute urinary retention secondary to blood clots. He had surgery on bladder cancer early in this year. He went through 8 rounds of chemotherapy in October. He has recurrent bladder tumor. He is going to start chemo again next week. Occasionally he has bleeding and clots which is something he deals with. Tonight he has been having difficulty urinating secondary to a suspected clot in his urethra. He has had to have a Payton catheter in the past - Past Medical History (1) Chemotherapy follow-up examination Status: Acute (2) Chemotherapy management, encounter for Status: Acute (3) Chest pain Status: Acute (4) Encounter for education Status: Acute (5) Hematuria Status: Acute (6) Hiccups Status: Acute (7) Neutropenia, febrile Status: Acute (8) Neutropenic sepsis Status: Acute (9) Pancytopenia due to antineoplastic chemotherapy Status: Acute (10) Urinary tract infection Status: Acute (11) Bladder cancer Status: Chronic (12) Hypertension Status: Chronic (13) Malignant small cell cancer Status: Chronic Past Medical History - Allergies and Home Meds Allergies/Adverse Reactions: Allergies No Known Allergies Allergy (Verified 02/18/19 09:06) Primary Care Physician: [place] [place] [Primary Care Provider] - Prior records reviewed: Yes Past Medical History: - - See problem list Surgical History: herniorrhaphy, - - Bladder cancer Lives: With Family Smoking Status: Former smoker Alcohol: None Drugs: None - Family History Maternal Family History: Family History (Last Reviewed 02/18/19 @ 09:06 by Beverly Clemons) Mother Breast cancer Father CVA (cerebral vascular accident) Hypertension Sister Hypertension Brother Hypertension Family History: Reports: Cancer, Dementia - alive age 92 Paternal Family History: Family History (Last Reviewed 02/18/19 @ 09:06 by Beverly Clemons) Mother Breast cancer Father CVA (cerebral vascular accident) Hypertension Sister Hypertension Brother Hypertension Family History: Reports: Heart Disease - age 79 Review of Systems General: Denies: Chills, Fever, Sweats Eyes: Denies: Visual changes - bilaterally, Diplopia ENT: Denies: Rhinorrhea, Sore throat Cardiovascular: Denies: Chest pain, Palpitations Respiratory: Denies: Dyspnea, Cough, Dyspnea on exertion Gastrointestinal: Reports: Abdominal pain - Due to urinary retention. Denies: Nausea, Vomiting, Diarrhea, Melena, Hematochezia Genitourinary: Reports: Hematuria. Denies: Dysuria, Frequency Musculoskeletal: Denies: Back pain, Extremity Pain Skin: Denies: Rash, Wounds Neurological: Denies: Headache, Weakness, Numbness Physical Exam Vital Signs/Narrative: Vital Signs Temp Pulse Resp BP Pulse Ox 02/24/19 00:51 98.0 F 84 18 146/69 H 94 General: Well nourished, Well developed, No Acute Distress Head: Normocephalic, Atraumatic Eyes: Perrl, EOMI ENT: Moist mucous membranes, No rhinorrhea Neck: Supple, Nontender Cardiovascular: Regular rate, Regular rhythm, No murmurs Respiratory: No distress, CTA bilaterally, Chest nontender Abdomen: Soft, Nondistended, Normal bowel sounds, Tender - Mild tenderness suprapubic Back: Nontender, Normal Inspection Extremities: Nontender, No edema Skin: Normal color, No rash Neurological: Alert, Oriented x3, Cranial nerves II-XII grossly intact, Normal Strength, Normal Sensation Psychological: Normal affect, Normal Mood Diagnostic/Tx/Re-eval - Medical Decision Making Payton catheter attempted and unable to pass secondary to clot. The patient went to the bathroom and urinated out a clot and completely emptied his bladder. Bladder scan shows only 50 cc. At this time I discussed with the patient we will hold off doing a catheter. He will follow-up with his urologist ED Disposition - Plan for ED Patient: Disposition: Home or Assisted Living Diagnosis: Acute urinary retention Instructions: URINARY RETENTION, Male [facility] [Primary Care Provider] -
--- NOTE | 2019-02-24 02:18 | ED.RN ---
unsuccessful with placement of michele catheter, unable to advance cath tip into pt penis. pt able to urinate on own, and able to pass clots, reports relief after urination. dr. kate informed. will continue to monitor.
== END 2019-02-24 02:30 | disposition home or self-care (01) ==
PROVIDERS: Emergency Provider Emergency Medicine
DX: R33.9 Retention of urine, unspecified (principal); R31.9 Hematuria, unspecified; I10 Essential (primary) hypertension; Z85.51 Personal history of malignant neoplasm of bladder; Z92.21 Personal history of antineoplastic chemotherapy; Z87.891 Personal history of nicotine dependence
CPT/HCPCS: 99282

== ENCOUNTER → 2019-04-11 07:52 | Outpatient (CLI) | payer OTHER, MEDICARE, SELFPAY ==
[2019-03-31 09:03] VITALS: BMI 20.4
[2019-04-07 09:27] VITALS: BMI 20.4
--- NOTE | 2019-04-11 07:52 | CT_ITS ---
STUDY: CT ABDOMEN AND PELVIS WITH CONTRAST REASON FOR EXAM: Male, 73 years old. BLADDER CANCER/MONITORING CHEMO RESPONSE. Retroperitoneal and pelvic lymphadenopathy. RADIATION DOSAGE (If Supplied By Facility): CTDIvol = ( 10.82 ) mGy, DLP = ( 938.96 ) mGycm TECHNIQUE: Transaxial images were obtained from the dome of the diaphragm to the symphysis pubis without oral contrast. Oral and amp; IV Readi-CAT and amp; 100mL Isovue-300 was administered. Sagittal and coronal images were reconstructed. Individualized dose optimization techniques were used for this CT. COMPARISON: Comparison is made with prior study dated February 14, 2019. FINDINGS: Minimal increased markings at the lung bases suggestive of atelectasis and/or scarring. The visualized portions of the heart are within normal limits. Stable 9.5 mm rounded hypodensity in the dome of the anterior aspect of the right lobe of the liver. Normal gallbladder and extrahepatic biliary system. There are multiple benign calcified granulomata of the spleen. Normal pancreas. Normal bilateral adrenal glands. Normal right kidney. Normal left kidney. There is a small hiatal hernia. Normal small intestine. Normal colon. The appendix is visualized and appears normal. There is diffuse atherosclerotic calcification of the abdominal aorta, without a demonstrated aneurysm. Normal inferior vena cava. There is retroperitoneal lymphadenopathy with enlarged nodes greater than 10-15mm in the short axis. This has progressed as compared to prior study. Marked irregularity along the superior right lateral aspect of the urinary bladder. Surgical clips are seen at this site. Stable 3.9 cm x 3.1 cm inhomogeneous soft tissue mass in the right side of the pelvis. This extends cephalad. This is unchanged. Normal abdominal wall. There are mild degenerative changes of the visualized lumbar spine. CT/Abdomen/Pelvis WITH Contrast IMPRESSION: Slight progression in the retroperitoneal lymphadenopathy. The remainder of the examination is unchanged. Electronically Signed: Evans Perace, at 15:11 EST , Service support ,
[2019-04-11] MEDS: 0.9% Saline Lock 10 ML Syringe IV (08:10)
== END ==
PROVIDERS: Referring Provider Internal Medicine Medical Oncology; Visit Provider Internal Medicine Medical Oncology
DX: C67.9 Malignant neoplasm of bladder, unspecified (principal)
CPT/HCPCS: 74177; Q9967; A4216

== ENCOUNTER → 2019-05-08 10:55 | Outpatient (CLI) | payer OTHER, MEDICARE, SELFPAY ==
[2019-05-08 09:44] VITALS: BMI 20.4
--- NOTE | 2019-05-08 10:57 | CT_ITS ---
STUDY: CT ABDOMEN AND PELVIS WITH CONTRAST REASON FOR EXAM: Male, 74 years old. Right flank pain, bladder cancer on chemotherapy currently. Prior hernia repair x 3, bladder tumors removed. RADIATION DOSAGE (If Supplied By Facility): CTDIvol = ( 9.52 ) mGy, DLP = ( 777.72 ) mGycm TECHNIQUE: Transaxial images were obtained from the dome of the diaphragm to the symphysis pubis without oral contrast. IV 100mL Isovue-300 was administered. Sagittal and coronal images were reconstructed. Individualized dose optimization techniques were used for this CT. COMPARISON: Comparison is made with prior examination dated April 11, 2019. FINDINGS: Stable mild degree of increased markings at the lung bases suggestive of bibasilar scarring. The visualized portions of the heart are within normal limits. Stable 9.5 mm rounded hypodensity in the dome of the anterior aspect of the right lobe of the liver. Normal gallbladder and extrahepatic biliary system. There are multiple benign calcified granulomata of the spleen. Normal pancreas. Normal bilateral adrenal glands. There now is evidence of a moderate degree of right hydronephrosis and right hydroureter. There is evidence of right perinephric and periureteral ureteric stranding. This most likely is due to right sided retroperitoneal lymphadenopathy as well as a 4.5 cm x 5.8 cm mass in the right side of the pelvis most likely representing adenopathy. There is also evidence of a 7.2 cm x 5.5 cm mass in the lower right hemipelvis adjacent to the bladder with displacement of the bladder towards the left side of the midline. These masses have progressed as compared to prior study. Normal left kidney. There is a small hiatal hernia. Normal small intestine. There are multiple colonic diverticula consistent with diverticulosis. There is non-visualization of the appendix. There is diffuse atherosclerotic calcification of the abdominal aorta, without a demonstrated aneurysm. Normal inferior vena cava. There is retroperitoneal lymphadenopathy with enlarged nodes greater than 10-15mm in the short axis. Mild thickening of the bladder wall. There is evidence of a prior right inguinal hernia repair. There are mild degenerative changes of the visualized lumbar spine. CT/Abdomen/Pelvis W IV Cont ONLY IMPRESSION: Moderate degree of right hydronephrosis and hydroureter due to a retroperitoneal masses worse on the right side as well as irregular inhomogeneous masses in the right hemipelvis. The urinary bladder is displaced towards the left side of the pelvis. Electronically Signed: Evans Pearce, at 12:07 EST , Service support ,
== END ==
PROVIDERS: Referring Provider Nurse Practitioner Family; Visit Provider Nurse Practitioner Family
DX: C67.9 Malignant neoplasm of bladder, unspecified (principal); G89.3 Neoplasm related pain (acute) (chronic); R59.0 Localized enlarged lymph nodes
CPT/HCPCS: 74177; Q9967; A4216

== ENCOUNTER 2019-05-21 01:05 | Emergency (ER) | payer OTHER, MEDICARE, SELFPAY ==
[2019-05-08 09:44] VITALS: BMI 20.4
[2019-05-19 09:13] VITALS: BMI 19.8
[2019-05-21 01:06] VITALS: BP 124/65; PULSE 126; RESP 18; TEMP 36.8; O2SAT 98
[2019-05-21] MEDS: Lidocaine Jelly 2% 20 ML Syringe (URO-JET) 20 APPLIC TOPICAL (01:37)
[2019-05-21 02:11] LABS: Bacteria 0 SEEN /hpf (None Seen); Mucous, Urine 0 SEEN /hpf (<or=2+); Squamous Epithelial Cells - UA 0 SEEN /hpf (0-5); White Blood Cells 0 SEEN /hpf (0-5)
[2019-05-21 02:12] LABS: Color, Urine Red (Yellow); Glucose, Dipstick Normal (Normal); Ketone-Dipstick 15 mg/dl (Negative); Leukocyte Esterase-Dipstick Negative /ul (Negative); Nitrite-Dipstick Negative (Negative); Occult Blood-Urine 250 /ul (Negative); Protein-Dipstick 500 mg/dl (Negative); Urine Bilirubin Dipstick Negative (Negative); Urine Clarity Turbid (Clear); Urine Urobilinogen Normal (Normal)
[2019-05-21 02:27] LABS: Red Blood Cells-Urine > 100 SEEN /hpf (0-5)
[2019-05-21 03:21] VITALS: BP 120/66; PULSE 88; RESP 16; O2SAT 99
[2019-05-21] MEDS: Acetaminophen/Codeine #3 Tablet 1 TABLET PO (03:21)
--- NOTE | 2019-05-21 03:41 | ED.DCSUM_ITS ---
History of Present Illness Chief Complaint: Complaint Informant: Patient Onset: Today Context: Gradual Onset Timing: Continuous Narrative: Patient is a 74-year-old male with history of bladder cancer due to start radi ation therapy in 2 days presenting with urinary retention and abdominal discomfort. Patient states his last normal void was around 4 PM. About 30 minutes prior to arrival he tried to urinate and only had a small amount of bloody urine come out. He feels the need to urinate but is not able to. He states he has had similar episodes where there is been large blood clots that have caused him to have retention. Normally he is able to position himself so he can pull the blood clots out and then he can urinate. Patient denies any fever or chills. He denies any other complaints at this time. He does have a nephrostomy tube on the right which has been draining normally. Prior similar symptoms: Yes - hematuria, retention - Past Medical History (1) Hypertension Status: Chronic (2) Bladder cancer Status: Chronic Past Medical History - Allergies and Home Meds Allergies/Adverse Reactions: Allergies No Known Allergies Allergy (Verified 05/21/19 01:11) Primary Care Physician: [place] [place]Primary Care [place]] - Past Medical History: - - Bladder cancer, COPD, hypertension Surgical History: herniorrhaphy, - - Bladder cancer Lives: Spouse/ Significant Other, With Family Smoking Status: Former smoker - Family History Maternal Family History: Family History (Last Reviewed 05/19/19 @ 09:15 by Sarah Dennis RN) Mother Breast cancer Father CVA (cerebral vascular accident) Hypertension Sister Hypertension Brother Hypertension Family History: Reports: Cancer, Dementia - alive age 92 Paternal Family History: Family History (Last Reviewed 05/19/19 @ 09:15 by Sarah Dennis RN) Mother Breast cancer Father CVA (cerebral vascular accident) Hypertension Sister Hypertension Brother Hypertension Family History: Reports: Heart Disease - age 79 Review of Systems General: Denies: Chills, Fever, Sweats Eyes: Denies: Visual changes - bilaterally, Diplopia ENT: Denies: Rhinorrhea, Sore throat Cardiovascular: Denies: Chest pain, Palpitations Respiratory: Denies: Dyspnea, Cough, Dyspnea on exertion Gastrointestinal: Reports: Abdominal pain. Denies: Nausea, Vomiting, Diarrhea, Melena, Hematochezia Genitourinary: Reports: Hematuria, - - Urgency, difficulty urinating. Denies: Dysuria, Frequency Musculoskeletal: Denies: Back pain, Extremity Pain Skin: Denies: Rash, Wounds Neurological: Denies: Headache, Weakness, Numbness Hematologic: Denies: Easy bruising, Easy bleeding Physical Exam Vital Signs/Narrative: Vital Signs Temp Pulse Resp BP Pulse Ox 05/21/19 03:21 88 16 120/66 99 05/21/19 01:06 98.3 F 126 H 18 124/65 H 98 Inital Vital Signs reviewed: Yes General: Well developed, Cachectic, No Acute Distress Head: Normocephalic, Atraumatic Eyes: Perrl, EOMI ENT: Moist mucous membranes, No rhinorrhea Neck: Supple, Nontender Cardiovascular: Regular rate, Regular rhythm, No murmurs Respiratory: No distress, CTA bilaterally, Chest nontender Abdomen: Soft, Nondistended, Normal bowel sounds, Tender - Suprapubic region, - - Fullness of the suprapubic region. Negative for: Mass, Pulsatile mass Back: Nontender, Normal Inspection, - - Right nephrostomy tube present. Negative for: CVA tenderness Extremities: Nontender, No edema Skin: Normal color, No rash Neurological: Alert, Oriented x3, Cranial nerves II-XII grossly intact, Normal Strength, Normal Sensation Psychological: Normal affect, Normal Mood Diagnostic/Tx/Re-eval Laboratory Data 05/21/19 01:56 Urine Color Red Urine Clarity Turbid Urine pH 7.0 Ur Specific [place] 1.010 Urine Protein 500 H Urine Glucose (UA) Normal Urine Ketones 15 H Urine Occult Blood 250 H Urine Nitrite Negative Urine Bilirubin Negative Urine Urobilinogen Normal Ur Leukocyte Esterase Negative Urine RBC > 100 SEEN Urine WBC 0 SEEN Ur Squamous Epith Cells 0 SEEN Urine Bacteria 0 SEEN Urine Mucus 0 SEEN - Medical Decision Making Evaluated for hematuria and associated urinary retention. He has ongoing issues of hematuria associated with his bladder cancer. A Payton catheter is placed however it is smaller in a daily secondary to difficulty passing it. Patient does have about 400 cc of dark red urine with some clots out. It continues to drain. The Payton catheter is flushed it does not seem to have any further clots. Urinalysis shows hematuria but does not show any superimposed infection. Patient be discharged home. He will follow-up with his oncologist in a day and a half for when he starts radiation. He is counseled either his urologist, PCP or oncologist could remove the Payton after about a week. Patient is counseled on signs and symptoms requiring return to the emergency room. Patient verbalizes agreement and understand this plan. Patient discharged home in stable and improved condition. ED Disposition - Plan for ED Patient: Disposition: Home or Assisted Living Diagnosis: Hematuria, Acute urinary retention Instructions: URINARY RETENTION, Male [facility]errals: [facility] [Primary Care Provider] - Additional Instructions: Please follow-up with either urologist, primary care doctor or possibly your oncologist for removal of your Payton catheter in 1 week. Return to the [facility] if you develop worsening pain or your Payton stops draining. You do not have any signs of a urinary tract infection today.
--- NOTE | 2019-05-21 04:00 | ED.RN ---
pt and family educated on caring for michele catheter and changing bags and keeping sterile field. family verbalizes understanding.
[2019-05-21 04:33] VITALS: BP 120/66; PULSE 88; RESP 16; O2SAT 99
== END 2019-05-21 04:34 | disposition home or self-care (01) ==
PROVIDERS: Emergency Provider Emergency Medicine
DX: R31.9 Hematuria, unspecified (principal); R33.9 Retention of urine, unspecified; Z51.0 Encounter for antineoplastic radiation therapy; C67.9 Malignant neoplasm of bladder, unspecified; C78.7 Secondary malignant neoplasm of liver and intrahepatic bile duct; I10 Essential (primary) hypertension; J44.9 Chronic obstructive pulmonary disease, unspecified; Z93.6 Other artificial openings of urinary tract status; Z87.891 Personal history of nicotine dependence
CPT/HCPCS: 51702; 77295; 77300; 81001; 99283; A4216

== ENCOUNTER 2019-05-22 10:21 | Emergency (ER) | payer OTHER, MEDICARE, SELFPAY ==
[2019-05-19 09:13] VITALS: BMI 19.8
[2019-05-22] VITALS (7 sets, daily range): BP systolic 113–134; BP diastolic 62–69; PULSE 81–121; RESP 16–18; TEMP 36.6–36.7; O2SAT 97–100; BMI 19.8
--- NOTE | 2019-05-22 10:47 | ED.VISSUMM ---
- ER Visit Summary Date of Service: 05/22/19 Chief Complaint: [Hematuria and Payton catheter problem] History of Present Illness: The patient is a 74 M [presents to the emergency department with complaint of leaking around his catheter. Patient has history of bladder cancer. Patient was referred to the ER today by his radiation oncologist. Patient was seen in the emergency department 2 evenings ago and had a catheter placed however he states that he had a small catheter placed because they were having a hard time getting a larger one in the place. Patient complains of pain with sitting and blood leaking around his catheter and out his penis. He denies any fevers. Patient also has a nephrostomy on the right side. Patient denies feeling lightheaded or dizzy.] Physical Examination: [HEENT-PERRLA, EOMI. Cranial nerves II through XII grossly intact. TMs clear. Mucous membranes moist. No adenopathy. Cardiovascular-regular rate and rhythm without murmur or ectopy Lungs-clear to auscultation, chest wall stable without crepitus or subcu emphysema Abdomen-normoactive bowel sounds, soft. Patient has some mild tenderness over the suprapubic region. No rebound, rigidity, or peritoneal signs. exam-catheter in place. Small amount of blood noted in the Payton bag. There is some blood at the urethral meatus noted. Extremities-intact ?4, normal range of motion, normal pulses, atraumatic] Test Results: [CBC with differential obtained showed a white count 11.5, hemoglobin 6.7, hematocrit 21.6, platelets 485. Chemistries unremarkable. BUN was 18 and creatinine 1.55. Patient's last hemoglobin on May 05 was over 9 which is almost a three-point drop.] Emergency Department Course and Treatment: [Patient had an IV line established and was given normal saline. Patient will be ordered packed red blood cells. I ordered a three-way Payton catheter placed for bladder irrigation as we were unable to get the current Payton catheter to drain.] Treatment Plan: [Transfer to [facility]. Patient was seen by hospitalist here who would not admit the patient due to the fact that we do not have urology coverage and patient would not be able to be seen or intervened upon if his bleeding persists. Patient then requested to be transferred to [facility]. I discussed case with [facility] and hospitalist accepted transfer patient] Disposition: [Transfer to [facility]] Impression: [Hematuria Symptomatic anemia Clogged Payton catheter History of bladder cancer] This note was generated with DivX dictation software. It may contain incorrect words, spelling, and punctuation that were not noted in review of the chart prior to signing ED Disposition - Plan for ED Patient: [facility] [Primary Care Provider] -
[2019-05-22 11:07] LABS: Absolute Lymphocyte Count 0.61 X10^3/uL (0.83-4.51); Absolute Neutrophil Count 9.5 X10^3/uL (2.0-7.7); Basophil# 0.06 X10^3/uL; Basophil% 0.5 % (0-1); Eosinophil# 0.01 X10^3/uL; Eosinophils% 0.1 % (0-5); Hematocrit 21.6 % (40-54); Hemoglobin 6.7 g/dL (13.0-16.5); Lymphocyte # 0.61 X10^3/ul (4.0); Lymphocyte % 5.3 % (19-41); Mean Corpuscular Volume 93.5 fL (80-94); Mean Platelet Vol. 9.3 fl (6.2-12.0); Monocyte# 1.18 X10^3/uL; Monocyte% 10.3 % (0-10); NRBC Flagged by Analyzer 0 % (0-5); Neutrophil # 9.53 X10^3/uL (2.7-7.7); Neutrophil % 82.8 % (47-70); POSITIVE MORPHOLOGY YES; Platelet Count 485 K/mm3 (150-450); RBC Distribution Width CV 22.8 % (11.6-14.6); RBC Distribution Width SD 75.6 fl (35.1-43.9); Red Blood Count 2.31 M/mm3 (4.6-6.2); White Blood Count 11.5 K/mm3 (4.4-11.0)
[2019-05-22 11:10] LABS: Differential Indicated SCAN CRITERIA MET
[2019-05-22] MEDS: Acetaminophen/Codeine #3 Tablet 1 TABLET PO (11:14)
[2019-05-22] MEDS: 0.9% Normal Saline 1,000 ML 150 ML IV (11:16)
[2019-05-22 11:20] LABS: Anion Gap 9 (5-15); BUN 18 mg/dL (7-18); BUN/Creat Ratio 11.6 RATIO (10-20); Calcium,Total 9.4 mg/dL (8.5-10.1); Chloride 101 mmol/L (98-107); Creatinine, Serum 1.55 mg/dL (0.70-1.30); EST Glomerular Filtration Rate 47 mL/min (>60); Est Glom Filt Rate - Afr Amer 57 mL/min (>60); Estimated Creatinine Clearance 40.85 ml/min; Glucose 158 mg/dL (74-106); Potassium 3.7 mmol/L (3.5-5.1); Sodium Level 135 mmol/L (136-145)
[2019-05-22 11:38] LABS: Anisocytosis 1+; Hypochromasia 1+; Platelet Estimate SLT INC (ADEQ)
--- NOTE | 2019-05-22 12:02 | ED.RN ---
SPOKE WITH SARAH AT THE [facility]. SHE ASKED THAT WE FAX CLINICAL INFORMATION TO THEM AND GIVE JAMAR A CALL AT EXT [phone] IN 45-TO 1 HR. GIVE HER TIME TO REVIEW CHART. THEY MAY WANT TO ADMIT HIM THERE BECAUSE HE WAS JUST DC FROM THERE A FEW DAYS AGO.
--- NOTE | 2019-05-22 12:50 | NURSING ---
RT NEPHROSTOMY TUBE STAYFIX DRESSING CHANGED BY THIS RN. TUBE SUTURE INTACT AND SURROUNDING SKIN WITHOUT REDNESS OR DRAINAGE. GIVEN RAD RN CONTACT INFO IF NEEDED FOR FUTURE DRESSING CHANGES.
== END 2019-05-22 15:53 | disposition short-term general hospital (02) ==
LOC: ED 11:19
PROVIDERS: Emergency Provider Emergency Medicine
DX: R31.9 Hematuria, unspecified (principal); D64.9 Anemia, unspecified; T83.091A Other mechanical complication of indwelling urethral catheter, initial encounter; Z85.51 Personal history of malignant neoplasm of bladder; Z93.6 Other artificial openings of urinary tract status; I10 Essential (primary) hypertension; J44.9 Chronic obstructive pulmonary disease, unspecified
CPT/HCPCS: 36591; 51702; 80048; 85025; 86850; 86900; 86901; 86920; 96360; 96361; 99285; J7030; J7040; P9016; A4216

== ENCOUNTER → 2019-06-20 12:56 | Outpatient (CLI) | payer OTHER, MEDICARE, SELFPAY ==
[2019-05-19 09:13] VITALS: BMI 19.8
[2019-06-18 10:27] VITALS: BMI 19.6
[2019-06-20 10:39] VITALS: BMI 19.6
--- NOTE | 2019-06-20 12:57 | CT_ITS ---
We are attempting to reach an attending provider to discuss findings. An addendum with communication details will be sent when the communication is complete. STUDY: CT ABDOMEN AND PELVIS WITHOUT CONTRAST REASON FOR EXAM: Male, 74 years old. BLADDER CA RADIATION DOSAGE (If Supplied By Facility): CTDIvol = ( 8.56 ) mGy, DLP = ( 765.75 ) mGycm TECHNIQUE: Transaxial images were obtained from the dome of the diaphragm to the symphysis pubis without oral contrast, and without intravenous contrast. Sagittal and coronal images were reconstructed. Individualized dose optimization techniques were used for this CT. COMPARISON: 05/08/2019. FINDINGS: Dominoes bilaterally and more significant in the right middle lobe and left lower lobe with atelectasis. Small nodule within the left lower lobe measuring 5 mm. The visualized portions of the heart are within normal limits. Mild bilateral pleural effusions, left larger than right. Hypoattenuating lesion with the right liver lobe junction with the left lobe just below the diaphragm with slight to the heterogeneous and irregular peripheral enhancement measuring 2.1 x 1.5 cm, increased in the interval and concerning for metastatic disease. Second heterogeneous lesion noted at the tip of the right liver lobe, image 54, series 1002 and measuring 2.1 x 2.0 cm. Remainder of the liver is normal. Normal gallbladder and extrahepatic biliary system. There are multiple benign calcified granulomata of the spleen. Normal pancreas. Normal bilateral adrenal glands. Right-sided nephrostomy stent in place. Small low-attenuation structure within the mid upper pole of the right kidney measuring 0.3 cm, too small to characterize and statistically consistent with a cyst. Otherwise normal right kidney. Normal left kidney. Stomach is decompressed otherwise unremarkable. Nonspecific mild diffuse distention of the small bowel was fluid within the lumen reaching a maximum diameter of approximately 2.2 cm. There is mild to moderate fecal debris within the colon otherwise: Unremarkable. There is non-visualization of the appendix. There is diffuse atherosclerotic calcification of the abdominal aorta, without a demonstrated aneurysm. Normal inferior vena cava. Multiple heterogeneous confluent masses surrounding the aorta and within the retroperitoneum extending to the bilateral iliac arteries and along the right external iliac artery consistent with retroperitoneal and pelvic lymphadenopathy, significantly increased in the interval. Urinary bladder is distended with thickening of the wall more severe at the upper and right anterolateral region consistent with known neoplasm. There is some heterogeneous masslike structure along the right anterolateral wall extending beyond the outline of the urinary bladder, markedly reduced in size in the interval. There is mild stranding along the medial aspect of the iliac crest musculature and right side of the pelvis, nonspecific. Incidental note is made of hypoattenuated lumen with peripheral enhancement of the wall at the level of the right common femoral vein and right iliac vein consistent with deep venous thrombosis. Status post anterior hernia repair of the lower abdomen and pelvis. Degenerative disease of the spine. CT/Abdomen/Pelvis W IV Cont ONLY IMPRESSION: Progression of the metastasis at the level of the liver and retroperitoneal region. Local regression of a neoplastic process at the level of the urinary bladder. Deep venous thrombosis within the right common femoral and right iliac vein. Electronically Signed: Peg Santiago MD at 2:35 EDT , Service support ,
--- NOTE | 2019-06-20 12:57 | CT_ITS ---
STUDY: CT CHEST WITH CONTRAST REASON FOR EXAM: Male, 74 years old. BLADDER CA RADIATION DOSAGE (If Supplied By Facility): CTDIvol = ( 9.39 ) mGy, DLP = ( 337.52 ) mGycm TECHNIQUE: Transaxial imaging was performed following intravenous administration of IV 100ML ISOVUE 300. Multiplanar coronal and sagittal images were reformatted. Individualized dose optimization techniques were used for this CT. COMPARISON: Comparison is made with prior study dated February 18, 2019. FINDINGS: A right-sided portacatheter seen in the superior vena cava. There is a 1.5 cm nodular density in the left breast. This is unchanged Mild degree of emphysematous changes. Small left pleural effusion. Increased markings with areas of bronchiectasis is seen in the anterior medial aspect of the lingular segment of the left upper lobe. This is new as compared to prior study. There is bronchiectasis also seen Right middle lobe anteriorly. 4 mm noncalcified nodule in the left lower lobe. 1 cm x 1.1 cm nodule in the anterior aspect of the lingular segment left upper lobe. Normal heart and pericardium. Normal mediastinum. Normal hilar regions. Normal enhanced pulmonary arteries. Normal aorta arch and descending thoracic aorta. There are mild degenerative changes of the thoracic spine. There is no demonstrated abnormality of the visualized upper abdomen. CT/Chest WITH Contrast IMPRESSION: Minimal left pleural effusion with areas of scarring and/or infiltrate in the right middle and lingular segment of the left upper lobe. New 1.1 cm x 1 cm nodular density measuring 2 mm in the left femoral as well as a 4 mm noncalcified nodule in the left. Electronically Signed: Evans Pearce, at 15:08 EDT , Service support ,
== END ==
PROVIDERS: Referring Provider Nurse Practitioner Family; Visit Provider Nurse Practitioner Family
DX: C67.9 Malignant neoplasm of bladder, unspecified (principal); R06.6 Hiccough
CPT/HCPCS: 71260; 74177; Q9967

== ENCOUNTER → 2019-06-23 14:18 | Outpatient (CLI) | payer OTHER, MEDICARE, SELFPAY ==
[2019-05-19 09:13] VITALS: BMI 19.8
[2019-06-18 10:27] VITALS: BMI 19.6
[2019-06-23 12:51] VITALS: BMI 20.2
--- NOTE | 2019-06-23 14:21 | MRI_ITS ---
STUDY: MRI BRAIN WITH AND WITHOUT CONTRAST REASON FOR EXAM: Male, 74 years old. BLADDER CA, ???INBOUND SALES CONSULTANT METS TECHNIQUE: Standardized multiplanar fat and water weighted pulse sequences were obtained. IV Dotarem 14ml was administered for the contrast portion of the examination. COMPARISON: MRI of the brain February 21, 2019 FINDINGS: Normal size of the ventricles and extra-axial spaces for the patient''s age. Normal white matter tracts of the supratentorial brain. Normal bilateral basal ganglia. Normal thalami. There is no extra-axial fluid accumulation. Normal flow voids within the major intracranial circulation suggesting patency by spin echo criteria. Normal venous enhancement. There is no enhancing intra-axial or extra-axial abnormality. Normal sella turcica, pituitary gland, infundibular stalk, optic chiasm and hypothalamus. Normal tectal plate and pineal gland. Normal midbrain, carlo and medulla. Normal cerebellum. Normal basal cisterns. Normal bilateral temporal bones. Normal bilateral internal auditory canals. No demonstrated orbital abnormality, within the constraints of a routine brain study. Mild mucoperiosteal thickening of the inferior maxillary antra noted. There is fluid in the mastoid air spaces bilaterally greater on the left and right. Normal calvarium and skull base. Multiple arachnoid granulations are seen in association with the posterior midline occipital region. Normal visualized soft tissue structures. Normal visualized upper cervical spine. MRI/Brain W/WO Contrast IMPRESSION: No evidence of metastatic disease to the brain. Progressive mastoid airspace opacities bilaterally when compared directly to the prior study. No other change. Electronically Signed: Heydi Knapp MD at 16:05 EDT , Service support ,
== END ==
PROVIDERS: Referring Provider Nurse Practitioner Family; Visit Provider Nurse Practitioner Family
DX: C67.9 Malignant neoplasm of bladder, unspecified (principal)
CPT/HCPCS: 70553; A9575; A4216

== ENCOUNTER 2019-06-28 03:59 | Emergency (ER) | payer OTHER, MEDICARE, SELFPAY ==
[2019-05-19 09:13] VITALS: BMI 19.8
[2019-06-26 09:42] VITALS: BMI 17.2
[2019-06-28 03:59] VITALS: BP 126/61; PULSE 114; RESP 16; TEMP 36.6; O2SAT 93; BMI 19.7
[2019-06-28 04:17] VITALS: BP 125/59; PULSE 105; RESP 15; TEMP 36.6; O2SAT 93
[2019-06-28] MEDS: 0.9% Normal Saline 1,000 ML 1000 ML IV (04:27)
[2019-06-28] MEDS: Ondansetron 4 MG/2 ML Vial IV (04:28)
[2019-06-28 04:30] LABS: Absolute Lymphocyte Count 0.39 X10^3/uL (0.83-4.51); Absolute Neutrophil Count 7.4 X10^3/uL (2.0-7.7); Basophil# 0.06 X10^3/uL; Basophil% 0.7 % (0-1); Eosinophil# 0.03 X10^3/uL; Eosinophils% 0.3 % (0-5); Hematocrit 29.6 % (40-54); Hemoglobin 9.3 g/dL (13.0-16.5); Lymphocyte # 0.39 X10^3/ul (4.0); Lymphocyte % 4.5 % (19-41); Mean Corp Hgb Conc 31.4 g/dL (32-36); Mean Corpuscular Hgb 28.8 pg (27.0-32.0); Mean Corpuscular Volume 91.6 fL (80-94); Mean Platelet Vol. 9.7 fl (6.2-12.0); Monocyte# 0.76 X10^3/uL; Monocyte% 8.8 % (0-10); NRBC Flagged by Analyzer 0 % (0-5); Neutrophil # 7.36 X10^3/uL (2.7-7.7); Neutrophil % 85.1 % (47-70); POSITIVE DIFFERENTIAL YES; POSITIVE MORPHOLOGY YES; Platelet Count 188 K/mm3 (150-450); RBC Distribution Width CV 19.2 % (11.6-14.6); RBC Distribution Width SD 60.5 fl (35.1-43.9); Red Blood Count 3.23 M/mm3 (4.6-6.2); White Blood Count 8.7 K/mm3 (4.4-11.0)
[2019-06-28 04:31] LABS: Differential Indicated SCAN CRITERIA MET
[2019-06-28 04:56] LABS: Mucous, Urine 0 SEEN /hpf (<or=2+); Squamous Epithelial Cells - UA 0 SEEN /hpf (0-5)
--- NOTE | 2019-06-28 04:56 | EKG12_ITS ---
Test Reason : SOB Blood Pressure : / mmHG Vent. Rate : 103 BPM Atrial Rate : 103 BPM P-R Int : 148 ms QRS Dur : 138 ms QT Int : 416 ms P-R-T Axes : 062 078 -04 degrees QTc Int : 544 ms Sinus tachycardia Right bundle branch block Abnormal ECG Confirmed by TODD CHIN, ADRIAN ([id number]), newspaper editor KONG TORRE ([id number]) on 07/01/2019 9:20:07 AM Referred By: DORETHA Confirmed By:ADRIAN BROOKS MD
[2019-06-28 04:57] LABS: Color, Urine Yellow (Yellow); Glucose, Dipstick Normal (Normal); Ketone-Dipstick 5 mg/dl (Negative); Leukocyte Esterase-Dipstick 500 /ul (Negative); Nitrite-Dipstick Positive (Negative); Occult Blood-Urine 150 /ul (Negative); Protein-Dipstick 100 mg/dl (Negative); Urine Clarity Sl. Cloudy (Clear); Urine Urobilinogen 4 mg/dl (Normal)
[2019-06-28 04:57] LABS: ALB/GLOB Ratio 0.6 RATIO (0.9-2.4); AST(SGOT) 28 U/L (15-37); Alanine Aminotransfer ALT/SGPT 19 U/L (16-61); Albumin, Serum 2.1 g/dL (3.2-5.0); Alkaline Phosphatase 122 U/L (45-117); Anion Gap 10 (5-15); BUN 26 mg/dL (7-18); BUN/Creat Ratio 32.4 RATIO (10-20); Calcium,Total 8.3 mg/dL (8.5-10.1); Chloride 102 mmol/L (98-107); EST Glomerular Filtration Rate 100 mL/min (>60); Est Glom Filt Rate - Afr Amer 121 mL/min (>60); Estimated Creatinine Clearance 78.86 ml/min; Globulin 3.6 g/dL (2.2-4.2); Glucose 117 mg/dL (74-106); Lipase 298 U/L (73-393); Potassium 2.6 mmol/L (3.5-5.1); Protein, Total 5.7 g/dL (6.4-8.2); Sodium Level 138 mmol/L (136-145)
[2019-06-28 05:04] LABS: Differential Comment SCANNED
[2019-06-28 05:06] LABS: Urine Bilirubin Dipstick 3 mg/dL (Negative)
[2019-06-28 05:24] LABS: Bacteria 2+ /hpf (None Seen); Red Blood Cells-Urine 10-25 SEEN /hpf (0-5); White Blood Cells 25-50 SEEN /hpf (0-5)
[2019-06-28] MEDS: proMETHazine 25 MG/ML Syringe 12.5 MG IV (05:31)
[2019-06-28] MEDS: 0.9% Normal Saline 1,000 ML 150 ML IV (05:54)
--- NOTE | 2019-06-28 06:02 | ED.DCSUM_ITS ---
- ER Visit Summary Date of Service: 06/28/19 Chief Complaint: [Weakness and possible dehydration] History of Present Illness: The patient is a 74 M [ presents to the emergency department not feeling well for last couple days. Patient currently undergoing treatment for bladder cancer and has been receiving radiation therapy. Because of the radiation therapy has had diarrhea for over a month. Diarrhea seems to be improving as he used to go about 4 5 times a day and now is only having maybe 1-2 episodes a day. Patient complains of a dry mouth and feeling like he is dehydrated. Patient also received 3 units of packed red cells yesterday for anemia. Patient denies any blood in his urine or stool. He denies any fevers. He denies chest pain. No shortness of breath. He does describe some mild aching in his abdomen and intermittent dry heaves. Patient has history of hypertension as well as hypokalemia history and history of bladder cancer.] Physical Examination: [HEENT-PERRLA, EOMI. Cranial nerves II through XII grossly intact. TMs clear. Mucous membranes slightly dry. No adenopathy. Cardiovascular-regular rate and rhythm without murmur or ectopy Lungs-clear to auscultation, chest wall stable without crepitus or subcu emphysema Abdomen-normoactive bowel sounds, soft. Patient has mild diffuse tenderness. There is no rebound, rigidity, peritoneal signs. Extremities-intact ?4, normal range of motion, normal pulses, atraumatic] Test Results: [CBC with differential white count of 8.7, hemoglobin 9.3, hematocrit 30, plates 188. Chemistry showed a sodium 138, potassium 2.6, chloride 102, CO2 26, glucose 117, BUN 26 and creatinine 0.8. LFTs unremarkable. Lipase was 298. Urinalysis was positive for 500 cassette esterase as well as nitrites and 25-50 WBCs. Patient had +2 bacteria. Urine culture ordered.] EKG obtained arrival shows sinus rhythm with a ventricular rate of 103 bpm with a right bundle branch block noted. Emergency Department Course and Treatment: [Patient received Zofran 4 mg IV followed by Phenergan 12.5 mg IV. Patient received Cipro 400 mg IV. Patient received 40 mEq of potassium chloride p.o. Patient received a liter mostly fluid bolus. Treatment Plan: [Discussed results with patient and he would prefer to go home rather than be admitted. Patient advised to push fluids. Will be given a prescription for Cipro. He has Zofran at home for persistent nausea. Patient has appointments with his oncologist in 2 days. Advised to return if worsening pain in his abdomen, fever, dehydration, or condition should worsen anyway.] Disposition: [Discharged home in stable condition] Impression: [UTI Generalized weakness Hypokalemia Mild dehydration ] This note was generated with Pro[employer] dictation software. It may contain incorrect words, spelling, and punctuation that were not noted in review of the chart prior to signing ED Disposition - Plan for ED Patient: [facility] [[facility]] -
[2019-06-28 06:06] VITALS: BP 159/93; PULSE 105; RESP 20; TEMP 36.9; O2SAT 95
[2019-06-28] MEDS: Ciprofloxacin 400 MG/200 ML BAG 200 MG IV (06:07)
--- NOTE | 2019-06-28 06:07 | ED.DEP ---
ED Disposition - Plan for ED Patient: Instructions: ED Potassium Deficiency, ED CYSTITIS Male Adult, ED Dehydration Adult Prescriptions: Ciprofloxacin [Cipro] 500 mg PO BID #14 tab Prescription Printed [facility]errals: [facility] [Primary Care Provider] - 3-5 Days Brian French MD [NON-STAFF] - 3-5 Days
[2019-06-28 06:59] VITALS: BP 161/80; PULSE 105; RESP 18; O2SAT 93
== END 2019-06-28 08:02 | disposition home or self-care (01) ==
PROVIDERS: Emergency Provider Emergency Medicine
DX: N39.0 Urinary tract infection, site not specified (principal); E87.6 Hypokalemia; E86.0 Dehydration; C67.9 Malignant neoplasm of bladder, unspecified; I10 Essential (primary) hypertension; Z79.01 Long term (current) use of anticoagulants
CPT/HCPCS: 36591; 80053; 81001; 83690; 85025; 87077; 87086; 87088; 87186; 93005; 96361; 96365; 96375; 99284; J7030; A4216; J0744; J2405

== ENCOUNTER 2019-07-22 02:01 | Emergency (ER) | payer OTHER, MEDICARE, SELFPAY ==
[2019-05-19 09:13] VITALS: BMI 19.8
[2019-07-21 12:41] VITALS: BMI 17.5
[2019-07-22 02:02] VITALS: BP 139/77; PULSE 105; RESP 16; TEMP 37; O2SAT 97; BMI 17.8
--- NOTE | 2019-07-22 02:14 | ED.VIS.GEN ---
History of Present Illness Chief Complaint: Complaint Informant: Patient Onset: Hours - 1-2 Context: Sudden Onset Timing: Continuous Quality: cannot urinate Current Severity: Moderate Maximum Severity: Moderate Worsened by: nothing Relieved by: nothing Associated Symptoms: hematuria that just started tonight Narrative: Patient states he was restarted on a blood thinner that appears to be Lovenox for DVT. He is a bladder cancer patient. He has a right-sided nephrostomy that has been draining without any difficulty or blood. He started having some hematuria tonight, quickly followed by urinary retention. Feels like he needs to urinate but is unable. Denies any pain in his side or back. No fevers or systemic symptoms. In the middle of chemotherapy course. - Past Medical History (1) Hypertension Status: Chronic (2) Bladder cancer Status: Chronic (3) Malignant small cell cancer Status: Chronic (4) DVT (deep venous thrombosis) Status: Chronic (5) Anemia of chronic disease Status: Chronic Past Medical History - Allergies and Home Meds Allergies/Adverse Reactions: Allergies No Known Allergies Allergy (Verified 07/22/19 02:06) Primary Care Physician: [place] [Primary Care Provider] - Surgical History: herniorrhaphy, - - Bladder cancer Smoking Status: Former smoker Drugs: None - Family History Maternal Family History: Family History (Last Reviewed 07/10/19 @ 08:59 by Beverly Clemons) Mother Breast cancer Father CVA (cerebral vascular accident) Hypertension Sister Hypertension Brother Hypertension Family History: Reports: Cancer, Dementia - alive age 92 Paternal Family History: Family History (Last Reviewed 07/10/19 @ 08:59 by Beverly Clemons) Mother Breast cancer Father CVA (cerebral vascular accident) Hypertension Sister Hypertension Brother Hypertension Family History: Reports: Heart Disease - age 79 Review of Systems General: Denies: Chills, Fever, Sweats Gastrointestinal: Reports: Abdominal pain. Denies: Nausea, Vomiting, Diarrhea, Melena, Hematochezia Genitourinary: Reports: Hematuria, - - urinary retention. Denies: Frequency Musculoskeletal: Denies: Neck pain, Back pain Neurological: Denies: Headache, Weakness, Numbness Physical Exam Vital Signs/Narrative: Vital Signs Temp Pulse Resp BP Pulse Ox 07/22/19 02:02 98.6 F 105 H 16 139/77 H 97 Inital Vital Signs reviewed: Yes General: Well nourished, Well developed, No Acute Distress Head: Normocephalic, Atraumatic Eyes: Perrl, EOMI ENT: Moist mucous membranes, No rhinorrhea Neck: Supple, Nontender Abdomen: Soft, Nondistended, Normal bowel sounds, Tender - suprapubic. Negative for: Guarding, Rebound tenderness : - - blood at urethral meatus w/o active bleeding Extremities: Nontender, No edema Skin: Normal color, No rash Neurological: Alert, Oriented x3, Cranial nerves II-XII grossly intact, Normal Strength, Normal Sensation Psychological: Normal affect, Normal Mood Diagnostic/Tx/Re-eval - Medical Decision Making Nursing attempted to place a Payton but were unsuccessful given multiple attempts from a 10 Bahamian to an 18 Bahamian catheter, including attempting with a coud?. I personally attempted with a new kit and 18 Bahamian Payton catheter. I was unable to pass anything past the glans penis. We bladder scanned him, estimated at 385 cc within the bladder. Discussed with Dr. Hammond with urology who agreed to see the patient and was able to gently dilate what appear to be a distal urethral stricture, resulting in successful catheterization of the patient with the Payton. Bloody urine was then quickly drained from his bladder and the patient felt much better. We irrigated it which improved it. I feel the problem was the stricture, I do not think he needs further work-up right now. Plan is for discharge home with a catheter and follow-up with urology. Patient is thankful and comfortable with that plan. ED Disposition - Plan for ED Patient: Disposition: Home or Assisted Living Diagnosis: Acute urinary retention, Other urethral stricture, male, meatal Instructions: ED Payton Catheter Care, ED Urinary Retention Male, ED Stricture Urethral Referrals: [facility] [Primary Care Provider] - Harshad Hammond MD [STAFF PHYSICIAN] - 1 Week
--- NOTE | 2019-07-22 03:46 | PCM.CONS.U ---
Problem List (1) Urethral stricture Status: Acute Qualifiers: Urethral stricture type: post-traumatic, male Urethral stricture sex-location: male urethra-meatus Qualified Code(s): N35.010 - Post-traumatic urethral stricture, male, meatal Reason for Consult Date of Consultation: 07/22/19 Reason for Consultation: Retention of urine urethral stricture History of Present Illness: The patient is a 74 year old male who is being treated for bladder cancer he has a nephrostomy tube on the right side developed urinary retention the nursing staff and the ER staff can place the catheter describe some sort of obstruction at the tip of the penis came in and saw the patient and appears to have a distal urethral stricture right at the meatus very close to the fossa navicularis, using a gentle sound I gently dilated this and then was able to place a 18 Amharic catheter into the bladder and drained about 300 cc of urine. Past Medical History Past Medical History (Chronic Problems): Chronic Problems (Last Reviewed 07/10/19 @ 08:59 by Beverly Clemons) Hypertension (Chronic) Bladder cancer (Chronic) Malignant small cell cancer (Chronic) DVT (deep venous thrombosis) (Chronic) Anemia of chronic disease (Chronic) Medical History: Medical History (Last Reviewed 07/10/19 @ 08:59 by Beverly Clemons) Bilateral tinnitus H93.13 Diverticulitis K57.92 Hypokalemia E87.6 bladder tumor resection port placement Power Port placed 06/25/18 COPD (chronic obstructive pulmonary disease) J44.9 COPD (chronic obstructive pulmonary disease) J44.9 Allergies No Known Allergies Allergy (Verified 07/22/19 02:06) Home Medications: Ambulatory Orders Medication Instructions Recorded Ensure Enlive 240 ml PO TID 07/05/18 Albuterol Inhaler [Ventolin Hfa] 1 puff PO UD PRN 12/11/18 Ondansetron HCl [Zofran] 8 mg PO BID 05/19/19 Ketoconazole/Hydrocortisone 30 gm TP DAILY PRN 05/21/19 [Hydrocort 2.5%-Ketoconazole 2%] Allopurinol 300 mg PO DAILY #30 tab 05/30/19 Bismuth Subsalicylate [Kaopectate] 30 mg PO BID PRN PRN 06/13/19 Dexamethasone [Decadron] 4 mg PO DAILY 06/27/19 Methadone HCl [(None)] 5 mg PO BID 06/27/19 Tiotropium [place] [Spiriva 18 MCG] 2 puff IH DAILY 06/27/19 Potassium Chloride [K-Dur] 20 meq PO DAILY 06/28/19 Diphenoxylate/Atrop [Lomotil] 1 tab GT 4X/DAY PRN PRN 10 Days 06/30/19 #40 tab Cholestyramine (with Sugar) 4 gm PO BID 07/02/19 [Questran Packet] Enoxaparin [Lovenox] 60 mg SUBCUT Q12@0600,1800 07/02/19 Ipratropium/Albuterol Respimat 1 puff INHALATION 4X/DAY 07/02/19 [Combivent Respimat Inhal [place]] Omeprazole [Prilosec] 20 mg PO BID 07/02/19 Loperamide [Imodium] 1 dose PO PRN PRN 07/03/19 Oxycodone [Oxyir] 5 mg PO Q4H PRN PRN 07/03/19 Chlorpromazine HCl 10 mg PO BID 07/14/19 Surgical History: Surgical History (Last Reviewed 07/10/19 @ 08:59 by Beverly Clemons) History of cystoscopy Z98.890 05/15/18 Surgical History: herniorrhaphy, - - Bladder cancer Psychiatric History: No pertinent psych hx, Anxiety Smoking Status: Former smoker Drugs: None - *Family History Maternal Family History: Family History (Last Reviewed 07/10/19 @ 08:59 by Beverly Clemons) Mother Breast cancer Father CVA (cerebral vascular accident) Hypertension Sister Hypertension Brother Hypertension History Items: Cancer, Dementia - alive age 92 Paternal Family History: Family History (Last Reviewed 07/10/19 @ 08:59 by Beverly Clemons) Mother Breast cancer Father CVA (cerebral vascular accident) Hypertension Sister Hypertension Brother Hypertension History Items: Heart Disease - age 79 Review of Systems Constitutional: Denies: Chills, Fever, Weight Change HEENT: Denies: Head Aches, Sinus Congestion, Sinus Drainage Cardiovascular: Denies: Chest Pain, Palpitations Respiratory: Denies: Cough, Shortness of breath at rest, Sputum production Gastrointestinal: Denies: Abdominal Pain, Nausea, Vomiting Genitourinary: Reports: Retention. Denies: Dysuria Musculoskeletal: Denies: Joint Pain, Joint Tenderness Skin: Denies: Rash, Wounds Neurological: Denies: Numbness, Tingling, Focal weakness Psychiatric: Denies: Anxiety, Depression, Homicidal Ideations, Suicidal Ideations Hematologic/ Lymphatic: Denies: Easy Bruising, Easy Bleeding Physical Exam - Physical Exam Vital Signs Temp 98.6 F 07/22/19 02:02 Pulse 105 H 07/22/19 02:02 Resp 16 07/22/19 02:02 BP 139/77 H 07/22/19 02:02 Pulse Ox 97 07/22/19 02:02 Intake & Output 07/20/19 07/21/19 07/22/19 23:59 23:59 23:59 Output Total 0 / 0 Balance 0 / 0 Weight: 61.235 kg Output: Urine 0 / 0 General: Alert, Oriented x3 HEENT: Atraumatic Oral: Moist Mucosa Neck: Supple Lungs: Normal air movement Cardiovascular: Regular rate Abdomen: Soft Rectal: Exam deferred Assessment/Plan All Active Problems (Last Reviewed 07/10/19 @ 08:59 by Beverly Clemons) Chest pain (Acute) Encounter for education (Acute) Urinary tract infection (Acute) Neutropenic sepsis (Acute) Neutropenia, febrile (Acute) Pancytopenia due to antineoplastic chemotherapy (Acute) Chemotherapy management, encounter for (Acute) Hiccups (Acute) Chemotherapy follow-up examination (Acute) Hematuria (Resolved) Cancer-related pain (Acute) Diarrhea due to drug (Acute) Constipation (Acute) Hypokalemia (Acute) Diarrhea (Acute) Chemotherapy management, encounter for (Acute) Urethral stricture (Acute) 74-year-old male with a history of cancer being treated with radiation also typically sees [place], was able to place a catheter after dilation of a distal meatal stricture. He can follow-up in my office in 1 week to have the catheter removed.
[2019-07-22 04:31] VITALS: BP 135/64; PULSE 80; RESP 16; O2SAT 98
[2019-07-22 04:56] VITALS: BP 135/64; PULSE 80; RESP 16; O2SAT 98
== END 2019-07-22 04:56 | disposition home or self-care (01) ==
PROVIDERS: Emergency Provider Emergency Medicine
DX: N00-N99 Diseases of the genitourinary system (principal); C67.9 Malignant neoplasm of bladder, unspecified; I10 Essential (primary) hypertension; J44.9 Chronic obstructive pulmonary disease, unspecified; Z93.6 Other artificial openings of urinary tract status; Z86.718 Personal history of other venous thrombosis and embolism; Z79.01 Long term (current) use of anticoagulants; Z87.891 Personal history of nicotine dependence
CPT/HCPCS: 51702; 99283; A4216

== ENCOUNTER → 2019-08-26 07:25 | Outpatient (CLI) | payer MEDICARE, SELFPAY ==
[2019-05-19 09:13] VITALS: BMI 19.8
[2019-07-31 10:49] VITALS: BMI 18.3
[2019-08-22 12:19] VITALS: BMI 17.9
--- NOTE | 2019-08-26 07:28 | CT_ITS ---
STUDY: CT ABDOMEN AND PELVIS WITHOUT CONTRAST REASON FOR EXAM: Male, 74 years old. Bladder cancer, assess response to chemotherapy, left neck mass, anterior left upper chest lump. Prior radiation, surgery to removed bladder tumors, hernia repair x 3, right nephrostomy tube, hypertension, COPD. RADIATION DOSAGE (If Supplied By Facility): CTDIvol = ( 12.82 ) mGy, DLP = ( 1072.20 ) mGycm TECHNIQUE: Transaxial images were obtained from the dome of the diaphragm to the symphysis pubis without oral contrast, and without intravenous contrast. Sagittal and coronal images were reconstructed. Individualized dose optimization techniques were used for this CT. COMPARISON: Comparison is made with prior examination of June 20, 2019. FINDINGS: There is a 1.6 cm x 1.2 cm noncalcified nodule in the left lower lobe. This was not seen on prior study. Minimal residual increased markings in the lingular segment of the left upper lobe. Minimal left pleural thickening. The visualized portions of the heart are within normal limits. Hepatomegaly. There now is evidence of multiple hypodense nodules throughout both lobes of the liver. This has markedly progressed as compared to prior study. This is in keeping with diffuse hepatic metastasis. Normal gallbladder and extrahepatic biliary system. Small amount of fluid is seen in the pericholecystic region. There are multiple benign calcified granulomata of the spleen. Normal pancreas. Normal bilateral adrenal glands. A right sided percutaneous nephrostomy catheter is seen. Mild degree of left hydronephrosis and proximal left hydroureter. Normal visualized stomach. Normal small intestine. There are multiple colonic diverticula consistent with diverticulosis. There is diffuse atherosclerotic calcification of the abdominal aorta, without a demonstrated aneurysm. Normal inferior vena cava. There is retroperitoneal lymphadenopathy with enlarged nodes greater than 10-15mm in the short axis. The massive retroperitoneal lymphadenopathy as regressed as compared to prior study. There is also evidence progressive mesenteric lymphadenopathy as well as periportal lymphadenopathy. Progressive pelvic lymphadenopathy. The bladder wall is diffusely thickened and irregular worse on the left side although the bladder is not adequately distended. There is evidence of increased markings in the anterior abdominal wall subcutaneous fat suggestive of a possible fluid overload. There is evidence of prior anterior abdominal wall hernia repair with mesh placement. Small amount of free fluid is seen within the pelvis. Normal osseous structures. CT/Abdomen/Pelvis W IV Cont ONLY IMPRESSION: Left lower lobe pulmonary nodule. Hepatomegaly with diffuse hepatic metastasis which has progressed as compared to prior study. Diffuse retroperitoneal lymphadenopathy which has progressed as well. Electronically Signed: Evans Pearce, at 8:41 EDT , Service support ,
--- NOTE | 2019-08-26 07:28 | CT_ITS ---
STUDY: CT SOFT TISSUE NECK WITH CONTRAST REASON FOR EXAM: Male, 74 years old. Bladder cancer, assess response to chemotherapy, left neck mass, anterior left upper chest lump. Prior radiation and amp;amp; surgery. RADIATION DOSAGE (If Supplied By Facility): CTDIvol = ( 12.82 ) mGy, DLP = ( 1072.20 ) mGycm TECHNIQUE: The patient was scanned in a multi-detector CT scanner. High resolution transaxial imaging was performed following intravenous administration of IV 100mL [id number]-300. Sagittal and coronal images were reconstructed. Individualized dose optimization techniques were used for this CT. COMPARISON: None. FINDINGS: A right-sided portacatheter is seen with the tip in the superior vena cava. There is a 2.5 cm x 2.7 cm x 5.2 cm soft tissue mass in the left supraclavicular region extending into the left lower cervical region adjacent to the left lobe of the thyroid. This most likely represents lymphadenopathy. There is also evidence of a 6.1 cm x 2.9 cm x 4.7 cm soft tissue mass in the upper anterior lateral aspect of the left chest wall. A metastatic deposit should be ruled out. On limited visualization of the mediastinum, there is evidence of the mediastinal lymphadenopathy as well as left suprahilar adenopathy. Emphysematous changes are seen in the limited evaluation of the upper lobes bilaterally. There is also evidence of fibrocalcific scarring in the right lung apex. CT/Soft Tissue Neck WITH Contrast IMPRESSION: Soft tissue mass in the left supraclavicular region extending into the left lower cervical region adjacent the left lobe of the thyroid. 6.1 cm x 2.97 x 4.7 sinus soft tissue mass in the upper anterior lateral aspect of the left chest wall. Mediastinal and left suprahilar adenopathy. Electronically Signed: Evans Pearce, at 8:45 EDT , Service support ,
== END ==
PROVIDERS: Referring Provider Internal Medicine Medical Oncology; Visit Provider Internal Medicine Medical Oncology
DX: C67.9 Malignant neoplasm of bladder, unspecified (principal); R22.1 Localized swelling, mass and lump, neck
CPT/HCPCS: 70491; 74177; Q9967; A4216

== ENCOUNTER 2019-08-26 17:19 | Inpatient (IN) | payer OTHER, MEDICARE, SELFPAY ==
[2019-05-19 09:13] VITALS: BMI 19.8
[2019-08-26] VITALS (21 sets, daily range): BP systolic 81–112; BP diastolic 45–65; PULSE 114–159; RESP 10–146; TEMP 36.8–38.8; O2SAT 94–100; BMI 18.6; BMI 19.8; BMI 19.9
--- NOTE | 2019-08-26 17:14 | RAD_ITS ---
STUDY: X-RAY CHEST REASON FOR EXAM: Male, 74 years old. patient was at infusion today, he became weak, low blood pressure, high heart rate, fever, Hx bladder CA with mets TECHNIQUE: Single AP portable view of the chest. COMPARISON: None. FINDINGS: Port on the right extends to the superior vena cava. There are monitoring devices. There are interstitial fibrotic changes of the lungs. There is pleural fibrotic thickening of the right lung apex. Normal size heart. Normal mediastinum and rozina. Normal visualized pulmonary arteries. Normal visualized aortic arch and descending thoracic aorta. There is demineralization of the osseous structures. Healed right rib fractures. There is no demonstrated abnormality of the visualized soft tissue structures of the upper abdomen. RAD/Chest 1 View (Portable) IMPRESSION: Degenerative changes, as described above. No demonstrated acute cardiopulmonary process. Electronically Signed: Saleem Acevedo MD at 19:26 EDT , Service support ,
--- NOTE | 2019-08-26 17:31 | EKG12_ITS ---
Test Reason : TACHY Blood Pressure : / mmHG Vent. Rate : 148 BPM Atrial Rate : 148 BPM P-R Int : 114 ms QRS Dur : 114 ms QT Int : 288 ms P-R-T Axes : 076 080 000 degrees QTc Int : 452 ms Sinus tachycardia Otherwise normal ECG Confirmed by ANDERSON SHAH ([id number]), proposal editor SETH BEGUM ([id number]) on 08/28/2019 2:18:04 PM Referred By: Chandra Baird Confirmed By:ANDERSON SHAH
--- NOTE | 2019-08-26 17:35 | ED.VIS.GEN ---
History of Present Illness Chief Complaint: Weakness Detail of Chief Complaint: Sent from profusion center because of hypotension Informant: Patient, Family, - - Oncologist called prior to his arrival. Oncologist wishes to talk to him regarding prognosis on . Patient is aware he has stage IV cancer. Patient informed me that he has a living will and if his heart were to stop he wants it restarted. He was told his prognosis is poor. Onset: Today Context: Sudden Onset Timing: Continuous Quality: Hypotension, generalized weakness and fever Location: Not applicable Current Severity: Severe Maximum Severity: Severe Worsened by: Nothing Relieved by: Nothing Associated Symptoms: Nothing Narrative: Patient is 74-year-old male with metastatic cancer who presents for perfusion center because of hypotension. Patient was not aware that he has elevated temperature. Patient has stage IV cancer. Prior similar symptoms: No Recent Illness/Hospitalization: Yes - Past Medical History (1) Anemia of chronic disease Status: Chronic (2) DVT (deep venous thrombosis) Status: Chronic (3) Urethral stricture Status: Acute (4) Bladder cancer Status: Chronic (5) Hypertension Status: Chronic (6) Malignant small cell cancer Status: Chronic Past Medical History - Allergies and Home Meds Allergies/Adverse Reactions: Allergies No Known Allergies Allergy (Verified 08/26/19 17:23) Primary Care Physician: [place] [place] [Primary Care Provider] - Prior records reviewed: Yes Surgical History: herniorrhaphy, - - Bladder cancer Lives: Spouse/ Significant Other Smoking Status: Former smoker Alcohol: None Drugs: None - Family History Maternal Family History: Family History (Last Reviewed 07/31/19 @ 10:47 by Beverly Clemons) Mother Breast cancer Father CVA (cerebral vascular accident) Hypertension Sister Hypertension Brother Hypertension Family History: Reports: Cancer, Dementia - alive age 92 Paternal Family History: Family History (Last Reviewed 07/31/19 @ 10:47 by Beverly Clemons) Mother Breast cancer Father CVA (cerebral vascular accident) Hypertension Sister Hypertension Brother Hypertension Family History: Reports: Heart Disease - age 79 Review of Systems General: Reports: Chills, Malaise, Sweats, Weight loss. Denies: Fever, Subjective Eyes: Denies: Visual changes - bilaterally, Blurred Vision - bilaterally ENT: Denies: Bilateral ear pain, Rhinorrhea, Sore throat Cardiovascular: Denies: Chest pain, Palpitations Respiratory: Reports: Dyspnea, Cough, - - Patient states dyspnea and cough are intermittent and chronic.. Denies: Sputum, Dyspnea on exertion, Orthopnea, Paroxysmal nocturnal dyspnea Gastrointestinal: Denies: Abdominal pain, Nausea, Vomiting, Diarrhea, Melena, Hematochezia Genitourinary: Reports: - - Patient has nephrostomy tube. The nephrostomy tube was placed May 2019. Musculoskeletal: Reports: Myalgias, Extremity Pain. Denies: Arthralgias, Neck pain, Back pain, Swelling Skin: Denies: Rash Neurological: Reports: Weakness. Denies: Headache, Parasthesia, Numbness Hematologic: Denies: Easy bruising, Easy bleeding Allergy: Denies: Uticaria, Swelling of the mouth Physical Exam Vital Signs/Narrative: Vital Signs Temp Pulse Resp BP Pulse Ox 08/26/19 17:20 101.5 F H 157 H 25 H 94/45 L 94 08/26/19 17:19 101.5 F H 157 H 26 H 94/45 L 94 Inital Vital Signs reviewed: Yes General: Well developed, Cachectic, Acute Distress Head: Normocephalic, Atraumatic Eyes: Perrl, EOMI, Pale conjunctiva. Negative for: Scleral icterus ENT: No rhinorrhea, TM's clear, Dry mucous membranes Neck: Supple, Nontender, No lymphadenopathy, No JVD Cardiovascular: Regular rhythm, No murmurs, Normal S1, Tachycardia Respiratory: No distress, CTA bilaterally, Chest nontender, Decreased Air Movement Abdomen: Soft, Nontender, Nondistended, Normal bowel sounds, No masses Rectal: Deferred Back: - - There is a nephrostomy tube noted on the right. Extremities: Nontender, Edema Skin: Rash - Patient has mottling with discoloration concerning for cyanosis due to poor perfusion. Capillary refill is 3 to 4 seconds.. Negative for: Normal color Neurological: Alert, Oriented x3, Cranial nerves II-XII grossly intact, Normal Strength, Normal Sensation. Negative for: Normal Gait Psychological: Normal affect Diagnostic/Tx/Re-eval Chest X-Ray - ED: 1 View, Read by ED Physician, - - Single view portable chest x-ray was interpreted by me at 1910. X-ray reveals port on the right side. There is hyperaeration and chronic changes noted. There is no effusion or infiltrate noted. There is no pneumothorax. Cardiac size and silhouette are unremarkable. The osseous structures reveal no acute process and specifically blastic or lytic lesions. CT/Soft Tissue Neck WITH Contrast IMPRESSION: Soft tissue mass in the left supraclavicular region extending into the left lower cervical region adjacent the left lobe of the thyroid. 6.1 cm x 2.97 x 4.7 sinus soft tissue mass in the upper anterior lateral aspect of the left chest wall. Mediastinal and left suprahilar adenopathy. Electronically Signed: Evans Pearce, at 8:45 EDT , Service support , CC: [facility]; Dr. Brian French MD [employer]: Signed CT/Abdomen/Pelvis W IV Cont ONLY IMPRESSION: Left lower lobe pulmonary nodule. Hepatomegaly with diffuse hepatic metastasis which has progressed as compared to prior study. Diffuse retroperitoneal lymphadenopathy which has progressed as well. Electronically Signed: Evans Pearce, at 8:41 EDT , Service support , 08/26/19 17:14 Chest 1 View (Portable) [RAD] Stat Laboratory Results 08/26/19 08/26/19 08/26/19 17:30 17:30 17:30 WBC 5.7 RBC 2.73 L Hgb 8.0 L Hct 27.6 L MCV 101.1 H MCH 29.3 MCHC 29.0 L RDW Std Deviation 82.5 H RDW Coeff of Anitra 22.5 H Plt Count 130 L MPV 10.4 Neut % (Auto) Not Reportable Absolute Neuts (auto) 5.3 Absolute Lymphs (auto) 0.06 L Total Counted 100 Neutrophils % (Manual) 54 Band Neutrophils % 39 H Lymphocytes % (Manual) 1 L Monocytes % (Manual) 4 Metamyelocytes % 2 H Diff Path Review May foll Hypersegmented Neuts EXPORT MANAGER Platelet Estimate SLT DEC RBC Morphology N CHROM Anisocytosis 2+ PT 20.3 H INR 1.8 APTT 31.1 Sodium 136 Potassium 4.2 Chloride 102 Carbon Dioxide 15.0 L Anion Gap 19 H BUN 54 H Creatinine 1.72 H Estim Creat Clear Calc 36.79 Est GFR (MDRD) Af Amer 50 L Est GFR (MDRD) Non-Af 42 L BUN/Creatinine Ratio 31.4 H Glucose 130 H Lactic Acid Calcium 9.0 Total Bilirubin 1.10 H AST 128 H ALT 117 H Alkaline Phosphatase 620 H Total Protein 6.1 L Albumin 2.5 L Globulin 3.6 Albumin/Globulin Ratio 0.7 L Urine Color Urine Clarity Urine pH Ur Specific [place] Urine Protein Urine Glucose (UA) Urine Ketones Urine Occult Blood Urine Nitrite Urine Bilirubin Urine Urobilinogen Ur Leukocyte Esterase Urine RBC Urine WBC Ur Squamous Epith Cells Urine Bacteria Urine Mucus COVID-19 (LEI) 08/26/19 08/26/19 08/26/19 17:30 17:43 18:00 WBC RBC Hgb Hct MCV MCH MCHC RDW Std Deviation RDW Coeff of Anitra Plt Count MPV Neut % (Auto) Absolute Neuts (auto) Absolute Lymphs (auto) Total Counted Neutrophils % (Manual) Band Neutrophils % Lymphocytes % (Manual) Monocytes % (Manual) Metamyelocytes % Diff Path Review Hypersegmented Neuts Platelet Estimate RBC Morphology Anisocytosis PT INR APTT Sodium Potassium Chloride Carbon Dioxide Anion Gap BUN Creatinine Estim Creat Clear Calc Est GFR (MDRD) Af Amer Est GFR (MDRD) Non-Af BUN/Creatinine Ratio Glucose Lactic Acid 9.8 H* Calcium Total Bilirubin AST ALT Alkaline Phosphatase Total Protein Albumin Globulin Albumin/Globulin Ratio Urine Color Yellow Urine Clarity Sl. Cloudy Urine pH 5.0 Ur Specific [place] 1.010 Urine Protein 100 H Urine Glucose (UA) Normal Urine Ketones Negative Urine Occult Blood 250 H Urine Nitrite Positive H Urine Bilirubin Negative Urine Urobilinogen Normal Ur Leukocyte Esterase 100 H Urine RBC 10-25 SEEN Urine WBC 0-5 SEEN Ur Squamous Epith Cells 0 SEEN Urine Bacteria 1+ Urine Mucus 0 SEEN COVID-19 (LEI) Cancelled Patient urine reveals occult blood, nitrites and leukoesterase. There is 10-25 RBCs and 0-5 WBCs 1+ bacteria from the nephrostomy tube. This is believed to be patient's source of septic shock. He did receive Rocephin as previously documented. - EKG Initial EKG Interpretation: Sinus Tachycardia - Tachycardia with ventricular rate 148. TX interval 114 ms. QRS duration 114 ms. QT duration 288 ms. [place] is normal. There is an RR prime in V1. There is no evidence of ischemic changes. Prior: Changed - Medical Decision Making Patient has abnormal vital signs with a mean arterial pressure of 60. Since there is concern for sepsis due to urologic source a 30 cc/kg bolus of normal saline was ordered. Rocephin was ordered as well. Propria cultures were ordered as well as blood work. Doubt patient has COVID. Spoke to patient regarding CODE STATUS. He states he has a living will. He was told based on his past medical history and present hemodynamic instability his prognosis was poor. He understands this and states he wishes everything to be done including CPR and intubation. Patient's most recent blood pressure reveals a mean arterial pressure of 61. He has not received his 30 cc/kg bolus. If his pressure remains low will start on Levophed drip. Patient has been told based on his lactate, his clinical presentation is mortality rate is high. Patient CODE STATUS was discussed at length after family and patient spoke with oncologist. Patient is DNR Comfort Care arrest. A medical orders for life-sustaining treatment was completed. Patient specifically requested no CPR and no intubation. Pressors, fluids, antibiotics and if needed nutrition and fluids are acceptable as long as beneficial and not a burden to the patient. Time to complete documentation for CODE STATUS 20 minutes - Critical Care Time Critical care time (excluding procedures): 30-74 minutes - Care time 37 minutes, which included history, past medical history, review of outpatient diagnostic studies, interpretation of lab results, treatment for septic shock and discussion with patient initially then patient and and patient, and daughter regarding CODE STATUS. Daughter requested that Dr. Singh be paged and would like to speak with him. ED Disposition - Plan for ED Patient: Disposition: Acute Care [facility] Diagnosis: Septic shock, Urinary tract infection, Metastatic small cell carcinoma bladder, Acute renal insufficiency [facility] [[facility] Provider] -
[2019-08-26] MEDS: 0.9% Normal Saline 1,000 ML 999 ML IV ×2 (17:45→18:36)
[2019-08-26 17:49] LABS: Hematocrit 27.6 % (40-54); Mean Corpuscular Hgb 29.3 pg (27.0-32.0); Mean Corpuscular Volume 101.1 fL (80-94); Mean Platelet Vol. 10.4 fl (6.2-12.0); POSITIVE DIFFERENTIAL YES; POSITIVE MORPHOLOGY YES; Platelet Count 130 K/mm3 (150-450); RBC Distribution Width CV 22.5 % (11.6-14.6); RBC Distribution Width SD 82.5 fl (35.1-43.9); Red Blood Count 2.73 M/mm3 (4.6-6.2); White Blood Count 5.7 K/mm3 (4.4-11.0)
[2019-08-26 18:10] LABS: ALB/GLOB Ratio 0.7 RATIO (0.9-2.4); AST(SGOT) 128 U/L (15-37); Alanine Aminotransfer ALT/SGPT 117 U/L (16-61); Albumin, Serum 2.5 g/dL (3.2-5.0); Alkaline Phosphatase 620 U/L (45-117); Anion Gap 19 (5-15); BUN 54 mg/dL (7-18); BUN/Creat Ratio 31.4 RATIO (10-20); Chloride 102 mmol/L (98-107); Creatinine, Serum 1.72 mg/dL (0.70-1.30); EST Glomerular Filtration Rate 42 mL/min (>60); Est Glom Filt Rate - Afr Amer 50 mL/min (>60); Estimated Creatinine Clearance 36.79 ml/min; Globulin 3.6 g/dL (2.2-4.2); Glucose 130 mg/dL (74-106); Potassium 4.2 mmol/L (3.5-5.1); Protein, Total 6.1 g/dL (6.4-8.2); Sodium Level 136 mmol/L (136-145)
[2019-08-26 18:21] LABS: Mucous, Urine 0 SEEN /hpf (<or=2+); Squamous Epithelial Cells - UA 0 SEEN /hpf (0-5)
[2019-08-26 18:26] LABS: Lactic Acid 9.8 mmol/L (0.4-1.9)
[2019-08-26 18:27] LABS: Differential Indicated MANUAL DIFF
[2019-08-26 18:34] LABS: International Normalized Ratio 1.8; Partial Thromboplast Time 31.1 Seconds (24.1-36.2); Prothrombin Time (Protime)PT. 20.3 SECONDS (11.7-14.9)
[2019-08-26 18:40] LABS: Lymphocyte 1 % (19-41); Metamyelocyte 2 % (0-1); Monocyte 4 % (0-10); Neutrophil-Band 39 % (0-5); Neutrophil-Segmented 54 % (47-70); Total Cells Counted 100 (MANUAL DIFF)
[2019-08-26 18:41] LABS: Anisocytosis 2+; Platelet Estimate SLT DEC (ADEQ); Red Cell Morphology N CHROM NORMAL (NORM C&C)
[2019-08-26 18:44] LABS: Absolute Lymphocyte Count 0.06 X10^3/uL (0.83-4.51); Absolute Neutrophil Count 5.3 X10^3/uL (2.0-7.7)
--- NOTE | 2019-08-26 18:52 | ED.RN ---
pharmacy called at 1840 for jude
[2019-08-26 18:58] LABS: Color, Urine Yellow (Yellow); Glucose, Dipstick Normal (Normal); Ketone-Dipstick Negative (Negative); Leukocyte Esterase-Dipstick 100 /ul (Negative); Nitrite-Dipstick Positive (Negative); Occult Blood-Urine 250 /ul (Negative); Protein-Dipstick 100 mg/dl (Negative); Urine Bilirubin Dipstick Negative (Negative); Urine Clarity Sl. Cloudy (Clear); Urine Urobilinogen Normal (Normal)
[2019-08-26 19:03] LABS: Red Blood Cells-Urine 10-25 SEEN /hpf (0-5)
[2019-08-26 19:04] LABS: Bacteria 1+ /hpf (None Seen); White Blood Cells 0-5 SEEN /hpf (0-5)
[2019-08-26] MEDS: Ceftriaxone 1 GM/50 ML BAG IV ×2 (19:04→21:11)
[2019-08-26] MEDS: 0.9% Normal Saline 1,000 ML 500 ML IV (19:50)
[2019-08-26] MEDS: Ondansetron 4 MG/2 ML Vial IV (20:12)
[2019-08-26] MEDS: Acetaminophen 500 MG Tablet 1000 MG PO (21:28)
[2019-08-26 21:42] LABS: Reflex Lactate? Y
--- NOTE | 2019-08-26 21:45 | HP.PCM_ITS ---
Problem List (1) Elevated LFTs Status: Acute (2) Acute complicated UTI Status: Acute (3) Septic shock Status: Acute (4) Hypertension Status: Chronic Qualifiers: Hypertension type: essential hypertension (5) Bladder cancer Status: Chronic (6) Malignant small cell cancer Status: Chronic (7) Cancer-related pain Status: Chronic (8) DVT (deep venous thrombosis) Status: Chronic Qualifiers: DVT location: lower extremity Affected thrombotic vein of extremity: femoral Chronicity: acute Laterality: right Qualified Code(s): I82.411 - Acute embolism and thrombosis of right femoral vein (9) Anemia of chronic disease Status: Chronic (10) Urethral stricture Status: Chronic Qualifiers: Urethral stricture type: post-traumatic, male Urethral stricture sex- location: male urethra-meatus Qualified Code(s): N35.010 - Post-traumatic urethral stricture, male, meatal History of Present Illness Date of Admission: 08/26/19 Chief Complaint: Dizziness, low blood pressure. The patient is a 74 year old M with past medical history as mentioned above was sent to the emergency department from the infusion center because of low blood pressure. Today, patient came to the outpatient infusion center for IV fluids because he has been getting dehydrated very quickly while on chemotherapy and while he was there at the infusion center, nursing staff found that he has low blood pressure and he was tachycardic. He was sent to ED for evaluation. According to the patient's daughter, patient felt dizzy and short of breath at that time. Patient reported that he was short of breath and dizzy which was transient. Patient denied any syncope or presyncope. He denied chest pain, palpitation or loss of consciousness. He denied cough or sputum production. He denied fever or chills. 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 History of DVT and he has been on Eliquis. He had a history of chronic pain syndrome related to his cancer and he has been on methadone and OxyIR and his pain has been under fair control. In the emergency department, patient was febrile, tachycardic, hypotensive, dyspneic and tachypneic, required up to 4 L of oxygen. He received bolus of IV fluids 30 cc/kg and his blood pressure improved temporarily and then started to come down again. He was started on IV Levophed drip. His routine blood work was remarkable for hemoglobin of 8 g/dL, platelet count of 130,000, BUN is 54, creatinine is 1.72. Lactic acid was 9.8. LFT revealed slightly elevated total bilirubin and liver transaminases as well as alkaline phosphatase. Urinalysis revealed cloudy urine, positive for nitrite and leukocyte esterase, there was 0-5 WBCs and 1+ bacteria. Chest x-ray showed no acute findings. COVID-19 testing came back negative. EKG revealed sinus tachycardia, no acute ischemic changes or cardiac arrhythmias. Patient is being admitted for septic shock due to acute complicated UTI as well as acute kidney injury and elevated LFT. Past Medical History Past Medical History (Chronic Problems): Chronic Problems (Last Updated 08/26/19 @ 21:[address] Chandra Baird MD) Hypertension (Chronic) Bladder cancer (Chronic) Malignant small cell cancer (Chronic) Cancer-related pain (Chronic) DVT (deep venous thrombosis) (Chronic) Anemia of chronic disease (Chronic) Urethral stricture (Chronic) Medical History: Medical History (Last Updated 08/26/19 @ 21:[address] Chandra Baird MD) bladder tumor resection port placement Power Port placed 06/25/18 COPD (chronic obstructive pulmonary disease) J44.9 COPD (chronic obstructive pulmonary disease) J44.9 Allergies No Known Allergies Allergy (Verified 08/26/19 17:23) Home Medications: Ambulatory Orders Medication Instructions Recorded Ensure Enlive 240 ml PO TID 07/05/18 Ondansetron HCl [Zofran] 8 mg PO DAILY PRN PRN 05/19/19 Dexamethasone [Decadron] 4 mg PO DAILY 06/27/19 Methadone HCl [(None)] 5 mg PO BID 06/27/19 Tiotropium [place] [Spiriva 18 MCG] 2 puff IH DAILY 06/27/19 Potassium Chloride [K-Dur] 20 meq PO DAILY 06/28/19 Ipratropium/Albuterol Respimat 1 puff INHALATION 4X/DAY 07/02/19 [Combivent Respimat Inhal [place]] Omeprazole [Prilosec] 20 mg PO DAILY 07/02/19 Loperamide [Imodium] 2 mg PO DAILY PRN PRN 07/03/19 Oxycodone [Oxyir] 5 mg PO Q4H PRN PRN 07/03/19 Diphenoxylate/Atrop [Lomotil] 1 tab GT 4X/DAY PRN PRN 10 Days 08/01/19 #40 tab Apixaban [Eliquis] 5 mg PO BID 08/04/19 Allopurinol 300 mg PO DAILY 08/26/19 Surgical History: Surgical History (Last Reviewed 07/31/19 @ 10:47 by Beverly Clemons) History of cystoscopy Z98.890 05/15/18 Surgical History: herniorrhaphy, - - Bladder cancer Psychiatric History: No pertinent psych hx Lives: Spouse/ Significant Other Smoking Status: Former smoker Alcohol: None Drugs: None - *Family History Maternal Family History: Family History (Last Reviewed 08/26/19 @ 21:[address] Chandra Baird MD) Mother Breast cancer Father CVA (cerebral vascular accident) Hypertension Sister Hypertension Brother Hypertension History Items: Cancer, Dementia - alive age 92 Paternal Family History: Family History (Last Reviewed 08/26/19 @ 21:[address] Chandra Baird MD) Mother Breast cancer Father CVA (cerebral vascular accident) Hypertension Sister Hypertension Brother Hypertension Review of Systems Constitutional: Reports: Anorexia, Weakness. Denies: Chills, Fever Eyes: Denies: Blurred vision, Double vision, Drainage, Redness HEENT: Denies: Difficulty Hearing, Ear Pain, Eye Pain, Nasal Congestion, Sore Throat Cardiovascular: Reports: Light Headedness. Denies: Chest Pain, Chest Pressure, Chest Tightness, Palpitations, Syncope Respiratory: Reports: Shortness of Breath. Denies: Cough, Pleuritic Pain, Sputum production, Wheezing Gastrointestinal: Denies: Abdominal Pain, Constipation, Diarrhea, Nausea, Vomiting Genitourinary: Denies: Dysuria, Frequency, Hematuria Musculoskeletal: Denies: Arm Pain, Back Pain, Foot Pain Skin: Denies: Dryness, Rash Neurological: Denies: Balance problems, Change in Speech, Slurred speech, Confusion, Focal weakness, Headaches, Numbness Psychiatric: Denies: Anxiety, Depression Endocrine: Denies: Change in Body Habitus, Polydipsia, Polyuria VTE Information - Inpt Only VTE Present on Admission: No VTE Mechan Device Prophylaxis: None VTE Pharm Prophylaxis ordered?: No Patient Problems: Active and Suspected Problems (Last Updated 08/26/19 @ 21:[address] Chandra Baird MD) Elevated LFTs (Acute) Acute complicated UTI (Acute) Septic shock (Acute) - Physical Exam Vitals/I&O's: Vital Signs Temp Pulse Resp BP Pulse Ox 101.9 F H 122 H 20 H 105/58 L 98 08/26/19 21:07 08/26/19 21:33 08/26/19 21:33 08/26/19 21:33 08/26/19 21:33 Oxygen Flow Rate (L/min) 4 Oxygen Delivery Method Nasal Cannula Weight: 149 lb 14.629 oz Body Mass Index (BMI) 19.8 Intake and Output for Last 24 Hours 08/24/19 08/25/19 08/26/19 23:59 23:59 23:59 Intake Total 2899.15 / 2899.15 Balance 2899.15 / 2899.15 General: Alert, Oriented x3, Cooperative, - - Chronically ill patient, cachectic, mildly short of breath. HEENT: Atraumatic, PERRLA, EOMI, Normocephalic Oral: No Gingival or Mucosal Lesions/ Ulcerations, Dry Mucosa Neck: Supple, No JVD, Negative Carotid Bruits, Trachea Midline, Thyroid Normal Size and Texture Lungs: Clear to auscultation, No rhonchi, No wheeze, No rales, Diminished Cardiovascular: Regular rate, Regular Rhythm, Normal S1, Normal S2, PMI Normal, Tachycardic Abdomen: Bowel Sounds Present, Soft, Non Tender, Non-Distended, No Hepato-spl enomegaly Extremities: No clubbing, No cyanosis, Edema - ++ Edema. Skin: No rashes, No breakdown Lymphatic: No Cervical, Supraclavicular, or Inguinal Adenopathy Neurological: Cranial nerves II-XII grossly intact, Motor Exam 5/5 strength throughout Psych/Mental Status: Normal Affect, Appropriate, Alert and oriented to time, place, person, mood and affect Microbiology Past 72 Hours 08/26/19 17:43 Mucosa - Nasopharyngeal Coronavirus COVID-19 PCR - Final Laboratory Results 08/26/19 17:30: WBC 5.7, RBC 2.73 L, Hgb 8.0 L, Hct 27.6 L, MCV 101.1 H, MCH 29.3, MCHC 29.0 L, RDW Std Deviation 82.5 H, RDW Coeff of Anitra 22.5 H, Plt Count 130 L, MPV 10.4, Neut % (Auto) Not Reportable, Absolute Neuts (auto) 5.3, Absolute Lymphs (auto) 0.06 L, Total Counted 100, Neutrophils % (Manual) 54, Band Neutrophils % 39 H, Lymphocytes % (Manual) 1 L, Monocytes % (Manual) 4, Metamyelocytes % 2 H, Diff Path Review May foll, Hypersegmented Neuts LAW EXAMINER, Platelet Estimate SLT DEC, RBC Morphology N CHROM, Anisocytosis 2+ 08/26/19 17:30: PT 20.3 H, INR 1.8, APTT 31.1 08/26/19 17:30: Sodium 136, Potassium 4.2, Chloride 102, Carbon Dioxide 15.0 L, Anion Gap 19 H, BUN 54 H, Creatinine 1.72 H, Estim Creat Clear Calc 36.79, Est GFR (MDRD) Af Amer 50 L, Est GFR (MDRD) Non-Af 42 L, BUN/Creatinine Ratio 31.4 H , Glucose 130 H, Calcium 9.0, Total Bilirubin 1.10 H, AST 128 H, ALT 117 H, Alkaline Phosphatase 620 H, Total Protein 6.1 L, Albumin 2.5 L, Globulin 3.6, Albumin/Globulin Ratio 0.7 L 08/26/19 17:30: Lactic Acid 9.8 H* 08/26/19 17:43: COVID-19 (LEI) Cancelled 08/26/19 18:00: Urine Color Yellow, Urine Clarity Sl. Cloudy, Urine pH 5.0, Ur Specific [place] 1.010, Urine Protein 100 H, Urine Glucose (UA) Normal, Urine Ketones Negative, Urine Occult Blood 250 H, Urine Nitrite Positive H, Urine Bilirubin Negative, Urine Urobilinogen Normal, Ur Leukocyte Esterase 100 H, Urine RBC 10-25 SEEN, Urine WBC 0-5 SEEN, Ur Squamous Epith Cells 0 SEEN, Urine Bacteria 1+, Urine Mucus 0 SEEN Clinical Impression(s) from Imaging Studies Chest X-Ray 08/26/19 17:14 IMPRESSION: Degenerative changes, as described above. No demonstrated acute cardiopulmonary process. Electronically Signed: Saleem Acevedo MD at 19:26 EDT , Service support , Current Medications Norepinephrine Bitartrate 8 mg (/ Sodium Chloride) 250 mls @ 9.375 mls/hr CONT INF .[id number] [facility]; Protocol Last Admin: 08/26/19 21:07 Dose: 5 mcg/min, 9.4 mls/hr Documented by: Assessment/Plan All Active Problems (Last Updated 08/26/19 @ 21:[address] Chandra Baird MD) Elevated LFTs (Acute) Acute complicated UTI (Acute) Septic shock (Acute) This is a 74 years old male patient presented to the emergency room from the infusion center because of low blood pressure and tachycardia, found to have fever and UTI, complicated by septic shock, acute kidney injury and elevated LFT. #1 septic shock: Secondary to UTI as below. Lactic acid was 9.8. Patient was febrile, tachycardic, hypotensive which did not respond to IV fluid bolus, started on IV Levophed drip. Chest x-ray showed no acute findings. EKG revealed sinus tachycardia, otherwise unremarkable. Patient did have a history of septic shock secondary to UTI in the past. Absolute neutrophil count is normal. Patient has been on Decadron daily for the last couple of months. Plan admit to ICU, complete bedrest, critical care monitoring, maintenance IV fluids, repeat lactic acid in 3 hours, blood culture, urine culture, start IV Zosyn, stress dose of IV hydrocortisone, Tylenol PRN, Zofran PRN, repeat CBC and CMP tomorrow morning, critical care consult, PT OT evaluation and treatment when appropriate. #2 acute complicated UTI: Patient had regular stricture, status post right nephrostomy tube. Urine analysis reviewed. Previous urine culture revealed E. coli and Pseudomonas aeruginosa. Plan as above, start IV Zosyn, IV fluids as above, urine culture, blood culture, stress dose of IV steroids. #3 acute kidney injury: Due to septic shock. Baseline kidney function is no rmal. Admission BUN is 54, creatinine is 1.72. Plan as above, IV fluids, vasopressors, input output chart, repeat BMP tomorrow morning. #4 elevated LFT: Likely due to shock liver. Patient denied any right upper quadrant abdominal pain. Plan to treat underlying cause, repeat LFT tomorrow morning. 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 Patient will follow-up with oncology upon discharge. #6 COPD: DuoNeb every 6 hours, albuterol PRN, oxygen by nasal cannula to keep O2 saturation more than 92%. #7 history of DVT: Continue Eliquis. #8 chronic pain syndrome: Related to cancer: Continue methadone and OxyIR PRN. #9 chronic anemia: Due to cancer and chemotherapy. Baseline hemoglobin is been around 8 to 10 g/dL over the last 6 months. Admission hemoglobin is 8 g/dL. Plan to monitor, transfuse if hemoglobin is than 8 g/dL. No evidence of active bleeding. #10 CODE STATUS: DNR CCA, no intubation. Discussed with the patient. #11 DVT prophylaxis: Continue Eliquis. This note was generated with [employer] dictation software. It may contain incorrect words, spelling, and punctuation that were not noted in checking the note before signing. Inpatient E&M: [id number] Init Hosp L3
[2019-08-26 22:43] LABS: Lactic Acid 2.8 mmol/L (0.4-1.9)
[2019-08-26] MEDS: Hydrocortisone Sod Succinate 100 MG/2 ML Vial 50 MG IV (23:56)
[2019-08-26] MEDS: APIXABAN 5 MG TABLET PO (23:56)
[2019-08-27] VITALS (59 sets, daily range): BP systolic 84–134; BP diastolic 52–99; PULSE 81–114; RESP 10–25; TEMP 36.4–37.4; O2SAT 96–100; BMI 20.2
[2019-08-27] MEDS: 0.9% Normal Saline 1,000 ML 100 ML IV ×2 (00:01→10:09)
--- NOTE | 2019-08-27 00:17 | EKG12_ITS ---
Test Reason : CP Blood Pressure : / mmHG Vent. Rate : 117 BPM Atrial Rate : 117 BPM P-R Int : 128 ms QRS Dur : 128 ms QT Int : 344 ms P-R-T Axes : 068 066 -53 degrees QTc Int : 479 ms Sinus tachycardia Right bundle branch block Abnormal ECG No previous ECGs available Confirmed by JORGE A CHIN, YUMIKO ([id number]), medical editor SETH BEGUM ([id number]) on 09/01/2019 11:36:18 AM Referred By: Chandra Baird Confirmed By:SYL JULES MD
[2019-08-27] MEDS: Hydrocortisone Sod Succinate 100 MG/2 ML Vial 50 MG IV ×4 (05:17→23:02)
[2019-08-27 05:30] LABS: Hemoglobin 6.4 g/dL (13.0-16.5); Mean Corp Hgb Conc 30.5 g/dL (32-36); Mean Corpuscular Hgb 29.6 pg (27.0-32.0); Mean Corpuscular Volume 97.2 fL (80-94); Mean Platelet Vol. 11.4 fl (6.2-12.0); POSITIVE COUNT YES; POSITIVE DIFFERENTIAL YES; POSITIVE MORPHOLOGY YES; Platelet Count 97 K/mm3 (150-450); RBC Distribution Width CV 22.4 % (11.6-14.6); RBC Distribution Width SD 78.3 fl (35.1-43.9); Red Blood Count 2.16 M/mm3 (4.6-6.2); White Blood Count 18.6 K/mm3 (4.4-11.0)
[2019-08-27 05:41] LABS: Differential Indicated MANUAL DIFF
[2019-08-27 05:49] LABS: ALB/GLOB Ratio 0.6 RATIO (0.9-2.4); AST(SGOT) 136 U/L (15-37); Alanine Aminotransfer ALT/SGPT 127 U/L (16-61); Albumin, Serum 1.9 g/dL (3.2-5.0); Alkaline Phosphatase 358 U/L (45-117); Anion Gap 9 (5-15); BUN 53 mg/dL (7-18); BUN/Creat Ratio 32.5 RATIO (10-20); Calcium,Total 7.6 mg/dL (8.5-10.1); Chloride 105 mmol/L (98-107); Creatinine, Serum 1.63 mg/dL (0.70-1.30); EST Glomerular Filtration Rate 44 mL/min (>60); Est Glom Filt Rate - Afr Amer 54 mL/min (>60); Estimated Creatinine Clearance 39.16 ml/min; Globulin 3.1 g/dL (2.2-4.2); Glucose 106 mg/dL (74-106); Potassium 4.2 mmol/L (3.5-5.1); Sodium Level 136 mmol/L (136-145)
[2019-08-27 06:31] LABS: Lymphocyte 2 % (19-41); Metamyelocyte 9 % (0-1); Monocyte 5 % (0-10); Myelocyte 3 (0-0); Neutrophil-Band 37 % (0-5); Neutrophil-Segmented 44 % (47-70); Total Cells Counted 100 (MANUAL DIFF)
[2019-08-27 06:33] LABS: Lymphocyte # 0.37 X10^3/ul (4.0); Neutrophil # 15.04 X10^3/uL (2.7-7.7)
[2019-08-27 06:34] LABS: Absolute Lymphocyte Count 0.37 X10^3/uL (0.83-4.51)
[2019-08-27 06:35] LABS: Dohle Bodies RARE
[2019-08-27 06:36] LABS: Anisocytosis RARE; Hypochromasia 1+; Polychromasia RARE
[2019-08-27 06:37] LABS: Platelet Estimate MOD DEC (ADEQ)
--- NOTE | 2019-08-27 08:17 | CON.PCM_ITS ---
Problem List (1) Septic shock Status: Acute (2) Urinary tract infection Status: Acute Qualifiers: Urinary tract infection type: catheter-associated UTI Indwelling urinary catheter type: nephrostomy catheter Encounter type: initial encounter Qualified Code(s): T83.512A - Infection and inflammatory reaction due to nephrostomy catheter, initial encounter; N39.0 - Urinary tract infection, site not specified (3) Acute renal insufficiency Status: Acute (4) Acute complicated UTI Status: Acute (5) Hypertension Status: Chronic Qualifiers: Hypertension type: essential hypertension (6) Bladder cancer Status: Chronic (7) Malignant small cell cancer Status: Chronic (8) DVT (deep venous thrombosis) Status: Chronic Qualifiers: DVT location: lower extremity Affected thrombotic vein of extremity: femoral Chronicity: acute Laterality: right Qualified Code(s): I82.411 - Acute embolism and thrombosis of right femoral vein (9) Anemia of chronic disease Status: Chronic (10) Urethral stricture Status: Chronic Qualifiers: Urethral stricture type: post-traumatic, male Urethral stricture sex- location: male urethra-meatus Qualified Code(s): N35.010 - Post-traumatic urethral stricture, male, meatal Reason for Consult Date of Consultation: 08/27/19 Reason for Consultation: Septic shock History of Present Illness: The patient is a 74 year old M, with past medical history listed below, who presented to [facility] on 08/26/2019 at the request of the infusion center secondary to hypotension. Patient reportedly has stage IV cancer and was recently told that he had some metastasis. When patient had shown up to the infusion center, he was noted to be hypotensive with fever. Patient was sent to the ER for further evaluation. In the ER, patient was noted to be tachycardic at 148 bpm in sinus rhythm. Patient was also noted to be hypotensive, so was given a 30 cc/kg normal saline bolus and Rocephin. Patient responded appropriately to therapy. Patient did have a conversation with ER staff about CODE STATUS and reported a DNR Comfort Care arrest without intubation. Patient was transferred to the intensive care unit for further evaluation. In the intensive care unit, patient has been on and off Levophed therapy to maintain blood pressures. Patient continues to report weakness, but overall feels somewhat better. No active blood loss has been reported. Patient does state that he would want to address the acute illness if it is reversible. Patient states that he had felt weak for several days. Patient had attributed this to his interventions for cancer. Patient had noticed that he was having decreased urinary output. Patient states that he normally changes/empties his nephrostomy bag and can still urinate, but over the last 48 hours this has become difficult. Patient was unclear when the fever started. Patient is not reporting any respiratory complaints outside of an intermittent dry cough. Patient did not report any nausea, vomiting or diarrhea. Patient does report that he was diagnosed with a DVT recently and has been on Eliquis therapy. Patient does have chronic pain for which she takes methadone and OxyIR. Review of systems otherwise negative from a constitutional, HEENT, respiratory, cardiovascular, GI, genitourinary, musculoskeletal, skin, neurologic, psychiatric and hematologic system unless stated above. Past Medical History Past Medical History (Chronic Problems): Chronic Problems (Last Updated 08/26/19 @ 21:[address] Chandra Baird MD) Hypertension (Chronic) Bladder cancer (Chronic) Malignant small cell cancer (Chronic) Cancer-related pain (Chronic) DVT (deep venous thrombosis) (Chronic) Anemia of chronic disease (Chronic) Urethral stricture (Chronic) Medical History: Medical History (Last Updated 08/26/19 @ 21:[address] Chandra Baird MD) bladder tumor resection port placement Power Port placed 06/25/18 COPD (chronic obstructive pulmonary disease) J44.9 COPD (chronic obstructive pulmonary disease) J44.9 Allergies No Known Allergies Allergy (Verified 08/26/19 17:23) Home Medications: Ambulatory Orders Medication Instructions Recorded Ensure Enlive 240 ml PO TID 07/05/18 Ondansetron HCl [Zofran] 8 mg PO TID PRN PRN 05/19/19 Dexamethasone [Decadron] 4 mg PO DAILY 06/27/19 Methadone HCl [(None)] 5 mg PO BID 06/27/19 Tiotropium [place] [Spiriva 18 MCG] 2 puff IH DAILY 06/27/19 Potassium Chloride [K-Dur] 20 meq PO DAILY 06/28/19 Ipratropium/Albuterol Respimat 1 puff INHALATION 4X/DAY 07/02/19 [Combivent Respimat Inhal [place]] Omeprazole [Prilosec] 20 mg PO DAILY 07/02/19 Loperamide [Imodium] 2 mg PO 4X/DAY PRN PRN 07/03/19 Oxycodone [Oxyir] 5 mg PO Q4H PRN PRN 07/03/19 Diphenoxylate/Atrop [Lomotil] 1 tab GT 4X/DAY PRN PRN 10 Days 08/01/19 #40 tab Apixaban [Eliquis] 5 mg PO BID 08/04/19 Allopurinol 300 mg PO DAILY 08/26/19 Surgical History: Surgical History (Last Reviewed 07/31/19 @ 10:47 by Beverly Clemons) History of cystoscopy Z98.890 05/15/18 Surgical History: herniorrhaphy, - - Bladder cancer Psychiatric History: No pertinent psych hx Lives: Spouse/ Significant Other Smoking Status: Former smoker Alcohol: None Drugs: None - *Family History Maternal Family History: Family History (Last Reviewed 08/26/19 @ 21:[address] Chandra Baird MD) Mother Breast cancer Father CVA (cerebral vascular accident) Hypertension Sister Hypertension Brother Hypertension History Items: Cancer, Dementia - alive age 92 Paternal Family History: Family History (Last Reviewed 08/26/19 @ 21:[address] Chandra Baird MD) Mother Breast cancer Father CVA (cerebral vascular accident) Hypertension Sister Hypertension Brother Hypertension History Items: Heart Disease - age 79 Review of Systems Comment: See HPI Patient Problems: Active and Suspected Problems (Last Updated 08/26/19 @ 21:[address] Chandra Baird MD) Septic shock (Acute) Urinary tract infection (Acute) Acute renal insufficiency (Acute) Elevated LFTs (Acute) Acute complicated UTI (Acute) Septic shock (Acute) Objective: Chest x-ray was personally reviewed and shows no acute infiltrates. - Physical Exam Vitals/I&O's: Vital Signs Temp Pulse Resp BP Pulse Ox 36.4 C L 95 12 123/62 H 98 08/27/19 06:00 08/27/19 08:00 08/27/19 06:00 08/27/19 06:45 08/27/19 06:00 Oxygen Flow Rate (L/min) 2 Oxygen Delivery Method Room Air Weight: 69.8 kg Body Mass Index (BMI) 19.9 Intake and Output for Last 24 Hours 08/25/19 08/26/19 08/27/19 23:59 23:59 23:59 Intake Total 3213.91 / 3216.26 946.65 / 946.65 Output Total 350 / 350 Balance 3213.91 / 3216.26 596.65 / 596.65 General: Alert, Oriented x3, Cooperative, No apparent distress, - - Cachectic. No conversational dyspnea. HEENT: Atraumatic, PERRLA, EOMI, Normocephalic, - - No scleral icterus or injection noted Oral: No Gingival or Mucosal Lesions/ Ulcerations, Dry Mucosa Neck: Supple, No JVD, No Nodes, No Nuchal Rigidity, - - Port visible subcutaneously Lungs: Clear to auscultation, Normal air movement, No rhonchi, No wheeze, No rales Cardiovascular: Regular Rhythm, Normal S1, Normal S2, No murmurs, No rub noted, No Gallop, Tachycardic Abdomen: Bowel Sounds Present, Soft, Non Tender, Non-Distended Extremities: No clubbing, No cyanosis, Diminished Peripheral Pulses, Edema - 3+ right lower extremity, 2+ left lower extremity Skin: No rashes, No breakdown Musculoskeletal: No Tenderness to Palpation of Joints or Extremities Lymphatic: No Cervical, Supraclavicular, or Inguinal Adenopathy Neurological: Cranial nerves II-XII grossly intact, Neuro grossly intact, Motor Exam 5/5 strength throughout Psych/Mental Status: Alert and oriented to time, place, person, mood and affect Microbiology Past 72 Hours 08/26/19 17:30 Blood Culture (Wb) - Other Blood Culture - Preliminary 08/26/19 15:43 Blood Culture (Wb) - Venous Blood Culture - Preliminary 08/26/19 17:43 Mucosa - Nasopharyngeal Coronavirus COVID-19 PCR - Final Laboratory Results 08/26/19 17:30: WBC 5.7, RBC 2.73 L, Hgb 8.0 L, Hct 27.6 L, MCV 101.1 H, MCH 29.3, MCHC 29.0 L, RDW Std Deviation 82.5 H, RDW Coeff of Anitra 22.5 H, Plt Count 130 L, MPV 10.4, Neut % (Auto) Not Reportable, Absolute Neuts (auto) 5.3, Absolute Lymphs (auto) 0.06 L, Total Counted 100, Neutrophils % (Manual) 54, Band Neutrophils % 39 H, Lymphocytes % (Manual) 1 L, Monocytes % (Manual) 4, Metamyelocytes % 2 H, Diff Path Review May foll, Hypersegmented 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[employer], Platelet Estimate SLT DEC, RBC Morphology N CHROM, Anisocytosis 2+ 08/26/19 17:30: PT 20.3 H, INR 1.8, APTT 31.1 08/26/19 17:30: Sodium 136, Potassium 4.2, Chloride 102, Carbon Dioxide 15.0 L, Anion Gap 19 H, BUN 54 H, Creatinine 1.72 H, Estim Creat Clear Calc 36.79, Est GFR (MDRD) Af Amer 50 L, Est GFR (MDRD) Non-Af 42 L, BUN/Creatinine Ratio 31.4 H , Glucose 130 H, Calcium 9.0, Total Bilirubin 1.10 H, AST 128 H, ALT 117 H, Alkaline Phosphatase 620 H, Total Protein 6.1 L, Albumin 2.5 L, Globulin 3.6, Albumin/Globulin Ratio 0.7 L 08/26/19 17:30: Lactic Acid 9.8 H* 08/26/19 17:43: COVID-19 (LEI) Cancelled 08/26/19 18:00: Urine Color Yellow, Urine Clarity Sl. Cloudy, Urine pH 5.0, Ur Specific [place] 1.010, Urine Protein 100 H, Urine Glucose (UA) Normal, Urine Ketones Negative, Urine Occult Blood 250 H, Urine Nitrite Positive H, Urine Bilirubin Negative, Urine Urobilinogen Normal, Ur Leukocyte Esterase 100 H, Urine RBC 10-25 SEEN, Urine WBC 0-5 SEEN, Ur Squamous Epith Cells 0 SEEN, Urine Bacteria 1+, Urine Mucus 0 SEEN 08/26/19 22:01: Lactic Acid 2.8 H* 08/27/19 05:20: WBC 18.6 H, RBC 2.16 L, Hgb 6.4 L, Hct 21.0 L, MCV 97.2 H, MCH 29.6, MCHC 30.5 L D, RDW Std Deviation 78.3 H, RDW Coeff of Anitra 22.4 H, Plt Count 97 L, MPV 11.4, Neut % (Auto) Not Reportable, Absolute Neuts (auto) 15.0 H , Absolute Lymphs (auto) 0.37 L, Total Counted 100, Neutrophils % (Manual) 44 L, Band Neutrophils % 37 H, Lymphocytes % (Manual) 2 L, Monocytes % (Manual) 5, Metamyelocytes % 9 H, Myelocytes % 3 H, Differential Comment , Diff Path Review May foll, Dohle Bodies RARE, Platelet Estimate MOD DEC, Polychromasia RARE, Hypochromasia 1+, Anisocytosis RARE 08/27/19 05:20: Sodium 136, Potassium 4.2, Chloride 105, Carbon Dioxide 22.0, A nion Gap 9, BUN 53 H, Creatinine 1.63 H, Estim Creat Clear Calc 39.16, Est GFR (MDRD) Af Amer 54 L, Est GFR (MDRD) Non-Af 44 L, BUN/Creatinine Ratio 32.5 H, Glucose 106, Calcium 7.6 L, Total Bilirubin 1.10 H, AST 136 H, ALT 127 H, Alkaline Phosphatase 358 H, Total Protein 5.0 L, Albumin 1.9 L, Globulin 3.1, Albumin/Globulin Ratio 0.6 L Current Medications Acetaminophen (Tylenol) 650 mg PO Q6H PRN PRN PRN Reason: Pain Score 1-10/Temp > 100.7 F Albuterol Sulfate (Ventolin Aerosols) 2.5 mg INHALATION Q4H PRN PRN PRN Reason: SOB/Wheezing Albuterol/Ipratropium (Duoneb) 3 ml INHALATION Q6H.RT [facility] Last Admin: 08/27/19 00:32 Dose: Not Given Documented by: Allopurinol (Zyloprim) 300 mg PO DAILY [facility] Apixaban (Eliquis) 5 mg PO BID [facility] Last Admin: 08/26/19 23:56 Dose: 5 mg Documented by: Hydrocortisone Sodium Succinate (Solu-Cortef) 50 mg IV Q6 [facility] Last Admin: 08/27/19 05:17 Dose: 50 mg Documented by: Sodium Chloride () 1,000 mls @ 100 mls/hr IV .Q10H [facility] Last Infusion: 08/27/19 05:27 Dose: 100 mls/hr Documented by: Piperacillin Sod/Tazobactam (Sod 3.375 gm/ Sodium Chloride) 50 mls @ 12.5 mls/hr IV Q8 [facility] Last Admin: 08/27/19 05:18 Dose: 12.5 mls/hr Documented by: Sodium Chloride () 250 mls @ 15 mls/hr IV .[id number] PRN PRN Reason: Saline Flush Last Infusion: 08/27/19 05:18 Dose: 0 mls/hr Documented by: Sodium Chloride () 250 mls @ 15 mls/hr IV .[id number] PRN PRN Reason: Additional IVPB Infusion Norepinephrine Bitartrate 8 mg (/ Sodium Chloride) 250 mls @ 9.375 mls/hr CONT INF .[id number] [facility]; Protocol Last Titration: 08/27/19 06:45 Dose: 5 mcg/min, 9.4 mls/hr Documented by: Methadone HCl () 5 mg PO BID [facility] Last Admin: 08/26/19 23:56 Dose: 5 mg Documented by: Nutritional Formula (Lactose Free) (Ensure Enlive) 120 ml PO 4X/DAY [facility] Ondansetron HCl (Zofran) 4 mg IV Q8H PRN PRN PRN Reason: NAUSEA/VOMITING Oxycodone HCl (Oxyir) 5 mg PO Q4H PRN PRN PRN Reason: Pain Score 4-10/10 Pantoprazole Sodium (Protonix) 20 mg PO DAILY [facility] Senna/Docusate Sodium (Senokot-S, Kiesha-Colace) 2 tablet PO BID PRN PRN PRN Reason: Constipation Zolpidem Tartrate (Ambien (Generic)) 5 mg PO QHS PRN PRN PRN Reason: INSOMNIA Clinical Impression(s) from Imaging Studies Chest X-Ray 08/26/19 17:14 IMPRESSION: Degenerative changes, as described above. No demonstrated acute cardiopulmonary process. Electronically Signed: Saleem Acevedo MD at 19:26 EDT , Service support , Assessment/Plan Active and Suspected Problems (Last Updated 08/26/19 @ 21:[address] Chandra Baird MD) Septic shock (Acute) Urinary tract infection (Acute) Acute renal insufficiency (Acute) Elevated LFTs (Acute) Acute complicated UTI (Acute) Septic shock (Acute) RECOMMENDATIONS: 1. Transfuse blood products and monitor for active bleeding 2. Continue empiric antibiotics pending culture results 3. Wean Levophed as tolerated 4. DNR Comfort Care arrest without intubation IMPRESSIONS: 1. Septic shock secondary to acute complicated UTI/possible relative adrenal insufficiency Patient does have a nephrostomy, which increases his risk for complications. Gram-negative's are already growing in the blood. Patient is on Zosyn therapy. Likely no indication for vancomycin at this time. Patient was also initiated on hydrocortisone for possible relative adrenal insufficiency. Patient's previous cultures have grown E. coli and Pseudomonas. May have some element of volume depletion. Will attempt to transfuse blood to see if Levophed can be discontinued. 2. Acute kidney injury/elevated LFTs Clinical suspicion for prerenal/distributive etiology. We will continue with supportive care. No indication for renal replacement therapy at this time. Replete electrolytes as necessary. Patient is on anticoagulation at baseline. 3. 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 Patient wishes to be aggressive with acute infectious etiology and will discuss with oncology as an outpatient on whether he will continue with aggressive measures to address the cancer. Patient does have concomitant chronic pain syndrome and should be continued on baseline medications. 4. Acute on chronic anemia Unclear etiology. No active bleeding has been reported by nursing or the patient prior to arrival. Hemoglobin is less than 7, so will transfuse with packed red blood cells. Monitor for active bleeding, but okay to continue with Eliquis for now. Patient likely has some element of depression secondary to chemo and malignancy. 5. Advanced age/history of DVT/reported COPD Complicates care, management, recovery and prognosis. Okay to continue Eliquis from my perspective. Patient does not appear to be in an acute exacerbation of COPD, so baseline bronchodilator therapy is appropriate. TIME: 32 minutes critical care time spent addressing patient's septic shock, acute kidney injury, anemia, review of all data and collaboration with care team (7:30 AM to 8:30 AM) 9xxxx: [id number] Critical care first hour
--- NOTE | 2019-08-27 10:05 | CASEMGMT ---
ONI MARTINEZ Face to Face with patient for initial transition planning/care coordination assessment. ONI MARTINEZ introduced self and role at [facility]. Patient lying in bed, alert and oriented. Patient willing to participate in assessment and is able to answer all questions appropriately. Care providers, pharmacy, and demographics verified. Patient wishes to discharge home, with resumption of services with [facility]. Patient states he has no further needs or concerns at this time. CM to follow for discharge planning needs that may arise. PCP: Rigoberto Dukes at [facility], Specialists: Manolo, oncologist; Manish, urologist Preferred Pharmacy: [facility] or [facility] Insurance: [employer] [facility] Prescription Benefit: yes Living Will/HPOA: yes, Eugenia Brown LNOK: , daugther Living Arrangements: Patient lives with and daughter in 1 story home with 2 steps to enter the home. Patient states he is independent with toileting and dressing, assists with bathing. Transportation: daughter or DME/HHC: Patient states he has shower chair, raised toilet seat, grab bars, and rollator at home. Patient is current with [facility] for home PT, P: [phone] F:[phone]. Patient had home nursing previously but not through [facility], patient unsure of company. ONI MARTINEZ called and updated [facility] regarding admission. Disposition Plan: Patient to discharge home with resumption of HHC, family support, and follow-up plans in place. Rhona CARRIZALES, RN, CM
[2019-08-27] MEDS: 0.9% Saline Lock 10 ML Syringe IV ×3 (10:09→23:06)
[2019-08-27] MEDS: Pantoprazole Sodium 20 MG Tablet PO (10:09)
[2019-08-27] MEDS: Allopurinol 300 MG Tablet PO (10:09)
[2019-08-27] MEDS: APIXABAN 5 MG TABLET PO ×2 (10:09→21:00)
--- NOTE | 2019-08-27 11:32 | PCM.NTREPORT ---
Nutrition Therapy Report - History Nutrition Services has been consulted to:: Manage nutrient details of diet order Current diet / nutrition support order:: regular diet; 120mL Ensure Enlive 4x/day - Anthropometric Measurements Height:: 6 ft 1 in Weight:: 69.8 kg Body Mass Index (BMI):: 20.2 - Relevant Labs Relevant Labs:: WBC 18.6 K/mm3 (4.4-11.0) H 08/27/19 05:20 RBC 2.16 M/mm3 (4.6-6.2) L 08/27/19 05:20 Hgb 6.4 g/dL (13.0-16.5) L 08/27/19 05:20 Hct 21.0 % (40-54) L 08/27/19 05:20 MCV 97.2 fL (80-94) H 08/27/19 05:20 MCHC 30.5 g/dL (32-36) L D 08/27/19 05:20 RDW Std Deviation 78.3 fl (35.1-43.9) H 08/27/19 05:20 RDW Coeff of Anitra 22.4 % (11.6-14.6) H 08/27/19 05:20 Plt Count 97 K/mm3 (150-450) L 08/27/19 05:20 Absolute Neuts (auto) 15.0 X10^3/uL (2.0-7.7) H 08/27/19 05:20 Absolute Lymphs (auto) 0.37 X10^3/uL (0.83-4.51) L 08/27/19 05:20 Neutrophils % (Manual) 44 % (47-70) L 08/27/19 05:20 Band Neutrophils % 37 % (0-5) H 08/27/19 05:20 Lymphocytes % (Manual) 2 % (19-41) L 08/27/19 05:20 Metamyelocytes % 9 % (0-1) H 08/27/19 05:20 Myelocytes % 3 (0-0) H 08/27/19 05:20 PT 20.3 SECONDS (11.7-14.9) H 08/26/19 17:30 Carbon Dioxide 15.0 mmol/L (21.0-32.0) L 08/26/19 17:30 Anion Gap 19 (5-15) H 08/26/19 17:30 BUN 53 mg/dL (7-18) H 08/27/19 05:20 Creatinine 1.63 mg/dL (0.70-1.30) H 08/27/19 05:20 Est GFR (MDRD) Af Amer 54 mL/min (>60) L 08/27/19 05:20 Est GFR (MDRD) Non-Af 44 mL/min (>60) L 08/27/19 05:20 BUN/Creatinine Ratio 32.5 RATIO (10-20) H 08/27/19 05:20 Glucose 130 mg/dL (74-106) H 08/26/19 17:30 Lactic Acid 2.8 mmol/L (0.4-1.9) H* 08/26/19 22:01 Calcium 7.6 mg/dL (8.5-10.1) L 08/27/19 05:20 Total Bilirubin 1.10 mg/dL (0.20-1.00) H 08/27/19 05:20 AST 136 U/L (15-37) H 08/27/19 05:20 ALT 127 U/L (16-61) H 08/27/19 05:20 Alkaline Phosphatase 358 U/L (45-117) H 08/27/19 05:20 Total Protein 5.0 g/dL (6.4-8.2) L 08/27/19 05:20 Albumin 1.9 g/dL (3.2-5.0) L 08/27/19 05:20 Albumin/Globulin Ratio 0.6 RATIO (0.9-2.4) L 08/27/19 05:20 - Assessment Food / Nutrition-Related History:: 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 Tries to drink 2 bottles of Ensure or Premier Protein per day. Reports difficulty chewing at times- prefers soft foods. UBW ~145# per pt. CBW 153.9# w/ bilat ankle pitting edema. Per EMR, wt on 07/05/2018 was 149.9# indicating no significant wt loss over past 1 year. Did not eat much at breakfast this AM, accepting of Ensure Enlive. NFPA indicates severe muscle wasting/fat loss in clavicle, orbital, temporal regions. - Nutrition Diagnosis Problem / Etiology / Signs & Symptoms (PES):: Severe, chronic malnutrition r/t metastatic cancer and chemotherapy as evidenced by PO intake estimated to be <75% of estimated nutritional needs for >3 months, severe muscle wasting/fat loss in clavicle, temporal, and orbital region observed during nutrition focused physical exam. Evidence of Malnutrition Exists:: Yes Severe PCM:: Chronic Illness - Nutrition Intervention Nutrition Prescription:: 5834-0298 calories/day; 90-100 g protein/day - Food / Nutrient Delivery Interventions Summary of nutrition intervention:: Discussed types of ONS available at [facility]. Will try magic cup or ensure pudding as feeling up to it. Pt wants to order meals at his discretion- does not want kitchen staff calling room for order. RN and kitchen staff notified. Per ICU rounds, pt may consider hopsice care upon discharge. Would benefit from enteral nutrition support if pt elects to continue aggressive treatment. Nutrition support ordered as / adjusted to:: regular diet- soft foods per pt request. Ensure pudding or magic cup w/ meals. Continue Ensure Enlive 4x/day w/ medpass. Nutrition education provided?: Yes - MNT Monitoring Further MNT monitoring and evaluation required?: Yes MNT Follow-up in:: 3-5 days - Will monitor PO intake, wt, labs, acceptance of ONS and follow-up.
[2019-08-27 12:05] LABS: Pathologist Review Reviewed
[2019-08-27 12:05] LABS: Pathologist Review Reviewed
--- NOTE | 2019-08-27 13:09 | NURSING ---
Was asked to see patient for small open areas to buttocks. nursing had applied a Mepilex dressing last pm. patient had just gotten up in the chair with therapy. was going to have pt stand so this nurse could assess the open areas, patient had requested this nurse wait until a later time when pt is back in bed. Dr Kerr in room to assess patient as well. will most likely wait until tomorrow to assess since dressing had just been applied last pm.
[2019-08-27] MEDS: Senna/Docusate Sodium 1 Tablet 2 TABLET PO (14:08)
--- NOTE | 2019-08-27 17:19 | PN_ITS ---
Patient Problems: Active and Suspected Problems (Last Updated 08/26/19 @ 21:[address] Chandra Baird MD) Septic shock (Acute) Urinary tract infection (Acute) Acute renal insufficiency (Acute) Elevated LFTs (Acute) Acute complicated UTI (Acute) Septic shock (Acute) Subjective: Patient was seen and examined in the ICU, his blood pressure is stable at this time and he is on minimal Levophed drip at this time, patient denies any shortness of breath or chest pain. I have reviewed critical care's notes from today. - Physical Exam Vitals/I&O's: Vital Signs Temp Pulse Resp BP Pulse Ox 97.5 F L 92 19 H 100/59 L 100 08/27/19 16:00 08/27/19 17:00 08/27/19 17:00 08/27/19 17:00 08/27/19 17:00 Oxygen Flow Rate (L/min) 2 Oxygen Delivery Method Room Air Weight: 69.8 kg Body Mass Index (BMI) 20.2 Intake and Output for Last 24 Hours 08/25/19 08/26/19 08/27/19 23:59 23:59 23:59 Intake Total 3213.91 / 3216.26 2159.60 / 2159.60 Output Total 900 / 900 Balance 3213.91 / 3216.26 1259.60 / 1259.60 General: Alert, Oriented x3, Cooperative, No apparent distress, Well developed HEENT: Atraumatic, PERRLA, EOMI, Normocephalic Oral: Moist Mucosa Neck: Supple, No JVD, Negative Carotid Bruits, Trachea Midline, Thyroid Normal Size and Texture Lungs: Clear to auscultation, Normal air movement, No rhonchi, No wheeze, No rales Cardiovascular: Regular rate, Regular Rhythm, Normal S1, Normal S2, No murmurs, PMI Normal, No rub noted, No Gallop Abdomen: Bowel Sounds Present, Soft, Non Tender, Non-Distended, No hernias noted Extremities: No clubbing, No cyanosis, Capillary Refill Less than 3 Seconds, Edema - Generalized lower leg edema is noted bilaterally Skin: No rashes, No breakdown Musculoskeletal: No Tenderness to Palpation of Joints or Extremities, Cachexia, Muscle Wasting Neurological: Cranial nerves II-XII grossly intact, Neuro grossly intact, Sensory exam intact to light touch and pain, Coordination normal Psych/Mental Status: Normal Affect, Appropriate, Alert and oriented to time, place, person, mood and affect Microbiology Past 72 Hours 08/26/19 17:30 Blood Culture (Wb) - Other Blood Culture - Preliminary 08/26/19 15:43 Blood Culture (Wb) - Venous Blood Culture - Preliminary 08/26/19 18:00 Urine, Catheterized Urine Culture - Preliminary Gram negative rachael 08/26/19 17:43 Mucosa - Nasopharyngeal Coronavirus COVID-19 PCR - Final Laboratory Results 08/26/19 17:30: WBC 5.7, RBC 2.73 L, Hgb 8.0 L, Hct 27.6 L, MCV 101.1 H, MCH 29.3, MCHC 29.0 L, RDW Std Deviation 82.5 H, RDW Coeff of Anitra 22.5 H, Plt Count 130 L, MPV 10.4, Neut % (Auto) Not Reportable, Absolute Neuts (auto) 5.3, Absolute Lymphs (auto) 0.06 L, Total Counted 100, Neutrophils % (Manual) 54, Band Neutrophils % 39 H, Lymphocytes % (Manual) 1 L, Monocytes % (Manual) 4, Metamyelocytes % 2 H, Diff Path Review Reviewed, Hypersegmented Neuts PM HEAD COOK, Platelet Estimate SLT DEC, RBC Morphology N CHROM, Anisocytosis 2+ 08/26/19 17:30: PT 20.3 H, INR 1.8, APTT 31.1 08/26/19 17:30: Sodium 136, Potassium 4.2, Chloride 102, Carbon Dioxide 15.0 L, Anion Gap 19 H, BUN 54 H, Creatinine 1.72 H, Estim Creat Clear Calc 36.79, Est GFR (MDRD) Af Amer 50 L, Est GFR (MDRD) Non-Af 42 L, BUN/Creatinine Ratio 31.4 H , Glucose 130 H, Calcium 9.0, Total Bilirubin 1.10 H, AST 128 H, ALT 117 H, Alkaline Phosphatase 620 H, Total Protein 6.1 L, Albumin 2.5 L, Globulin 3.6, Albumin/Globulin Ratio 0.7 L 08/26/19 17:30: Lactic Acid 9.8 H* 08/26/19 17:43: COVID-19 (LEI) Cancelled 08/26/19 18:00: Urine Color Yellow, Urine Clarity Sl. Cloudy, Urine pH 5.0, Ur Specific [place] 1.010, Urine Protein 100 H, Urine Glucose (UA) Normal, Urine Ketones Negative, Urine Occult Blood 250 H, Urine Nitrite Positive H, Urine Bilirubin Negative, Urine Urobilinogen Normal, Ur Leukocyte Esterase 100 H, Urine RBC 10-25 SEEN, Urine WBC 0-5 SEEN, Ur Squamous Epith Cells 0 SEEN, Urine Bacteria 1+, Urine Mucus 0 SEEN 08/26/19 22:01: Lactic Acid 2.8 H* 08/27/19 05:20: WBC 18.6 H, RBC 2.16 L, Hgb 6.4 L, Hct 21.0 L, MCV 97.2 H, MCH 29.6, MCHC 30.5 L D, RDW Std Deviation 78.3 H, RDW Coeff of Anitra 22.4 H, Plt Count 97 L, MPV 11.4, Neut % (Auto) Not Reportable, Absolute Neuts (auto) 15.0 H , Absolute Lymphs (auto) 0.37 L, Total Counted 100, Neutrophils % (Manual) 44 L, Band Neutrophils % 37 H, Lymphocytes % (Manual) 2 L, Monocytes % (Manual) 5, Metamyelocytes % 9 H, Myelocytes % 3 H, Differential Comment , Diff Path Review Reviewed, Dohle Bodies RARE, Platelet Estimate MOD DEC, Polychromasia RARE, Hypochromasia 1+, Anisocytosis RARE 08/27/19 05:20: Sodium 136, Potassium 4.2, Chloride 105, Carbon Dioxide 22.0, Anion Gap 9, BUN 53 H, Creatinine 1.63 H, Estim Creat Clear Calc 39.16, Est GFR (MDRD) Af Amer 54 L, Est GFR (MDRD) Non-Af 44 L, BUN/Creatinine Ratio 32.5 H, Glucose 106, Calcium 7.6 L, Total Bilirubin 1.10 H, AST 136 H, ALT 127 H, Alkaline Phosphatase 358 H, Total Protein 5.0 L, Albumin 1.9 L, Globulin 3.1, Albumin/Globulin Ratio 0.6 L 08/27/19 08:25: Blood Type Pending, Antibody Screen Pending, Crossmatch See Detail Current Medications Acetaminophen (Tylenol) 650 mg PO Q6H PRN PRN PRN Reason: Pain Score 1-10/Temp > 100.7 F Albuterol Sulfate (Ventolin Aerosols) 2.5 mg INHALATION Q4H PRN PRN PRN Reason: SOB/Wheezing Allopurinol (Zyloprim) 300 mg PO DAILY [facility] Last Admin: 08/27/19 10:09 Dose: 300 mg Documented by: Apixaban (Eliquis) 5 mg PO BID [facility] Last Admin: 08/27/19 10:09 Dose: 5 mg Documented by: Heparin Sodium (Beef Lung) () 50 units IV UD PRN PRN Reason: Port-a-Cath (VAD)Heparin Flush Hydrocortisone Sodium Succinate (Solu-Cortef) 50 mg IV Q6 [facility] Last Admin: 08/27/19 11:36 Dose: 50 mg Documented by: Sodium Chloride () 1,000 mls @ 100 mls/hr IV .Q10H [facility] Last Admin: 08/27/19 10:09 Dose: 100 mls/hr Documented by: Piperacillin Sod/Tazobactam (Sod 3.375 gm/ Sodium Chloride) 50 mls @ 12.5 mls/hr IV Q8 [facility] Last Infusion: 08/27/19 17:02 Dose: Infused Documented by: Sodium Chloride () 250 mls @ 15 mls/hr IV .[id number] PRN PRN Reason: Saline Flush Last Infusion: 08/27/19 16:58 Dose: 15 mls/hr Documented by: Sodium Chloride () 250 mls @ 15 mls/hr IV .[id number] PRN PRN Reason: Additional IVPB Infusion Norepinephrine Bitartrate 8 mg (/ Sodium Chloride) 250 mls @ 9.375 mls/hr CONT INF .[id number] [facility]; Protocol Last Titration: 08/27/19 17:00 Dose: 0 mcg/min, 0 mls/hr Documented by: Sodium Chloride () 500 mls @ 15 mls/hr IV PRN PRN PRN Reason: Blood Transfusion Methadone HCl () 5 mg PO BID [facility] Last Admin: 08/27/19 10:11 Dose: 5 mg Documented by: Nutritional Formula (Lactose Free) (Ensure Enlive) 120 ml PO 4X/DAY [facility] Last Admin: 08/27/19 13:02 Dose: 120 ml Documented by: Ondansetron HCl (Zofran) 4 mg IV Q8H PRN PRN PRN Reason: NAUSEA/VOMITING Oxycodone HCl (Oxyir) 5 mg PO Q4H PRN PRN PRN Reason: Pain Score 4-10/10 Pantoprazole Sodium (Protonix) 20 mg PO DAILY [facility] Last Admin: 08/27/19 10:09 Dose: 20 mg Documented by: Senna/Docusate Sodium (Senokot-S, Kiesha-Colace) 2 tablet PO BID PRN PRN PRN Reason: Constipation Last Admin: 08/27/19 14:08 Dose: 2 tablet Documented by: Sodium Chloride () 10 - 40 ml IV UD PRN PRN Reason: Port-a-Cath (VAD) Flush Last Admin: 08/27/19 11:36 Dose: 10 ml Documented by: Sodium Chloride (0.9% Nacl (Sterile) Posiflush) 10 - 40 ml IV UD PRN PRN Reason: Port access or dressing change Sodium Chloride () 10 - 40 ml IV UD PRN PRN Reason: SALINE FLUSH Zolpidem Tartrate (Ambien (Generic)) 5 mg PO QHS PRN PRN PRN Reason: INSOMNIA Medical Necessity - Tobacco Use Smoking Status: Former smoker Assessment/Plan All Active Problems (Last Updated 08/26/19 @ 21:[address] Chandra Baird MD) Septic shock (Acute) Urinary tract infection (Acute) Acute renal insufficiency (Acute) Elevated LFTs (Acute) Acute complicated UTI (Acute) Septic shock (Acute) #1 acute septic shock secondary to urinary tract infection-patient will remain on his current antibiotic coverage per critical care, pressor agents will continue to be weaned if possible. #2 acute urinary tract [id number] rachael, continue present antibiotic coverage #3 protein and caloric malnutrition-chronic, nutritional services is seeing patient #4 metastatic small cell bladder cancer #5 COPD #6 anemia acute on chronic-etiology unclear, patient will receive 2 units of packed red blood cells, recheck CBC tomorrow #7 elevated liver enzymes-possibly secondary to shock liver and or metastatic small cell bladder cancer-recheck CMP tomorrow #8 acute kidney injury-probably secondary to septic shock, continue to monitor kidney functions Inpatient E&M: [id number] Subs Hosp L2
[2019-08-27] MEDS: ChlorproMAZINE 25 MG Tablet PO (20:59)
[2019-08-28] VITALS (18 sets, daily range): BP systolic 95–122; BP diastolic 54–71; PULSE 79–104; RESP 10–20; TEMP 36.3–36.7; O2SAT 95–98
[2019-08-28] MEDS: 0.9% Normal Saline 1,000 ML 100 ML IV (01:42)
[2019-08-28 04:16] LABS: Hematocrit 28.4 % (40-54); Hemoglobin 9.1 g/dL (13.0-16.5); Mean Corpuscular Hgb 29.9 pg (27.0-32.0); Mean Corpuscular Volume 93.4 fL (80-94); Mean Platelet Vol. 11.9 fl (6.2-12.0); POSITIVE COUNT YES; POSITIVE DIFFERENTIAL YES; POSITIVE MORPHOLOGY YES; Platelet Count 72 K/mm3 (150-450); RBC Distribution Width CV 20.1 % (11.6-14.6); RBC Distribution Width SD 66.9 fl (35.1-43.9); Red Blood Count 3.04 M/mm3 (4.6-6.2)
[2019-08-28 04:21] LABS: Differential Indicated MANUAL DIFF
[2019-08-28 04:29] LABS: ALB/GLOB Ratio 0.6 RATIO (0.9-2.4); AST(SGOT) 103 U/L (15-37); Alanine Aminotransfer ALT/SGPT 110 U/L (16-61); Alkaline Phosphatase 278 U/L (45-117); Anion Gap 11 (5-15); BUN 55 mg/dL (7-18); BUN/Creat Ratio 29.3 RATIO (10-20); Calcium,Total 7.7 mg/dL (8.5-10.1); Chloride 108 mmol/L (98-107); Creatinine, Serum 1.88 mg/dL (0.70-1.30); EST Glomerular Filtration Rate 38 mL/min (>60); Est Glom Filt Rate - Afr Amer 45 mL/min (>60); Estimated Creatinine Clearance 34.55 ml/min; Globulin 3.4 g/dL (2.2-4.2); Glucose 135 mg/dL (74-106); Potassium 4.3 mmol/L (3.5-5.1); Protein, Total 5.4 g/dL (6.4-8.2); Sodium Level 138 mmol/L (136-145)
[2019-08-28] MEDS: Hydrocortisone Sod Succinate 100 MG/2 ML Vial 50 MG IV (05:06)
[2019-08-28] MEDS: 0.9% Saline Lock 10 ML Syringe IV (05:09)
[2019-08-28 05:23] LABS: Lymphocyte 2 % (19-41); Monocyte 3 % (0-10); Neutrophil-Band 7 % (0-5); Neutrophil-Segmented 88 % (47-70); Platelet Estimate ADEQUATE (ADEQ); Red Cell Morphology NORM C+C NORMAL (NORM C&C); Total Cells Counted 100 (MANUAL DIFF)
[2019-08-28 05:26] LABS: Absolute Lymphocyte Count 0.38 X10^3/uL (0.83-4.51); Absolute Neutrophil Count 18.1 X10^3/uL (2.0-7.7); Lymphocyte # 0.38 X10^3/ul (4.0); Neutrophil # 18.05 X10^3/uL (2.7-7.7)
--- NOTE | 2019-08-28 07:21 | PN_ITS ---
Subjective: Patient did well overnight. No acute issues were reported. Patient was able to tolerate room air throughout the day. Levophed was taken off yesterday afternoon and blood pressures have been maintained overnight. Patient did receive 2 units of packed red blood cells and feels subjectively that he has better energy. General: Alert, Oriented x3, Cooperative, No apparent distress, - - Cachectic. No conversational dyspnea. HEENT: Atraumatic, PERRLA, EOMI, Normocephalic, - - No scleral icterus or injection noted Oral: Moist Mucosa, No Gingival or Mucosal Lesions/ Ulcerations Neck: Supple, No JVD, No Nodes, Trachea Midline Lungs: Clear to auscultation, Normal air movement, No rhonchi, No wheeze, No rales, - - Symmetric expansion. No dullness to percussion. Cardiovascular: Regular rate, Regular Rhythm, Normal S1, Normal S2, No murmurs, No rub noted, No Gallop, - - Chest port noted Abdomen: Bowel Sounds Present, Soft, Non Tender, Non-Distended Extremities: No cyanosis, Clubbing, Edema Skin: - - No change compared to previous Musculoskeletal: No Tenderness to Palpation of Joints or Extremities, Cachexia, Muscle Wasting Lymphatic: No Cervical, Supraclavicular, or Inguinal Adenopathy Neurological: Cranial nerves II-XII grossly intact, Neuro grossly intact, Motor Exam 5/5 strength throughout Psych/Mental Status: Alert and oriented to time, place, person, mood and affect Vital Signs Temp Pulse Resp BP Pulse Ox 36.6 C 82 12 97/60 97 08/28/19 04:00 08/28/19 06:00 08/28/19 06:00 08/28/19 06:00 08/28/19 06:00 Oxygen Flow Rate (L/min) 2 Oxygen Delivery Method Room Air Weight: 72.1 kg Body Mass Index (BMI) 20.2 Intake and Output for Last 24 Hours 08/26/19 08/27/19 08/28/19 23:59 23:59 23:59 Intake Total 3213.91 / 3216.26 4067.10 / 4067.10 1120 / 1120 Output Total 1545 / 1545 225 / 225 Balance 3213.91 / 3216.26 2522.10 / 2522.10 895 / 895 Labs (Last 48 Hours) 08/26/19 08/26/19 08/26/19 17:30 17:30 17:30 WBC 5.7 RBC 2.73 L Hgb 8.0 L Hct 27.6 L MCV 101.1 H MCH 29.3 MCHC 29.0 L RDW Std Deviation 82.5 H RDW Coeff of Anitra 22.5 H Plt Count 130 L MPV 10.4 Neut % (Auto) Not Reportable Absolute Neuts (auto) 5.3 Absolute Lymphs (auto) 0.06 L Total Counted 100 Neutrophils % (Manual) 54 Band Neutrophils % 39 H Lymphocytes % (Manual) 1 L Monocytes % (Manual) 4 Metamyelocytes % 2 H Myelocytes % Differential Comment Diff Path Review Reviewed Hypersegmented Neuts PROJECT MANAGEMENT ANALYST Dohle Bodies Platelet Estimate SLT DEC RBC Morphology N CHROM Polychromasia Hypochromasia Anisocytosis 2+ PT 20.3 H INR 1.8 APTT 31.1 Sodium 136 Potassium 4.2 Chloride 102 Carbon Dioxide 15.0 L Anion Gap 19 H BUN 54 H Creatinine 1.72 H Estim Creat Clear Calc 36.79 Est GFR (MDRD) Af Amer 50 L Est GFR (MDRD) Non-Af 42 L BUN/Creatinine Ratio 31.4 H Glucose 130 H Lactic Acid Calcium 9.0 Total Bilirubin 1.10 H AST 128 H ALT 117 H Alkaline Phosphatase 620 H Total Protein 6.1 L Albumin 2.5 L Globulin 3.6 Albumin/Globulin Ratio 0.7 L Urine Color Urine Clarity Urine pH Ur Specific [place] Urine Protein Urine Glucose (UA) Urine Ketones Urine Occult Blood Urine Nitrite Urine Bilirubin Urine Urobilinogen Ur Leukocyte Esterase Urine RBC Urine WBC Ur Squamous Epith Cells Urine Bacteria Urine Mucus COVID-19 (LEI) Blood Type Antibody Screen Crossmatch 08/26/19 08/26/19 08/26/19 17:30 17:43 18:00 WBC RBC Hgb Hct MCV MCH MCHC RDW Std Deviation RDW Coeff of Anitra Plt Count MPV Neut % (Auto) Absolute Neuts (auto) Absolute Lymphs (auto) Total Counted Neutrophils % (Manual) Band Neutrophils % Lymphocytes % (Manual) Monocytes % (Manual) Metamyelocytes % Myelocytes % Differential Comment Diff Path Review Hypersegmented Neuts Dohle Bodies Platelet Estimate RBC Morphology Polychromasia Hypochromasia Anisocytosis PT INR APTT Sodium Potassium Chloride Carbon Dioxide Anion Gap BUN Creatinine Estim Creat Clear Calc Est GFR (MDRD) Af Amer Est GFR (MDRD) Non-Af BUN/Creatinine Ratio Glucose Lactic Acid 9.8 H* Calcium Total Bilirubin AST ALT Alkaline Phosphatase Total Protein Albumin Globulin Albumin/Globulin Ratio Urine Color Yellow Urine Clarity Sl. Cloudy Urine pH 5.0 Ur Specific [place] 1.010 Urine Protein 100 H Urine Glucose (UA) Normal Urine Ketones Negative Urine Occult Blood 250 H Urine Nitrite Positive H Urine Bilirubin Negative Urine Urobilinogen Normal Ur Leukocyte Esterase 100 H Urine RBC 10-25 SEEN Urine WBC 0-5 SEEN Ur Squamous Epith Cells 0 SEEN Urine Bacteria 1+ Urine Mucus 0 SEEN COVID-19 (LEI) Cancelled Blood Type Antibody Screen Crossmatch 08/26/19 08/27/19 08/27/19 22:01 05:20 05:20 WBC 18.6 H RBC 2.16 L Hgb 6.4 L Hct 21.0 L MCV 97.2 H MCH 29.6 MCHC 30.5 L D RDW Std Deviation 78.3 H RDW Coeff of Anitra 22.4 H Plt Count 97 L MPV 11.4 Neut % (Auto) Not Reportable Absolute Neuts (auto) 15.0 H Absolute Lymphs (auto) 0.37 L Total Counted 100 Neutrophils % (Manual) 44 L Band Neutrophils % 37 H Lymphocytes % (Manual) 2 L Monocytes % (Manual) 5 Metamyelocytes % 9 H Myelocytes % 3 H Differential Comment Diff Path Review Reviewed Hypersegmented Neuts Dohle Bodies RARE Platelet Estimate MOD DEC RBC Morphology Polychromasia RARE Hypochromasia 1+ Anisocytosis RARE PT INR APTT Sodium 136 Potassium 4.2 Chloride 105 Carbon Dioxide 22.0 Anion Gap 9 BUN 53 H Creatinine 1.63 H Estim Creat Clear Calc 39.16 Est GFR (MDRD) Af Amer 54 L Est GFR (MDRD) Non-Af 44 L BUN/Creatinine Ratio 32.5 H Glucose 106 Lactic Acid 2.8 H* Calcium 7.6 L Total Bilirubin 1.10 H AST 136 H ALT 127 H Alkaline Phosphatase 358 H Total Protein 5.0 L Albumin 1.9 L Globulin 3.1 Albumin/Globulin Ratio 0.6 L Urine Color Urine Clarity Urine pH Ur Specific [place] Urine Protein Urine Glucose (UA) Urine Ketones Urine Occult Blood Urine Nitrite Urine Bilirubin Urine Urobilinogen Ur Leukocyte Esterase Urine RBC Urine WBC Ur Squamous Epith Cells Urine Bacteria Urine Mucus COVID-19 (LEI) Blood Type Antibody Screen Crossmatch 08/27/19 08/28/19 08/28/19 08:25 04:05 04:05 WBC 19.0 H RBC 3.04 L Hgb 9.1 L Hct 28.4 L MCV 93.4 MCH 29.9 MCHC 32.0 RDW Std Deviation 66.9 H RDW Coeff of Anitra 20.1 H Plt Count 72 L MPV 11.9 Neut % (Auto) Not Reportable Absolute Neuts (auto) 18.1 H Absolute Lymphs (auto) 0.38 L Total Counted 100 Neutrophils % (Manual) 88 H Band Neutrophils % 7 H Lymphocytes % (Manual) 2 L Monocytes % (Manual) 3 Metamyelocytes % Myelocytes % Differential Comment Diff Path Review May foll Hypersegmented Neuts Dohle Bodies Platelet Estimate ADEQUATE RBC Morphology NORM C+C Polychromasia Hypochromasia Anisocytosis PT INR APTT Sodium 138 Potassium 4.3 Chloride 108 H Carbon Dioxide 19.0 L Anion Gap 11 BUN 55 H Creatinine 1.88 H Estim Creat Clear Calc 34.55 Est GFR (MDRD) Af Amer 45 L Est GFR (MDRD) Non-Af 38 L BUN/Creatinine Ratio 29.3 H Glucose 135 H Lactic Acid Calcium 7.7 L Total Bilirubin 0.60 AST 103 H ALT 110 H Alkaline Phosphatase 278 H Total Protein 5.4 L Albumin 2.0 L Globulin 3.4 Albumin/Globulin Ratio 0.6 L Urine Color Urine Clarity Urine pH Ur Specific [place] Urine Protein Urine Glucose (UA) Urine Ketones Urine Occult Blood Urine Nitrite Urine Bilirubin Urine Urobilinogen Ur Leukocyte Esterase Urine RBC Urine WBC Ur Squamous Epith Cells Urine Bacteria Urine Mucus COVID-19 (LEI) Blood Type O NEGATIVE Antibody Screen NEGATIVE Crossmatch See Detail Microbiology 08/26/19 17:30 Blood Culture (Wb) - Other Blood Culture - Preliminary 08/26/19 15:43 Blood Culture (Wb) - Venous Blood Culture - Preliminary 08/26/19 18:00 Urine, Catheterized Urine Culture - Preliminary Gram negative rachael 08/26/19 17:43 Mucosa - Nasopharyngeal Coronavirus COVID-19 PCR - Final Medical Necessity - Tobacco Use Smoking Status: Former smoker Assessment/Plan All Active Problems (Last Updated 08/26/19 @ 21:[address] Chandra Baird MD) Septic shock (Acute) Urinary tract infection (Acute) Acute renal insufficiency (Acute) Elevated LFTs (Acute) Acute complicated UTI (Acute) Septic shock (Acute) RECOMMENDATIONS: 1. Increase activity as tolerated 2. Transition antibiotics once sensitivities are available 3. Okay to leave the intensive care unit from my perspective 4. DNR Comfort Care arrest without intubation IMPRESSIONS: 1. Septic shock secondary to acute complicated UTI/possible relative adrenal insufficiency Patient does have a nephrostomy, which increases his risk for complications. Gram-negative's are growing in the blood. Patient is on Zosyn therapy. Likely no indication for vancomycin at this time. Patient was also initiated on hydrocortisone for possible relative adrenal insufficiency. Will discontinue hydrocortisone. Patient's previous cultures have grown E. coli and Pseudomonas. May have had some element of volume depletion on presentation. Patient actually off of Levophed prior to blood transfusions. 2. Acute kidney injury/elevated LFTs Clinical suspicion for prerenal/distributive etiology. Patient would likely not be candidate for hemodialysis even if indicated. We will continue with supportive care. No indication for renal replacement therapy at this time. Replete electrolytes as necessary. Patient is on anticoagulation at baseline. 3. 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 Patient wishes to be aggressive with acute infectious etiology and will discuss with oncology as an outpatient on whether he will continue with aggressive measures to address the cancer. Patient does have concomitant chronic pain syndrome and should be continued on baseline medications. 4. Acute on chronic anemia Unclear etiology. No active bleeding has been reported by nursing or the patient prior to arrival. Patient responded well to transfusion yesterday. We will continue to monitor. Okay to continue Eliquis from my perspective 5. Advanced age/history of DVT/reported COPD Complicates care, management, recovery and prognosis. Okay to continue Eliquis from my perspective. Patient does not appear to be in an acute exacerbation of COPD, so therapeutic substitution for baseline therapy is appropriate. Inpatient E&M: [id number] [facility] Hosp L3
[2019-08-28] MEDS: Pantoprazole Sodium 20 MG Tablet PO (08:58)
[2019-08-28] MEDS: APIXABAN 5 MG TABLET PO ×2 (08:58→21:34)
[2019-08-28] MEDS: Allopurinol 300 MG Tablet PO (08:58)
[2019-08-28 10:01] LABS: Pathologist Review Reviewed
[2019-08-28] MEDS: 0.9% Normal Saline 1,000 ML 75 ML IV (12:17)
--- NOTE | 2019-08-28 19:07 | PN_ITS ---
Patient Problems: Active and Suspected Problems (Last Updated 08/26/19 @ 21:[address] Chandra Baird MD) Septic shock (Acute) Urinary tract infection (Acute) Acute renal insufficiency (Acute) Elevated LFTs (Acute) Acute complicated UTI (Acute) Septic shock (Acute) Subjective: Patient was seen and examined today, he appears stable for transfer from the ICU today to PCU for further care. Patient had units of packed red blood cells transfused and globin this morning was 9.1, white blood cell count was elevated today at 19,000, patient remains afebrile. Patient's blood culture resulted positive for gram-negative rods, urine culture was positive for E. coli and a gram-positive organism. Patient states he feels improved today as compared with yesterday. - Physical Exam Vitals/I&O's: Vital Signs Temp Pulse Resp BP Pulse Ox 97.6 F L 92 16 122/71 H 98 08/28/19 17:00 08/28/19 17:00 08/28/19 17:00 08/28/19 17:00 08/28/19 17:00 Oxygen Flow Rate (L/min) 2 Oxygen Delivery Method Room Air Weight: 72.1 kg Body Mass Index (BMI) 20.2 Intake and Output for Last 24 Hours 08/26/19 08/27/19 08/28/19 23:59 23:59 23:59 Intake Total 3213.91 / 3216.26 4067.10 / 4067.10 2420 / 2420 Output Total 1545 / 1545 350 / 350 Balance 3213.91 / 3216.26 2522.10 / 2522.10 2069 General: Alert, Oriented x3, Cooperative, No apparent distress, Well developed HEENT: Atraumatic, PERRLA, EOMI, Normocephalic Oral: Moist Mucosa Neck: Supple, No JVD, No Nuchal Rigidity, Trachea Midline, Thyroid Normal Size and Texture Lungs: Clear to auscultation, Normal air movement, No rhonchi, No wheeze, No rales Cardiovascular: Regular rate, Regular Rhythm, Normal S1, Normal S2, No murmurs, PMI Normal, No rub noted Abdomen: Bowel Sounds Present, Soft, Non Tender, Non-Distended, No hernias noted Extremities: No clubbing, No cyanosis, No edema, Capillary Refill Less than 3 Seconds Skin: No rashes, - - Pressure injury is noted to patient's left and right buttocks and these areas are small and less than a centimeter in diameter Musculoskeletal: Cachexia, Muscle Wasting Neurological: Cranial nerves II-XII grossly intact, Neuro grossly intact, Sensory exam intact to light touch and pain, Coordination normal Psych/Mental Status: Normal Affect, Appropriate, Alert and oriented to time, place, person, mood and affect Microbiology Past 72 Hours 08/26/19 18:00 Urine, Catheterized Urine Culture - Preliminary Escherichia coli Gram positive organism 08/26/19 17:30 Blood Culture (Wb) - Other Blood Culture - Preliminary Gram negative rachael 08/26/19 15:43 Blood Culture (Wb) - Venous Blood Culture - Preliminary Gram negative rachael 08/26/19 17:43 Mucosa - Nasopharyngeal Coronavirus COVID-19 PCR - Final Laboratory Results 08/27/19 08:25: Blood Type O NEGATIVE, Antibody Screen NEGATIVE, Crossmatch See Detail 08/28/19 04:05: WBC 19.0 H, RBC 3.04 L, Hgb 9.1 L, Hct 28.4 L, MCV 93.4, MCH 29.9, MCHC 32.0, RDW Std Deviation 66.9 H, RDW Coeff of Anitra 20.1 H, Plt Count 72 L, MPV 11.9, Neut % (Auto) Not Reportable, Absolute Neuts (auto) 18.1 H, Absolute Lymphs (auto) 0.38 L, Total Counted 100, Neutrophils % (Manual) 88 H, Band Neutrophils % 7 H, Lymphocytes % (Manual) 2 L, Monocytes % (Manual) 3, Diff Path Review Reviewed, Platelet Estimate ADEQUATE, RBC Morphology NORM C+C 08/28/19 04:05: Sodium 138, Potassium 4.3, Chloride 108 H, Carbon Dioxide 19.0 L , Anion Gap 11, BUN 55 H, Creatinine 1.88 H, Estim Creat Clear Calc 34.55, Est GFR (MDRD) Af Amer 45 L, Est GFR (MDRD) Non-Af 38 L, BUN/Creatinine Ratio 29.3 H , Glucose 135 H, Calcium 7.7 L, Total Bilirubin 0.60, AST 103 H, ALT 110 H, Alkaline Phosphatase 278 H, Total Protein 5.4 L, Albumin 2.0 L, Globulin 3.4, Albumin/Globulin Ratio 0.6 L Current Medications Acetaminophen (Tylenol) 650 mg PO Q6H PRN PRN PRN Reason: Pain Score 1-10/Temp > 100.7 F Albuterol Sulfate (Ventolin Aerosols) 2.5 mg INHALATION Q4H PRN PRN PRN Reason: SOB/Wheezing Allopurinol (Zyloprim) 300 mg PO DAILY [facility] Last Admin: 08/28/19 08:58 Dose: 300 mg Documented by: Apixaban (Eliquis) 5 mg PO BID [facility] Last Admin: 08/28/19 08:58 Dose: 5 mg Documented by: Chlorpromazine HCl (Thorazine) 25 mg PO BID PRN PRN Reason: Hiccups Last Admin: 08/27/19 20:59 Dose: 25 mg Documented by: Heparin Sodium (Beef Lung) () 50 units IV UD PRN PRN Reason: Port-a-Cath (VAD)Heparin Flush Piperacillin Sod/Tazobactam (Sod 3.375 gm/ Sodium Chloride) 50 mls @ 12.5 mls/hr IV Q8 [facility] Last Infusion: 08/28/19 18:48 Dose: Infused Documented by: Sodium Chloride () 250 mls @ 15 mls/hr IV .[id number] PRN PRN Reason: Saline Flush Last Infusion: 08/28/19 11:45 Dose: Infused Documented by: Sodium Chloride () 250 mls @ 15 mls/hr IV .[id number] PRN PRN Reason: Additional IVPB Infusion Sodium Chloride () 500 mls @ 15 mls/hr IV PRN PRN PRN Reason: Blood Transfusion Sodium Chloride () 1,000 mls @ 75 mls/hr IV .[id number] [facility] Last Admin: 08/28/19 12:17 Dose: 75 mls/hr Documented by: Methadone HCl () 5 mg PO BID [facility] Last Admin: 08/28/19 09:01 Dose: 5 mg Documented by: Nutritional Formula (Lactose Free) (Ensure Enlive) 120 ml PO 4X/DAY [facility] Last Admin: 08/28/19 17:34 Dose: 120 ml Documented by: Ondansetron HCl (Zofran) 4 mg IV Q8H PRN PRN PRN Reason: NAUSEA/VOMITING Oxycodone HCl (Oxyir) 5 mg PO Q4H PRN PRN PRN Reason: Pain Score 4-10/10 Pantoprazole Sodium (Protonix) 20 mg PO DAILY [facility] Last Admin: 08/28/19 08:58 Dose: 20 mg Documented by: Senna/Docusate Sodium (Senokot-S, Kiesha-Colace) 2 tablet PO BID PRN PRN PRN Reason: Constipation Last Admin: 08/27/19 14:08 Dose: 2 tablet Documented by: Sodium Chloride () 10 - 40 ml IV UD PRN PRN Reason: Port-a-Cath (VAD) Flush Last Admin: 08/28/19 05:09 Dose: 10 ml Documented by: Sodium Chloride (0.9% Nacl (Sterile) Posiflush) 10 - 40 ml IV UD PRN PRN Reason: Port access or dressing change Sodium Chloride () 10 - 40 ml IV UD PRN PRN Reason: SALINE FLUSH Zolpidem Tartrate (Ambien (Generic)) 5 mg PO QHS PRN PRN PRN Reason: INSOMNIA Medical Necessity - Tobacco Use Smoking Status: Former smoker Assessment/Plan All Active Problems (Last Updated 08/26/19 @ 21:[address] Chandra Baird MD) Septic shock (Acute) Urinary tract infection (Acute) Acute renal insufficiency (Acute) Elevated LFTs (Acute) Acute complicated UTI (Acute) Septic shock (Acute) #1 acute septic shock secondary to urinary tract infection with resulting gram- negative bacteremia caused by presence of nephrostomy tube-patient will remain on his current antibiotic coverage per critical care, patient was discharged to PCU for further care from the ICU #2 acute urinary tract infection secondary to presence of permanent indwelling nephrostomy tube--presently E. coli and a gram positive bacteria is growing, continue present antibiotic coverage #3 protein and caloric malnutrition-chronic, nutritional services is seeing patient #4 metastatic small cell bladder cancer #5 COPD #6 anemia acute on chronic-etiology unclear, possibly secondary to chronic bladder cancer-recheck CBC tomorrow #7 elevated liver enzymes-possibly secondary to shock liver and or metastatic small cell bladder cancer-liver enzymes are trending downward at this time #8 acute kidney injury-probably secondary to septic shock, continue to monitor kidney functions, repeat BMP tomorrow Inpatient E&M: 75451 Subs Hosp L2
[2019-08-28] MEDS: ChlorproMAZINE 25 MG Tablet PO (21:34)
[2019-08-29] VITALS (10 sets, daily range): BP systolic 97–120; BP diastolic 66–81; PULSE 89–113; RESP 14–20; TEMP 36.3–36.7; O2SAT 96–100
[2019-08-29] MEDS: 0.9% Normal Saline 1,000 ML 75 ML IV (00:10)
[2019-08-29 06:08] LABS: Anion Gap 10 (5-15); BUN 57 mg/dL (7-18); BUN/Creat Ratio 27.9 RATIO (10-20); Chloride 110 mmol/L (98-107); Creatinine, Serum 2.04 mg/dL (0.70-1.30); EST Glomerular Filtration Rate 34 mL/min (>60); Est Glom Filt Rate - Afr Amer 41 mL/min (>60); Estimated Creatinine Clearance 33.98 ml/min; Glucose 88 mg/dL (74-106); Potassium 3.8 mmol/L (3.5-5.1); Sodium Level 139 mmol/L (136-145)
[2019-08-29 06:11] LABS: Absolute Lymphocyte Count 0.37 X10^3/uL (0.83-4.51); Absolute Neutrophil Count 12.3 X10^3/uL (2.0-7.7); Basophil# 0.02 X10^3/uL; Basophil% 0.1 % (0-1); Eosinophil# 0.01 X10^3/uL; Eosinophils% 0.1 % (0-5); Hemoglobin 9.5 g/dL (13.0-16.5); Lymphocyte # 0.37 X10^3/ul (4.0); Lymphocyte % 2.7 % (19-41); Mean Corp Hgb Conc 31.7 g/dL (32-36); Mean Corpuscular Hgb 30.8 pg (27.0-32.0); Mean Corpuscular Volume 97.4 fL (80-94); Mean Platelet Vol. 11.7 fl (6.2-12.0); Monocyte# 0.68 X10^3/uL; NRBC Flagged by Analyzer 0 % (0-5); Neutrophil # 12.26 X10^3/uL (2.7-7.7); Neutrophil % 90.2 % (47-70); POSITIVE COUNT YES; POSITIVE DIFFERENTIAL YES; POSITIVE MORPHOLOGY YES; Platelet Count 61 K/mm3 (150-450); RBC Distribution Width CV 21.1 % (11.6-14.6); RBC Distribution Width SD 72.3 fl (35.1-43.9); Red Blood Count 3.08 M/mm3 (4.6-6.2); White Blood Count 13.6 K/mm3 (4.4-11.0)
[2019-08-29 06:20] LABS: Differential Indicated SCAN CRITERIA MET
[2019-08-29 06:38] LABS: Differential Comment SCANNED; Macrocytosis 2+; Microcytosis 1+; Toxic Granulation 3+
--- NOTE | 2019-08-29 08:30 | NURSING ---
Pt awake in bed. states he is feeling better today, just feels weak still. emptied 150 cc's from nephrostomy tube. Had assessed the buttock wounds yesterday. plan to leave the Mepilex in place for a couple more days. pt set up for breakfast. denies further needs at this time.
--- NOTE | 2019-08-29 08:43 | PN_ITS ---
Subjective: Patient transferred out of the intensive care unit yesterday. Patient overall feels subjectively improved compared to previous. Patient's blood pressure has remained stable and no supplemental oxygen has been required. Patient does report some dizziness with standing, but states it improves with time. General: Alert, Oriented x3, Cooperative, No apparent distress, - - Thin build. No conversational dyspnea HEENT: Atraumatic, PERRLA, EOMI, Normocephalic, - - Some temporal wasting. Oral: No Gingival or Mucosal Lesions/ Ulcerations, Dry Mucosa Neck: Supple, No JVD, No Nodes, Trachea Midline Lungs: No rhonchi, No wheeze, No rales, Diminished, - - Symmetric expansion. Cardiovascular: Regular rate, Normal S1, Normal S2, No murmurs, No rub noted, No Gallop Abdomen: Bowel Sounds Present, Soft, Non Tender, Non-Distended Extremities: No clubbing, No cyanosis, No edema Skin: - - No change compared to previous Musculoskeletal: Cachexia, Muscle Wasting Lymphatic: No Cervical, Supraclavicular, or Inguinal Adenopathy Neurological: Cranial nerves II-XII grossly intact, Neuro grossly intact, Motor Exam 5/5 strength throughout Psych/Mental Status: Alert and oriented to time, place, person, mood and affect Vital Signs Temp Pulse Resp BP Pulse Ox 36.4 C L 92 14 104/66 96 08/29/19 03:30 08/29/19 06:48 08/29/19 03:45 08/29/19 03:30 08/29/19 03:45 Oxygen Flow Rate (L/min) 2 Oxygen Delivery Method Room Air Weight: 74.5 kg Body Mass Index (BMI) 20.2 Intake and Output for Last 24 Hours 08/27/19 08/28/19 08/29/19 23:59 23:59 23:59 Intake Total 4067.10 / 4067.10 2660 / 2660 991.25 / 991.25 Output Total 1545 / 1545 550 / 550 200 / 200 Balance 2522.10 / 2522.10 2110 / 2110 791.25 / 791.25 Labs (Last 48 Hours) 08/26/19 08/27/19 08/27/19 17:30 05: 08:25 WBC RBC Hgb Hct MCV MCH MCHC RDW Std Deviation RDW Coeff of Anitra Plt Count MPV Immature Gran % (Auto) Neut % (Auto) Lymph % (Auto) Crowley % (Auto) Eos % (Auto) Baso % (Auto) Absolute Neuts (auto) Absolute Lymphs (auto) Total Counted Neutrophils % (Manual) Band Neutrophils % Lymphocytes % (Manual) Monocytes % (Manual) Nucleated RBC % Differential Comment Diff Path Review Reviewed Reviewed Toxic Granulation Platelet Estimate RBC Morphology Microcytosis Macrocytosis Sodium Potassium Chloride Carbon Dioxide Anion Gap BUN Creatinine Estim Creat Clear Calc Est GFR (MDRD) Af Amer Est GFR (MDRD) Non-Af BUN/Creatinine Ratio Glucose Calcium Total Bilirubin AST ALT Alkaline Phosphatase Total Protein Albumin Globulin Albumin/Globulin Ratio Blood Type O NEGATIVE Antibody Screen NEGATIVE Crossmatch See Detail 08/28/19 08/28/19 08/29/19 04:05 04:05 05:48 WBC 19.0 H 13.6 H RBC 3.04 L 3.08 L Hgb 9.1 L 9.5 L Hct 28.4 L 30.0 L MCV 93.4 97.4 H MCH 29.9 30.8 MCHC 32.0 31.7 L RDW Std Deviation 66.9 H 72.3 H RDW Coeff of Anitra 20.1 H 21.1 H Plt Count 72 L 61 L MPV 11.9 11.7 Immature Gran % (Auto) 1.900 H Neut % (Auto) Not Reportable 90.2 H Lymph % (Auto) 2.7 L Crowley % (Auto) 5.0 Eos % (Auto) 0.1 Baso % (Auto) 0.1 Absolute Neuts (auto) 18.1 H 12.3 H Absolute Lymphs (auto) 0.38 L 0.37 L Total Counted 100 Neutrophils % (Manual) 88 H Band Neutrophils % 7 H Lymphocytes % (Manual) 2 L Monocytes % (Manual) 3 Nucleated RBC % 0 Differential Comment SCANNED Diff Path Review Reviewed Toxic Granulation 3+ Platelet Estimate ADEQUATE RBC Morphology NORM C+C Microcytosis 1+ Macrocytosis 2+ Sodium 138 Potassium 4.3 Chloride 108 H Carbon Dioxide 19.0 L Anion Gap 11 BUN 55 H Creatinine 1.88 H Estim Creat Clear Calc 34.55 Est GFR (MDRD) Af Amer 45 L Est GFR (MDRD) Non-Af 38 L BUN/Creatinine Ratio 29.3 H Glucose 135 H Calcium 7.7 L Total Bilirubin 0.60 AST 103 H ALT 110 H Alkaline Phosphatase 278 H Total Protein 5.4 L Albumin 2.0 L Globulin 3.4 Albumin/Globulin Ratio 0.6 L Blood Type Antibody Screen Crossmatch 08/29/19 05:48 WBC RBC Hgb Hct MCV MCH MCHC RDW Std Deviation RDW Coeff of Anitra Plt Count MPV Immature Gran % (Auto) Neut % (Auto) Lymph % (Auto) Crowley % (Auto) Eos % (Auto) Baso % (Auto) Absolute Neuts (auto) Absolute Lymphs (auto) Total Counted Neutrophils % (Manual) Band Neutrophils % Lymphocytes % (Manual) Monocytes % (Manual) Nucleated RBC % Differential Comment Diff Path Review Toxic Granulation Platelet Estimate RBC Morphology Microcytosis Macrocytosis Sodium 139 Potassium 3.8 Chloride 110 H Carbon Dioxide 19.0 L Anion Gap 10 BUN 57 H Creatinine 2.04 H Estim Creat Clear Calc 33.98 Est GFR (MDRD) Af Amer 41 L Est GFR (MDRD) Non-Af 34 L BUN/Creatinine Ratio 27.9 H Glucose 88 Calcium 8.0 L Total Bilirubin AST ALT Alkaline Phosphatase Total Protein Albumin Globulin Albumin/Globulin Ratio Blood Type Antibody Screen Crossmatch Microbiology 08/26/19 18:00 Urine, Catheterized Urine Culture - Final Escherichia coli Kocuria rhizophila 08/26/19 17:30 Blood Culture (Wb) - Other Blood Culture - Final Escherichia coli 08/26/19 15:43 Blood Culture (Wb) - Venous Blood Culture - Final Escherichia coli Medical Necessity - Tobacco Use Smoking Status: Former smoker Assessment/Plan All Active Problems (Last Updated 08/26/19 @ 21:[address] Chandra Baird MD) Septic shock (Acute) Urinary tract infection (Acute) Acute renal insufficiency (Acute) Elevated LFTs (Acute) Acute complicated UTI (Acute) Septic shock (Acute) RECOMMENDATIONS: 1. Increase activity as tolerated 2. Consider transition to p.o. antibiotics to complete a 7 to 10-day course 3. Hemodynamically stable on room air. Will sign off from a critical care perspective 4. DNR Comfort Care arrest without intubation. Possible hospice at discharge IMPRESSIONS: 1. Septic shock secondary to acute complicated E. coli UTI/possible relative adrenal insufficiency Patient does have a nephrostomy, which increases his risk for complications. E. coli is growing in the blood. Patient is on Zosyn therapy. Likely no indication for vancomycin at this time. Patient tolerated discont inuation of hydrocortisone well. Patient's previous cultures have grown E. coli and Pseudomonas. May have had some element of volume depletion on presentation, but improved at this point. 2. Acute kidney injury/elevated LFTs Clinical suspicion for prerenal/distributive etiology. Patient would likely not be candidate for hemodialysis even if indicated. We will continue with supportive care. No indication for renal replacement therapy at this time. Replete electrolytes as necessary. Patient is on anticoagulation at baseline. 3. 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 Patient wishes to be aggressive with acute infectious etiology and will discuss with oncology as an outpatient on whether he will continue with aggressive measures to address the cancer. Patient does have concomitant chronic pain syndrome and should be continued on baseline medications. 4. Acute on chronic anemia Unclear etiology. No active bleeding has been reported by nursing or the patient prior to arrival. Patient responded well to transfusion yesterday. We will continue to monitor. Okay to continue Eliquis from my perspective 5. Advanced age/history of DVT/reported COPD Complicates care, management, recovery and prognosis. Okay to continue Eliquis from my perspective. Patient does not appear to be in an acute exacerbation of COPD, so therapeutic substitution for baseline therapy is appropriate. Inpatient E&M: [id number] [facility] Hosp L2
--- NOTE | 2019-08-29 08:49 | CASEMGMT ---
LW/POA forms scanned into summary tab of Eug[facility]nderson is listed as pt's Health Care POA. JESSIE Perez
[2019-08-29] MEDS: APIXABAN 5 MG TABLET PO ×2 (09:08→21:17)
[2019-08-29] MEDS: Pantoprazole Sodium 20 MG Tablet PO (09:08)
[2019-08-29] MEDS: Allopurinol 300 MG Tablet PO (09:08)
--- NOTE | 2019-08-29 13:25 | PCM.PROGNOTE ---
Patient Problems: Active and Suspected Problems (Last Updated 08/26/19 @ 21:[address] Chandra aBird MD) Septic shock (Acute) Urinary tract infection (Acute) Acute renal insufficiency (Acute) Subjective: Day #4 Pedro The patient is a 74-year-old male with a past medical history of hypertension, small cell bladder cancer, cancer related pain, history of VTE, anemia of chronic disease, chronic anticoagulation with Eliquis and urethral stricture who was sent to the emergency department from the [facility] center on 08/26/2023 hypotension. After intravenous fluids in the emergency department he was still hypotensive and was placed on Levophed. Blood work was remarkable for a low hemoglobin of 8 and low platelets of 130,000. The BUN was 54 with a creatinine of 1.72. Lactic acid was markedly elevated at 9.8. Urine was positive for nitrite and leukocyte esterase and +1 bacteria. Chest x-ray showed no acute findings. COVID-19 was negative. EKG showed sinus tachycardia with no ischemic changes or cardiac dysrhythmia. He was admitted to the hospital with a diagnosis of septic shock secondary to complicated urinary tract infection. He was transferred to the progressive care unit on 08/28/2019 and was off pressors. He has been afebrile for the past 2 days. Blood pressures are still on the low side but the mean arterial pressure is 86. He is maintaining appropriate oxygen saturation on room air and his respiratory rate is 20. Fluid balance since admission to the hospital is +9781. Weight has increased from 150 pounds to 164 pounds today. All lab was personally reviewed. The white blood cell count is 13.6 with persistent left shift. Hemoglobin is stable at 9.5 and platelets are 61,000 today. BMP shows a sodium of 139, potassium 3.8, a low serum bicarb of 19, BUN of 57 and a creatinine of 2.04 which is up from 1.63 on 08/27/2019. His creatinine on 07/30/2019 was 0.69. Calcium corrected for hypoalbuminemia is within normal limits. LFTs are elevated. B12, folate, TSH and free T4 have all been recently within normal limits. He tells me he is not ready to go home. His HR is going up into the 130's and 140's with any exertion and it is currently 110 just sitting in a chair. He gets SOB with any exertion. He denies lightheadedness and also denies CP. He thinks his pain is well controlled at this time. No nausea or vomiting but appetite is decreased. He is very tearful because he and his family were told by the ED doc that he had a 80% chance of mortality this admission. Family from out of state has flown home to see him but, even though he wants to go home he feels he can not at this point. - Physical Exam Vitals/I&O's: Vital Signs Temp Pulse Resp BP Pulse Ox 97.5 F L 113 H 20 H 97/81 H 96 08/29/19 09:00 08/29/19 09:00 08/29/19 09:00 08/29/19 09:00 08/29/19 09:22 Oxygen Flow Rate (L/min) 2 Oxygen Delivery Method Room Air Weight: 164 lb 3.91 oz Body Mass Index (BMI) 20.2 Intake and Output for Last 24 Hours 08/27/19 08/28/19 08/29/19 23:59 23:59 23:59 Intake Total 4067.10 / 4067.10 2660 / 2660 2410.00 / 2410.00 Output Total 1545 / 1545 550 / 550 475 / 475 Balance 2522.10 / 2522.10 2110 / 2109 1935.00 / 1935.00 General: Alert, Oriented x3, Cooperative, No apparent distress HEENT: Atraumatic, PERRLA, EOMI, Normocephalic Oral: No Gingival or Mucosal Lesions/ Ulcerations, Dry Mucosa Neck: Supple, No JVD, Trachea Midline Lungs: Clear to auscultation, Normal air movement, No rhonchi, No wheeze, No rales Cardiovascular: Regular Rhythm, Normal S1, Normal S2, No murmurs, No Gallop, Tachycardic Abdomen: Bowel Sounds Present, Soft, Non-Distended Extremities: No clubbing, No cyanosis, Edema - he has pitting edema to the groin both LE's....no TEDS or HUGO's. Legs are dependent. ALB is only 2. Musculoskeletal: Cachexia, Muscle Wasting Neurological: Cranial nerves II-XII grossly intact, Neuro grossly intact Psych/Mental Status: Normal Affect, Appropriate Microbiology Past 72 Hours 08/26/19 18:00 Urine, Catheterized Urine Culture - Final Escherichia coli [place] durbinophila 08/26/19 17:30 Blood Culture (Wb) - Other Blood Culture - Final Escherichia coli 08/26/19 15:43 Blood Culture (Wb) - Venous Blood Culture - Final Escherichia coli 08/26/19 17:43 Mucosa - Nasopharyngeal Coronavirus COVID-19 PCR - Final Laboratory Results 08/29/19 05:48: WBC 13.6 H, RBC 3.08 L, Hgb 9.5 L, Hct 30.0 L, MCV 97.4 H, MCH 30.8, MCHC 31.7 L, RDW Std Deviation 72.3 H, RDW Coeff of Anitra 21.1 H, Plt Count 61 L, MPV 11.7, Immature Gran % (Auto) 1.900 H, Neut % (Auto) 90.2 H, Lymph % (Auto) 2.7 L, [place] % (Auto) 5.0, Eos % (Auto) 0.1, Baso % (Auto) 0.1, Absolute Neuts (auto) 12.3 H, Absolute Lymphs (auto) 0.37 L, Nucleated RBC % 0, Differential Comment SCANNED, Toxic Granulation 3+, Microcytosis 1+, Macrocytosis 2+ 08/29/19 05:48: Sodium 139, Potassium 3.8, Chloride 110 H, Carbon Dioxide 19.0 L, Anion Gap 10, BUN 57 H, Creatinine 2.04 H, Estim Creat Clear Calc 33.98, Est GFR (MDRD) Af Amer 41 L, Est GFR (MDRD) Non-Af 34 L, BUN/Creatinine Ratio 27.9 H, Glucose 88, Calcium 8.0 L Current Medications Acetaminophen (Tylenol) 650 mg PO Q6H PRN PRN PRN Reason: Pain Score 1-10/Temp > 100.7 F Albuterol Sulfate (Ventolin Aerosols) 2.5 mg INHALATION Q4H PRN PRN PRN Reason: SOB/Wheezing Allopurinol (Zyloprim) 300 mg PO DAILY [facility] Last Admin: 08/29/19 09:08 Dose: 300 mg Documented by: Apixaban (Eliquis) 5 mg PO BID [facility] Last Admin: 08/29/19 09:08 Dose: 5 mg Documented by: Chlorpromazine HCl (Thorazine) 25 mg PO BID PRN PRN Reason: Hiccups Last Admin: 08/28/19 21:34 Dose: 25 mg Documented by: Heparin Sodium (Beef Lung) () 50 units IV UD PRN PRN Reason: Port-a-Cath (VAD)Heparin Flush Piperacillin Sod/Tazobactam (Sod 3.375 gm/ Sodium Chloride) 50 mls @ 12.5 mls/hr IV Q8 [facility] Last Infusion: 08/29/19 11:56 Dose: Infused Documented by: Sodium Chloride () 250 mls @ 15 mls/hr IV .[id number] PRN PRN Reason: Saline Flush Last Infusion: 08/28/19 11:45 Dose: Infused Documented by: Sodium Chloride () 250 mls @ 15 mls/hr IV .[id number] PRN PRN Reason: Additional IVPB Infusion Sodium Chloride () 500 mls @ 15 mls/hr IV PRN PRN PRN Reason: Blood Transfusion Sodium Chloride () 1,000 mls @ 75 mls/hr IV .[id number] [facility] Last Infusion: 08/29/19 12:01 Dose: 0 mls/hr Documented by: Methadone HCl () 5 mg PO BID [facility] Last Admin: 08/29/19 09:08 Dose: 5 mg Documented by: Nutritional Formula (Lactose Free) (Ensure Enlive) 120 ml PO 4X/DAY [facility] Last Admin: 08/29/19 09:08 Dose: 120 ml Documented by: Ondansetron HCl (Zofran) 4 mg IV Q8H PRN PRN PRN Reason: NAUSEA/VOMITING Oxycodone HCl (Oxyir) 5 mg PO Q4H PRN PRN PRN Reason: Pain Score 4-10/10 Pantoprazole Sodium (Protonix) 20 mg PO DAILY [facility] Last Admin: 08/29/19 09:08 Dose: 20 mg Documented by: Senna/Docusate Sodium (Senokot-S, Kiesha-Colace) 2 tablet PO BID PRN PRN PRN Reason: Constipation Last Admin: 08/27/19 14:08 Dose: 2 tablet Documented by: Sodium Chloride () 10 - 40 ml IV UD PRN PRN Reason: Port-a-Cath (VAD) Flush Last Admin: 08/28/19 05:09 Dose: 10 ml Documented by: Sodium Chloride (0.9% Nacl (Sterile) Posiflush) 10 - 40 ml IV UD PRN PRN Reason: Port access or dressing change Sodium Chloride () 10 - 40 ml IV UD PRN PRN Reason: SALINE FLUSH Zolpidem Tartrate (Ambien (Generic)) 5 mg PO QHS PRN PRN PRN Reason: INSOMNIA Medical Necessity - Tobacco Use Smoking Status: Former smoker Assessment/Plan All Active Problems (Last Updated 08/26/19 @ 21:[address] Chandra Baird MD) Septic shock (Acute) Urinary tract infection (Acute) Acute renal insufficiency (Acute) Elevated LFTs (Acute) Acute complicated UTI (Acute) Septic shock (Acute) Impressions 1. 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 French 2. Severe protein/calorie malnutrition -decreased appetite and poor intake 3. Depression 4. Acute renal failure 5. Hypo-proteinemia with 4+ LE edema and a + 10L fluid balance since admission. Creat increased again today. 6. 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 Soft tissue mass measuring 2.5 cm x 2.7 cm x 5.2 cm in the left supraclavicular region extending into the left lower cervical region adjacent to the left lobe of the thyroid. There is also a 6.1 cm x 2.9 cm x 4.7 cm soft tissue mass in the upper anterior lateral aspect of the left chest wall. He has mediastinal and left suprahilar adenopathy. 8. Complicated urinary tract infection secondary to E. coli and Kocuria Rhizophila Continue the IV antibiotics Start Remeron 7.5 mg p.o. nightly Start Marinol 2.5 mg p.o. twice daily to stimulate appetite DC IV fluids and start Lasix 20 mg IV every 12 hours. Monitor blood pressure closely and the creatinine. Recheck the lab in the a.m. Continue PT/OT Get him back into bed and elevate his legs and apply compression Accurate I&O Discussed with his family per face time on IPAD He wants to go home and not to SNF. His family is in from out of state and I think he would greatly benefit from seeing them in person. I reviewed his code status with him. His prognosis is poor and he may not live much longer. I will discuss palliative care with him and his family tomorrow Inpatient E&M: 26173 Subs Hosp L2
--- NOTE | 2019-08-29 14:14 | CASEMGMT ---
Green sheet on chart for Resumption of HHC. Gisela BUNN CM
[2019-08-29] MEDS: Polyethylene Glycol 3350 17 GM PACKET PO (16:47)
[2019-08-29] MEDS: Bisacodyl 5 MG Tablet 10 MG PO (16:47)
[2019-08-29] MEDS: Furosemide 20 MG/2 ML VIAL IV (16:48)
[2019-08-29] MEDS: 0.9% Saline Lock 10 ML Syringe IV (16:48)
[2019-08-29] MEDS: Dronabinol 2.5 MG Capsule PO (16:48)
[2019-08-29] MEDS: ChlorproMAZINE 25 MG Tablet PO (16:54)
[2019-08-29 16:57] LABS: Magnesium 1.5 mg/dL (1.6-2.6); Phosphorus 2.1 mg/dL (2.5-4.9)
[2019-08-29] MEDS: Senna/Docusate Sodium 1 Tablet 2 TABLET PO (21:17)
[2019-08-29] MEDS: Mirtazapine 15 MG Tablet 7.5 MG PO (21:19)
--- NOTE | 2019-08-30 02:27 | NURSING ---
Bladder scanned pt. per his request. 175 cc scanned in bladder with 225 cc emptied from urostomy bag. Pt. not in any distress.
[2019-08-30 03:00] VITALS: BP 102/63; PULSE 114; PULSE 116; RESP 16; TEMP 36.7; O2SAT 97
[2019-08-30 06:14] LABS: Absolute Lymphocyte Count 0.34 X10^3/uL (0.83-4.51); Absolute Neutrophil Count 12.8 X10^3/uL (2.0-7.7); Basophil# 0.03 X10^3/uL; Basophil% 0.2 % (0-1); Eosinophil# 0.01 X10^3/uL; Eosinophils% 0.1 % (0-5); Hemoglobin 10.1 g/dL (13.0-16.5); Lymphocyte # 0.34 X10^3/ul (4.0); Lymphocyte % 2.4 % (19-41); Mean Corp Hgb Conc 31.6 g/dL (32-36); Mean Corpuscular Hgb 30.2 pg (27.0-32.0); Mean Corpuscular Volume 95.8 fL (80-94); Mean Platelet Vol. 11.9 fl (6.2-12.0); Monocyte# 0.79 X10^3/uL; Monocyte% 5.6 % (0-10); NRBC Flagged by Analyzer 0 % (0-5); Neutrophil # 12.78 X10^3/uL (2.7-7.7); Neutrophil % 90.8 % (47-70); POSITIVE COUNT YES; POSITIVE DIFFERENTIAL YES; POSITIVE MORPHOLOGY YES; Platelet Count 60 K/mm3 (150-450); RBC Distribution Width SD 71.6 fl (35.1-43.9); Red Blood Count 3.34 M/mm3 (4.6-6.2); White Blood Count 14.1 K/mm3 (4.4-11.0)
[2019-08-30 06:23] LABS: Differential Indicated SCAN CRITERIA MET
[2019-08-30] MEDS: Dronabinol 2.5 MG Capsule PO (06:39)
[2019-08-30 06:50] VITALS: PULSE 119
[2019-08-30 06:55] VITALS: O2SAT 95
[2019-08-30 06:59] LABS: Anion Gap 11 (5-15); BUN 57 mg/dL (7-18); BUN/Creat Ratio 23.6 RATIO (10-20); Calcium,Total 8.3 mg/dL (8.5-10.1); Chloride 108 mmol/L (98-107); Creatinine, Serum 2.42 mg/dL (0.70-1.30); EST Glomerular Filtration Rate 28 mL/min (>60); Est Glom Filt Rate - Afr Amer 34 mL/min (>60); Estimated Creatinine Clearance 28.61 ml/min; Glucose 92 mg/dL (74-106); Magnesium 1.6 mg/dL (1.6-2.6); Potassium 3.9 mmol/L (3.5-5.1); Sodium Level 138 mmol/L (136-145)
[2019-08-30 07:53] LABS: Anisocytosis 2+; Platelet Estimate MOD DEC (ADEQ); Red Cell Morphology N CHROM NORMAL (NORM C&C)
--- NOTE | 2019-08-30 08:00 | PCM.PROGNOTE ---
Patient Problems: Active and Suspected Problems (Last Updated 08/26/19 @ 21:[address] Chandra Baird MD) Septic shock (Acute) Urinary tract infection (Acute) Acute renal insufficiency (Acute) Subjective: Day #5 Pedro Remains afebrile for the past 24 hours Blood pressure is stable off pressors Heart rate is persistently elevated and has ranged from 94-1 19 over the past 24 hours however when he is up and exerting himself I have seen to go into the 130s. He is maintaining appropriate oxygen saturation on room air. Fluid balance on 08/29/2019 was +1540 however after the Lasix was started he put out 2000 cc of urine and overnight had another 525. Intravenous fluids were stopped yesterday. Fluid balance since admission is +9031 All lab was personally reviewed. White blood cell count today is 14.1. Hemoglobin is stable at 10.1. Platelets are 60,000 and stable. Persistent left shift. He has 2+ anisocytosis and has microcytes and macrocytes. BMP today shows a sodium of 138, potassium of 3.2, serum bicarb of 19, BUN of 57 and a creatinine of 2.42, up from 2.04 yesterday. - Physical Exam Vitals/I&O's: Vital Signs Temp Pulse Resp BP Pulse Ox 98.0 F 119 H 16 102/63 95 08/30/19 03:00 08/30/19 06:50 08/30/19 03:00 08/30/19 03:00 08/30/19 06:55 Oxygen Flow Rate (L/min) 2 Oxygen Delivery Method Room Air Weight: 164 lb 0.383 oz Body Mass Index (BMI) 20.2 Intake and Output for Last 24 Hours 08/28/19 08/29/19 08/30/19 23:59 23:59 23:59 Intake Total 2660 / 2660 3540.00 / 3540.00 170 / 170 Output Total 550 / 550 1999 525 / 525 Balance 2109 / 2109 1540.00 / 1540.00 -355 / -355 General: Alert, Cooperative, - - appears comfortable Neck: Supple, Trachea Midline Lungs: Clear to auscultation Cardiovascular: Regular Rhythm, Normal S1, Normal S2, No Gallop, Tachycardic Abdomen: - - pitting edema of the flanks and some pitting of the anterior abd wall. + scrotal edema Extremities: Edema - 4+ up to the groin Skin: No rashes Neurological: Cranial nerves II-XII grossly intact, Neuro grossly intact Microbiology Past 72 Hours 08/26/19 18:00 Urine, Catheterized Urine Culture - Final Escherichia coli [place] durbinophila 08/26/19 17:30 Blood Culture (Wb) - Other Blood Culture - Final Escherichia coli 08/26/19 15:43 Blood Culture (Wb) - Venous Blood Culture - Final Escherichia coli Laboratory Results 08/29/19 05:48: Phosphorus 2.1 L, Magnesium 1.5 L 08/30/19 06:00: WBC 14.1 H, RBC 3.34 L, Hgb 10.1 L, Hct 32.0 L, MCV 95.8 H, MCH 30.2, MCHC 31.6 L, RDW Std Deviation 71.6 H, RDW Coeff of Anitra 21.0 H, Plt Count 60 L, MPV 11.9, Immature Gran % (Auto) 0.900, Neut % (Auto) 90.8 H, Lymph % (Auto) 2.4 L, [place] % (Auto) 5.6, Eos % (Auto) 0.1, Baso % (Auto) 0.2, Absolute Neuts (auto) 12.8 H, Absolute Lymphs (auto) 0.34 L, Nucleated RBC % 0, Platelet Estimate MOD DEC, RBC Morphology N CHROM, Anisocytosis 2+ 08/30/19 06:00: Sodium 138, Potassium 3.9, Chloride 108 H, Carbon Dioxide 19.0 L, Anion Gap 11, BUN 57 H, Creatinine 2.42 H, Estim Creat Clear Calc 28.61, Est GFR (MDRD) Af Amer 34 L, Est GFR (MDRD) Non-Af 28 L, BUN/Creatinine Ratio 23.6 H, Glucose 92, Calcium 8.3 L, Phosphorus 2.0 L, Magnesium 1.6 Current Medications Acetaminophen (Tylenol) 650 mg PO Q6H PRN PRN PRN Reason: Pain Score 1-10/Temp > 100.7 F Albuterol Sulfate (Ventolin Aerosols) 2.5 mg INHALATION Q4H PRN PRN PRN Reason: SOB/Wheezing Allopurinol (Zyloprim) 300 mg PO DAILY [facility] Last Admin: 08/29/19 09:08 Dose: 300 mg Documented by: Apixaban (Eliquis) 5 mg PO BID [facility] Last Admin: 08/29/19 21:17 Dose: 5 mg Documented by: Chlorpromazine HCl (Thorazine) 25 mg PO BID PRN PRN Reason: Hiccups Last Admin: 08/29/19 16:54 Dose: 25 mg Documented by: Dronabinol (Marinol) 2.5 mg PO BIDAC [facility] Last Admin: 08/30/19 06:39 Dose: 2.5 mg Documented by: Furosemide (Lasix) 20 mg IV BID@1000,1800 [facility] Last Admin: 08/29/19 16:48 Dose: 20 mg Documented by: Heparin Sodium (Beef Lung) () 50 units IV UD PRN PRN Reason: Port-a-Cath (VAD)Heparin Flush Piperacillin Sod/Tazobactam (Sod 3.375 gm/ Sodium Chloride) 50 mls @ 12.5 mls/hr IV Q8 [facility] Last Admin: 08/30/19 05:29 Dose: 12.5 mls/hr Documented by: Sodium Chloride () 250 mls @ 15 mls/hr IV .[id number] PRN PRN Reason: Saline Flush Last Infusion: 08/28/19 11:45 Dose: Infused Documented by: Sodium Chloride () 250 mls @ 15 mls/hr IV .[id number] PRN PRN Reason: Additional IVPB Infusion Sodium Chloride () 500 mls @ 15 mls/hr IV PRN PRN PRN Reason: Blood Transfusion Methadone HCl () 5 mg PO BID [facility] Last Admin: 08/29/19 21:19 Dose: 5 mg Documented by: Mirtazapine (Remeron) 7.5 mg PO QHS [facility] Last Admin: 08/29/19 21:19 Dose: 7.5 mg Documented by: Nutritional Formula (Lactose Free) (Ensure Enlive) 120 ml PO 4X/DAY [facility] Last Admin: 08/29/19 21:17 Dose: 120 ml Documented by: Ondansetron HCl (Zofran) 4 mg IV Q8H PRN PRN PRN Reason: NAUSEA/VOMITING Oxycodone HCl (Oxyir) 5 mg PO Q4H PRN PRN PRN Reason: Pain Score 4-10/10 Pantoprazole Sodium (Protonix) 20 mg PO DAILY [facility] Last Admin: 08/29/19 09:08 Dose: 20 mg Documented by: Polyethylene Glycol (Miralax) 17 gm PO DAILY [facility] Last Admin: 08/29/19 16:47 Dose: 17 gm Documented by: Senna/Docusate Sodium (Senokot-S, Kiesha-Colace) 2 tablet PO BID [facility] Last Admin: 08/29/19 21:17 Dose: 2 tablet Documented by: Sodium Chloride () 10 - 40 ml IV UD PRN PRN Reason: Port-a-Cath (VAD) Flush Last Admin: 08/29/19 16:48 Dose: 10 ml Documented by: Sodium Chloride (0.9% Nacl (Sterile) Posiflush) 10 - 40 ml IV UD PRN PRN Reason: Port access or dressing change Sodium Chloride () 10 - 40 ml IV UD PRN PRN Reason: SALINE FLUSH Medical Necessity - Tobacco Use Smoking Status: Former smoker Assessment/Plan All Active Problems (Last Updated 08/26/19 @ 21:[address] Chandra Baird MD) Septic shock (Acute) Urinary tract infection (Acute) Acute renal insufficiency (Acute) Elevated LFTs (Acute) Acute complicated UTI (Acute) Septic shock (Acute) Impressions 1. 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 French 2. Severe protein/calorie malnutrition -decreased appetite and poor intake 3. Depression 4. Nonoliguric acute renal failure - more likely than not multifactorial - hypotension due to septic shock, antibiotics, third spacing of fluids, UTI, bladder outlet obstruction 5. Hypo-proteinemia with 4+ LE edema and a + 10L fluid balance since admission. Creat increased again today. 6. 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 Soft tissue mass measuring 2.5 cm x 2.7 cm x 5.2 cm in the left supraclavicular region extending into the left lower cervical region adjacent to the left lobe of the thyroid. There is also a 6.1 cm x 2.9 cm x 4.7 cm soft tissue mass in the upper anterior lateral aspect of the left chest wall. He has mediastinal and left suprahilar adenopathy. 8. Complicated urinary tract infection secondary to E. coli and Kocuria Rhizophila 9. Thrombocytopenia-likely secondary to infection/septic shock and Zosyn 10. Hypomagnesemia 11. Hypophosphatemia Consult Dr. Angeles Toro to participate in management CT scan of the abdomen and pelvis without contrast Urine electrolytes and urine creatinine Give 1 dose of albumin 25 g today Will give 1 more dose of Lasix this morning and discussed with Dr. Toro when she sees the patient and whether he should have additional doses Supplement magnesium and phosphorus Recheck lab in the a.m. Check urine for eosinophils-no eosinophilia on the white blood cell differential I met with the patient following the CT scan of the abd and we discussed that the IVC is compressed by a large cake of retroperitoneal lymph nodes and this is impeding blood return to the heart. This in turn decreases the blood flow to the left heart and his heart rate is increasing to try to maintain blood pressure in light of decreased stroke volume. The edema and pleural effusions are not going to improve with diuresis and in fact his creatinine is increasing insulin his heart rate. There are extensive liver mets. He now has ascites and anasarca. I discussed hospice with him and he wanted me to speak with his family on face time and we did that. They are all in agreement that the best thing for him at this time would be hospice. He would not survive chemotherapy or radiation. I talked with the hospice nurse on the phone and she is agreeable to accepting [facility] for transfer to the hospice facility. His family is aware. Will arrange for transport by ambulance and give pain medication prior to DC to keep him comfortable on the way to the hospice facility.
--- NOTE | 2019-08-30 08:07 | CT_ITS ---
STUDY: CT ABDOMEN AND PELVIS WITHOUT CONTRAST REASON FOR EXAM: Male, 74 years old. Acute renal failure, right nephrostomy tube, septic shock, UTI. Hx bladder cancer with radiation, chemotherapy and surgical tumor removal. RADIATION DOSAGE (If Supplied By Facility): CTDIvol = ( 7.25 ) mGy, DLP = ( 528.40 ) mGycm TECHNIQUE: Transaxial images were obtained from the dome of the diaphragm to the symphysis pubis without oral contrast, and without intravenous contrast. Sagittal and coronal images were reconstructed. Individualized dose optimization techniques were used for this CT. COMPARISON: Prior abdomen and pelvic CT exam of August 26, 2019 FINDINGS: Increased bilateral pleural effusions. 1.2 cm noncalcified pulmonary nodule at the left lung base 8 x 5 mm ovoid nodule at the base of the right middle lobe not substantially changed from prior exams. Numerous low-density lesions present throughout the liver which are much more clearly visualized on the preceding exam. Enlarged periportal lymph nodes Nondistended gallbladder with pericholecystic fluid. Mild generalized ascites slightly increased from prior exam. Marked generalized anasarca substantially increased from prior exam. There are multiple benign calcified granulomata of the spleen. Normal pancreas. Normal bilateral adrenal glands. The right kidney is not hydronephrotic with a percutaneous pigtail catheter in good position. The left kidney remains hydronephrotic similar to the prior exam. Nondistended stomach. Nondistended small bowel. Normal colon. There is non-visualization of the appendix. Calcifications of the aorta and iliac vessels. Inferior vena cava is compressed by marked retroperitoneal adenopathy not substantially changed from prior exam. Normal retroperitoneum. Small volume full bladder with an asymmetrically thick dome. Scrotal edema. Marked anasarca. Demineralized osseous structures without osteolytic or blastic bone lesions. CT/Abdomen/Pelvis without Cont IMPRESSION: Increased bilateral pleural effusions. Stable pulmonary nodules. Marked generalized anasarca increased from prior exam. Diffuse metastatic disease of the liver similar to the prior exam allowing for lack of IV contrast. Enlarged periportal lymph noted similar to prior exam. Pericholecystic fluid/generalized mild ascites increased from prior exam. Otherwise, nondistended gallbladder. Calcified granuloma of the spleen. Normal pancreas. The right kidney is decompressed by a percutaneous nephrostomy. The left kidney remains hydronephrotic. The ureters appear to be obstructed at the level of the massive retroperitoneal adenopathy. Compression of the inferior vena cava secondary to retroperitoneal adenopathy. Negative for evidence of bowel obstruction or perforation. Small volume full gallbladder with an asymmetrically thickened bladder dome. Scrotal edema. Negative for osteolytic or blastic bone lesions. Electronically Signed: Amaris Phoenix MD at 10:23 EDT , Service support ,
[2019-08-30 09:20] VITALS: BP 115/74; PULSE 122; RESP 16; TEMP 36.6; O2SAT 97
[2019-08-30] MEDS: Albumin Human 25% (100 mL) 25 GM/100 ML BAG IV (09:21)
[2019-08-30] MEDS: 0.9% Saline Lock 10 ML Syringe IV ×3 (09:22→15:24)
[2019-08-30] MEDS: Magnesium Oxide 400 MG Tablet PO (09:23)
[2019-08-30] MEDS: Na Biphos/Potassium Phosphate PACKET 1 PACKET PO (09:23)
[2019-08-30] MEDS: Polyethylene Glycol 3350 17 GM PACKET PO (09:23)
[2019-08-30] MEDS: APIXABAN 5 MG TABLET PO (09:23)
[2019-08-30] MEDS: Senna/Docusate Sodium 1 Tablet 2 TABLET PO (09:24)
[2019-08-30] MEDS: Allopurinol 300 MG Tablet PO (09:24)
[2019-08-30 09:25] LABS: Urine Chloride 66 mmol/L (Not Establ.); Urine Sodium 59 mmol/L (Not Establ.)
[2019-08-30] MEDS: Pantoprazole Sodium 20 MG Tablet PO (09:25)
[2019-08-30] MEDS: Furosemide 20 MG/2 ML VIAL IV (09:25)
[2019-08-30 10:59] VITALS: PULSE 124
--- NOTE | 2019-08-30 13:45 | NURSING ---
This RN called and gave report to ONI Jin at [facility].
[2019-08-30] MEDS: ChlorproMAZINE 25 MG Tablet PO (14:32)
[2019-08-30 14:39] VITALS: BP 132/77; PULSE 117; RESP 16; TEMP 36.6; O2SAT 96
--- NOTE | 2019-08-30 14:50 | PCM.DC.SUM ---
Discharge Date and Diagnosis - Problem List Patient Problems: Active and Suspected Problems (Last Updated 08/26/19 @ 21:[address] Chandra Baird MD) Septic shock (Acute) Urinary tract infection (Acute) Acute renal insufficiency (Acute) Date of Admission: 08/26/19 Date of Discharge: 08/30/19 - Primary Discharge Diagnosis Acute Problems: Active Problems (Last Updated 08/26/19 @ 21:[address] Chandra Baird MD) Septic shock, bacteremia 2/2 acute UTI 2/2 complication of right nephrostomy tube. 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 Severe protein calorie malnutrition Thrombocytopenia Normocytic anemia - Secondary Discharge Diagnosis Chronic Problems: Chronic Problems (Last Updated 08/26/19 @ 21:[address] Chandra Baird MD) Hypertension (Chronic) Bladder cancer (Chronic) Malignant small cell cancer (Chronic) Cancer-related pain (Chronic) DVT (deep venous thrombosis) (Chronic) Anemia of chronic disease (Chronic) Urethral stricture (Chronic) Hospital Course and Treatment Imaging Results: RAD/Chest 1 View (Portable) IMPRESSION: Degenerative changes, as described above. No demonstrated acute cardiopulmonary process. CT/Abdomen/Pelvis without Cont IMPRESSION: Increased bilateral pleural effusions. Stable pulmonary nodules. Marked generalized anasarca increased from prior exam. Diffuse metastatic disease of the liver similar to the prior exam allowing for lack of IV contrast. Enlarged periportal lymph noted similar to prior exam. Pericholecystic fluid/generalized mild ascites increased from prior exam. Otherwise, nondistended gallbladder. Calcified granuloma of the spleen. Normal pancreas. The right kidney is decompressed by a percutaneous nephrostomy. The left kidney remains hydronephrotic. The ureters appear to be obstructed at the level of the massive retroperitoneal adenopathy. Compression of the inferior vena cava secondary to retroperitoneal adenopathy. Negative for evidence of bowel obstruction or perforation. Small volume full gallbladder with an asymmetrically thickened bladder dome. Scrotal edema. Negative for osteolytic or blastic bone lesions. Consultations Critical Care - Kofi 08/26/19 23:12 Consult: Onc/Wound/drill press tender Routine Comment: Reason for Consult:: Patient has 2 superficial lower back bedsores Operations: None Procedures: None Summary of Care Provided: Hospital Course: The patient is a 74 year old M with pmhx as above who presented to [facility] ER with dizziness and low BP. He was sent from the infusion center where he is treated for small cell bladder cancer. He had previously known mets to the liver, retroperitoneal nodes, and pelvic nodes. He was found to be in septic shock with hypotension and UTI. He had previously had Pseudomonas in his urine. He has a right nephrostomy tube in place due to his cancer hx. He was placed on pressors, fluids, zosyn, and admitted to the ICU. Blood cultures were positive and grew out E coli. Urine culture showed E coli and Kocuria rhizophila. His pressure were able to be stabilized and he was transferred out of the unit to the PCU. He unfortunately had worsening of BL lower extremity pitting edema, worsening renal failure, persistent tachycardia, worsening leukocytosis, and overall functional decline. CT abdomen showed compression of the IVC from his lymphadenopathy. Renal function continued to decline. Hospice was recommended. The patient and family were agreeable. He was transferred to the inpatient hospice unit in stable condition. Further care as directed per hospice team. This patient was seen by Reji Otero PA-C under the supervision of Dr. Briceño. [] Patient Problems: Active and Suspected Problems (Last Updated 08/26/19 @ 21:[address] Chandra Baird MD) Septic shock (Acute) Urinary tract infection (Acute) Acute renal insufficiency (Acute) - Physical Exam Vitals/I&O's: Vital Signs Temp Pulse Resp BP Pulse Ox 97.9 F 117 H 16 132/77 H 96 08/30/19 14:39 08/30/19 14:39 08/30/19 14:39 08/30/19 14:39 08/30/19 14:39 Oxygen Flow Rate (L/min) 2 Oxygen Delivery Method Room Air Weight: 164 lb 0.383 oz Body Mass Index (BMI) 20.2 Intake and Output for Last 24 Hours 08/28/19 08/29/19 08/30/19 23:59 23:59 23:59 Intake Total 2660 / 2660 3540.00 / 3540.00 820 / 820 Output Total 550 / 550 1999 1125 / 1125 Balance 2109 / 2109 1540.00 / 1540.00 -305 / -305 General: Alert, Oriented x3, Cooperative, - - frail HEENT: Atraumatic, PERRLA, EOMI, Normocephalic Neck: Supple, No JVD, Negative Carotid Bruits Lungs: Clear to auscultation, Normal air movement Cardiovascular: No murmurs, Tachycardic Abdomen: Bowel Sounds Present, Soft, Non Tender Extremities: No edema, Capillary Refill Less than 3 Seconds Skin: No rashes, No breakdown, - - skin surrounding nephrostomy tube without cellulitic changes. He is tender to light palp in this area. Musculoskeletal: No Tenderness to Palpation of Joints or Extremities Neurological: Cranial nerves II-XII grossly intact Psych/Mental Status: Normal Affect, Appropriate Microbiology Past 72 Hours 08/26/19 18:00 Urine, Catheterized Urine Culture - Final Escherichia coli Kocuria rhizophila 08/26/19 17:30 Blood Culture (Wb) - Other Blood Culture - Final Escherichia coli 08/26/19 15:43 Blood Culture (Wb) - Venous Blood Culture - Final Escherichia coli Laboratory Results 08/29/19 05:48: Phosphorus 2.1 L, Magnesium 1.5 L 08/30/19 06:00: WBC 14.1 H, RBC 3.34 L, Hgb 10.1 L, Hct 32.0 L, MCV 95.8 H, MCH 30.2, MCHC 31.6 L, RDW Std Deviation 71.6 H, RDW Coeff of Anitra 21.0 H, Plt Count 60 L, MPV 11.9, Immature Gran % (Auto) 0.900, Neut % (Auto) 90.8 H, Lymph % (Auto) 2.4 L, [place] % (Auto) 5.6, Eos % (Auto) 0.1, Baso % (Auto) 0.2, Absolute Neuts (auto) 12.8 H, Absolute Lymphs (auto) 0.34 L, Nucleated RBC % 0, Platelet Estimate MOD DEC, RBC Morphology N CHROM, Anisocytosis 2+ 08/30/19 06:00: Sodium 138, Potassium 3.9, Chloride 108 H, Carbon Dioxide 19.0 L, Anion Gap 11, BUN 57 H, Creatinine 2.42 H, Estim Creat Clear Calc 28.61, Est GFR (MDRD) Af Amer 34 L, Est GFR (MDRD) Non-Af 28 L, BUN/Creatinine Ratio 23.6 H, Glucose 92, Calcium 8.3 L, Phosphorus 2.0 L, Magnesium 1.6 08/30/19 08:45: Eos Smear Total Cells Pending 08/30/19 08:45: Urine Creatinine 24.40 08/30/19 08:45: Ur Random Sodium 59, Urine Potassium 19.0, Urine Chloride 66 Current Medications Acetaminophen (Tylenol) 650 mg PO Q6H PRN PRN PRN Reason: Pain Score 1-10/Temp > 100.7 F Albuterol Sulfate (Ventolin Aerosols) 2.5 mg INHALATION Q4H PRN PRN PRN Reason: SOB/Wheezing Allopurinol (Zyloprim) 300 mg PO DAILY [facility] Last Admin: 08/30/19 09:24 Dose: 300 mg Documented by: Apixaban (Eliquis) 5 mg PO BID [facility] Last Admin: 08/30/19 09:23 Dose: 5 mg Documented by: Chlorpromazine HCl (Thorazine) 25 mg PO BID PRN PRN Reason: Hiccups Last Admin: 08/30/19 14:32 Dose: 25 mg Documented by: Dronabinol (Marinol) 2.5 mg PO BIDAC [facility] Last Admin: 08/30/19 06:39 Dose: 2.5 mg Documented by: Heparin Sodium (Beef Lung) () 50 units IV UD PRN PRN Reason: Port-a-Cath (VAD)Heparin Flush Piperacillin Sod/Tazobactam (Sod 3.375 gm/ Sodium Chloride) 50 mls @ 12.5 mls/hr IV Q8 [facility] Last Admin: 08/30/19 13:51 Dose: 12.5 mls/hr Documented by: Sodium Chloride () 250 mls @ 15 mls/hr IV .[id number] PRN PRN Reason: Saline Flush Last Infusion: 08/28/19 11:45 Dose: Infused Documented by: Sodium Chloride () 250 mls @ 15 mls/hr IV .[id number] PRN PRN Reason: Additional IVPB Infusion Sodium Chloride () 500 mls @ 15 mls/hr IV PRN PRN PRN Reason: Blood Transfusion Magnesium Oxide (Mag-Ox 400) 400 mg PO DAILYCM [facility] Last Admin: 08/30/19 09:23 Dose: 400 mg Documented by: Methadone HCl () 5 mg PO BID [facility] Last Admin: 08/30/19 09:33 Dose: 5 mg Documented by: Mirtazapine (Remeron) 7.5 mg PO QHS [facility] Last Admin: 08/29/19 21:19 Dose: 7.5 mg Documented by: Nutritional Formula (Lactose Free) (Ensure Enlive) 120 ml PO 4X/DAY [facility] Last Admin: 08/30/19 13:52 Dose: Not Given Documented by: Ondansetron HCl (Zofran) 4 mg IV Q8H PRN PRN PRN Reason: NAUSEA/VOMITING Oxycodone HCl (Oxyir) 5 mg PO Q4H PRN PRN PRN Reason: Pain Score 4-10/10 Pantoprazole Sodium (Protonix) 20 mg PO DAILY [facility] Last Admin: 08/30/19 09:25 Dose: 20 mg Documented by: Polyethylene Glycol (Miralax) 17 gm PO DAILY [facility] Last Admin: 08/30/19 09:23 Dose: 17 gm Documented by: Potassium Phos/Sodium Phos (Neutra-Phos Packet) 1 packet PO BID [facility] Stop: 08/31/19 22:01 Last Admin: 08/30/19 09:23 Dose: 1 packet Documented by: Senna/Docusate Sodium (Senokot-S, Kiesha-Colace) 2 tablet PO BID [facility] Last Admin: 08/30/19 09:24 Dose: 2 tablet Documented by: Sodium Chloride () 10 - 40 ml IV UD PRN PRN Reason: Port-a-Cath (VAD) Flush Last Admin: 08/30/19 13:51 Dose: 10 ml Documented by: Sodium Chloride (0.9% Nacl (Sterile) Posiflush) 10 - 40 ml IV UD PRN PRN Reason: Port access or dressing change Sodium Chloride () 10 - 40 ml IV UD PRN PRN Reason: SALINE FLUSH Discharge Diet: No Restrictions Discharge Activity: Return to Normal Activity Home Medications: Medications to take at Discharge Ensure Enlive 240 ml PO TID 07/05/18 Ondansetron HCl [Zofran] 8 mg PO TID PRN PRN 05/19/19 Dexamethasone [Decadron] 4 mg PO DAILY 06/27/19 Methadone HCl [(None)] 5 mg PO BID 06/27/19 Tiotropium Hye [Spiriva 18 MCG] 2 puff IH DAILY 06/27/19 Potassium Chloride [K-Dur] 20 meq PO DAILY 06/28/19 Ipratropium/Albuterol Respimat [Combivent Respimat Inhal [place]] 1 puff INHALATION 4X/DAY 07/02/19 Omeprazole [Prilosec] 20 mg PO DAILY 07/02/19 Loperamide [Imodium] 2 mg PO 4X/DAY PRN PRN 07/03/19 Oxycodone [Oxyir] 5 mg PO Q4H PRN PRN 07/03/19 Diphenoxylate/Atrop [Lomotil] 1 tab GT 4X/DAY PRN PRN 10 Days #40 tab 08/01/19 Apixaban [Eliquis] 5 mg PO BID 08/04/19 Chlorpromazine HCl 1 tab PO BID PRN 08/27/19 Allopurinol 300 mg PO DAILY #30 tab 08/29/19 [facility] [Primary [facility]] - Disposition: Hospice Medical Facility Minutes spent on discharge:: 35 Patient Condition:: Stable Medical Necessity - Tobacco Use Smoking Status: Former smoker Meaningful Use Info Meaningful Use Diagnoses (Choose all that apply): None applicable
[2019-08-30] MEDS: fentaNYL 100 MCG/2 ML Ampul 25 MCG IV (15:23)
[2019-08-30] MEDS: ChlorproMAZINE 50 MG/2 ML Ampul 12.5 MG IM (15:24)
[2019-09-01 14:58] LABS: Eosinophil Ct. Urine No Eosinophils Seen % (.)
== END 2019-08-30 15:35 | disposition hospice, inpatient (51) | DRG 698 ==
LOC: ED 20:46 → ICU 22:44 → PCU 08-28 10:40
PROVIDERS: Internal Medicine; Internal Medicine Critical Care Medicine; Admitting Provider Hospitalist; Emergency Provider Emergency Medicine; Referring Provider Hospitalist; Visit Provider Internal Medicine
DX: T83.512A Infection and inflammatory reaction due to nephrostomy catheter, initial encounter (principal); A41.51 Sepsis due to Escherichia coli [E. coli]; R65.21 Severe sepsis with septic shock; E43 Unspecified severe protein-calorie malnutrition; K72.00 Acute and subacute hepatic failure without coma; N13.6 Pyonephrosis; N17.9 Acute kidney failure, unspecified; Z68.1 Body mass index [BMI] 19.9 or less, adult; C78.7 Secondary malignant neoplasm of liver and intrahepatic bile duct; C77.2 Secondary and unspecified malignant neoplasm of intra-abdominal lymph nodes; C77.5 Secondary and unspecified malignant neoplasm of intrapelvic lymph nodes; I82.411 Acute embolism and thrombosis of right femoral vein; N39.0 Urinary tract infection, site not specified; C67.9 Malignant neoplasm of bladder, unspecified; G89.3 Neoplasm related pain (acute) (chronic); G89.4 Chronic pain syndrome; B96.20 Unspecified Escherichia coli [E. coli] as the cause of diseases classified elsewhere; B96.89 Other specified bacterial agents as the cause of diseases classified elsewhere; I87.2 Venous insufficiency (chronic) (peripheral); I10 Essential (primary) hypertension; D69.6 Thrombocytopenia, unspecified; D63.0 Anemia in neoplastic disease; N00-N99 Diseases of the genitourinary system; T45.1X5A Adverse effect of antineoplastic and immunosuppressive drugs, initial encounter; F32.89 Other specified depressive episodes; E86.0 Dehydration; Z66 Do not resuscitate; Z51.5 Encounter for palliative care; Z93.6 Other artificial openings of urinary tract status; Z79.01 Long term (current) use of anticoagulants; Z79.899 Other long term (current) drug therapy; Z87.891 Personal history of nicotine dependence
CPT/HCPCS: 36415; 71045; 74176; 80048; 80053; 81001; 82436; 82570; 83605; 83735; 84100; 84133; 84300; 85025; 85610; 85730; 86644; 86850; 86900; 86901; 86920; 86922; 87040; 87077; 87086; 87088; 87186; 87205; 87635; 93005; 96361; 96365; 96375; 97110; 97162; 97166; 97530; 97802; 99251; 99283; G2023; J7030; J7040; J7050; P9040; P9047; A4216; G0463; J1940; J2405; U0004